=== PATIENT | male | born 1945 | race Caucasian/White ===

== ENCOUNTER 2017-05-10 11:50 | Inpatient (IN) ==
--- NOTE | 2017-05-10 12:43 | EKG Report ---
Test Performed on : 05/10/2017 12:29:55 PM Test Reason : alt. mental status Blood Pressure : / mmHG Vent. Rate : 077 BPM Atrial Rate : 077 BPM P-R Int : 148 ms QRS Dur : 092 ms QT Int : 432 ms P-R-T Axes : 021 -54 139 degrees QTc Int : 488 ms Poor data quality, interpretation may be adversely affected Sinus rhythm. with occasional premature ventricular complexes. Left anterior fascicular block Inferior infarct (cited on or before 12-APR-2012) Cannot rule out Anterior infarct , age undetermined Abnormal ECG When compared with ECG of 06-JAN-2013 21:37, Significant changes have occurred Unconfirmed Result
--- NOTE | 2017-05-10 13:49 | Diag Imaging Result Doc PS360 ---
EXAM: HEAD W/O CONTRAST HISTORY: stroke like symptoms TECHNIQUE: COMPARISON: 04/12/2012 FINDINGS: Subtle hypodense area at the junction of the left temporal and occipital lobes. No parenchymal hemorrhage. No epidural or subdural hematoma. No subarachnoid hemorrhage. No mass identified on this noncontrasted exam. No hydrocephalus. There is atrophy with chronic microvascular ischemic changes. No sinus opacification. IMPRESSION: 1.No hemorrhage. 2.Atrophy with chronic microvascular ischemic changes. 3.Subtle hypodense area at the junction of the left temporal and occipital lobes which may represent a subacute infarct. 4.A preliminary report was called to the emergency room at 1:45 PM. Electronically signed by Benjamin Foley 05/10/2017 1:47 PM
--- NOTE | 2017-05-10 13:51 | Diag Imaging Result Doc PS360 ---
EXAM: CHEST-PORTABLE HISTORY: stroke like symptoms TECHNIQUE: AP upright portable chest at 1337 COMMENT: There is COPD. There are granulomatous calcifications in the right hilum and apparently in the right midlung. Compared to the previous study of 09/07/2016 the appearance of the chest has not changed significantly. IMPRESSION: COPD. Electronically signed by Quinton Glynn 05/10/2017 1:49 PM
[2017-05-10 14:33] LABS: MANUAL DIFF NEEDED? NO; URINE CULTURE NEEDED? NO; URINE MICRO REVIEW NEEDED? NO; URINE SOURCE CLEAN CATCH
[2017-05-10 14:39] LABS: BASO% 0.8 % (0.0-0.8); EOS# 0.15 X1000 (0.0-0.7); EOS% 1.3 % (0.0-10.0); HEMATOCRIT 46.6 % (42.0-52.0); HEMOGLOBIN 15.2 g/dL (14.0-18.0); IMM GRAN# 0.14 X1000 (0.0-0.04); IMM GRAN% 1.2 % (0.0-0.5); LYMPH# 1.44 X1000 (1.2-3.4); LYMPH% 12.3 % (20.5-51.1); MCH 30.3 PG (27-31); MCHC 32.6 g/dL (33-37); MCV 92.8 FL (81-99); MONO# 1.05 X1000 (0.11-0.59); MPV 9.9 FL (7.4-10.4); NEUT% 75.4 % (42.2-75.2); PLT 203 X1000 (130-400); RBC 5.02 XMIL (4.7-6.1)
[2017-05-10 14:40] LABS: BILIRUBIN URINE NEGATIVE (NEGATIVE); BLOOD URINE NEGATIVE (NEGATIVE); COLOR YELLOW; GLUCOSE URINE NEGATIVE (NEGATIVE); LEUKOCYTES URINE NEGATIVE (NEGATIVE); NITRITE URINE NEGATIVE (NEGATIVE); PH URINE 6.5; PROTEIN URINE TRACE mg/dL (NEGATIVE); SP GRAVITY URINE 1.021; TURBIDITY URINE CLEAR (CLEAR); UR EPITHELIAL CELLS <10 /HPF (<10); URINE BACTERIA NEGATIVE /HPF; URINE RBC <10 /HPF (<10); URINE WBC <10 /HPF (<10); UROBILINOGEN URINE NORMAL (NORMAL)
[2017-05-10 14:51] LABS: INR 1.08; PROTIME 11.4 Seconds (9.2-11.7); PTT 26.4 Seconds (22.0-36.0)
[2017-05-10] MEDS ORDERED: ZOFRAN IV PRN (15:03)
[2017-05-10] MEDS ORDERED: TYLENOL PO PRN (15:03)
[2017-05-10] MEDS ORDERED: TORADOL IV PRN (15:03)
[2017-05-10 15:05] LABS: ALBUMIN 4.1 g/dL (3.5-5.0); POTASSIUM 4.3 mmol/L (3.5-5.1); TOTAL BILIRUBIN 0.58 mg/dL (0.20-1.00); TOTAL PROTEIN 7.1 g/dL (6.3-8.3)
--- NOTE | 2017-05-10 15:18 | PROVIDER DOCUMENTATION ---
This chart was entered by Juancarlos Haley Scribe, acting as scribe for Baltazar Coates MD. HPI-General Adult - General Chief Complaint: Altered Mental Status Stated Complaint: AMS Time Seen by Provider: 05/10/17 12:22 Source: patient, family Allergies/Adverse Reactions: Patient Allergies Allergy/AdvReac Type Severity Reaction Status Date / Time No Known Allergies Allergy Verified 05/10/17 12:25 Home Medications: Home Medication List Medication Instructions Recorded Confirmed Last Taken Type Amlodipine [Norvasc] 5 mg PO DAILY 01/06/13 09/07/16 09/06/16 07:00 History Aspirin [Ecotrin] 81 mg PO DAILY 01/06/13 09/07/16 09/06/16 07:00 History Carvedilol [Coreg] 6.25 mg PO BID 01/06/13 09/07/16 09/06/16 20:00 History Potassium Chloride 10 meq PO DAILY 01/06/13 09/07/16 09/06/16 07:00 History Warfarin [Coumadin] 3 mg PO DIRECTED 01/06/13 09/07/16 09/06/16 07:00 History Isosorbide Mononitrate E.r. [Imdur] 30 mg PO DAILY 11/23/13 09/07/16 09/06/16 07 :00 History Budesonide/Formoterol Fumarate 10.2 gm IH BID 02/15/14 09/07/16 09/06/16 20:00 History [Symbicort 80-4.5 Mcg Inhaler] Warfarin Sodium 1.5 mg PO DIRECTED 09/05/15 09/07/16 09/05/16 08:00 History - History of Present Illness -Gen Adult Nature of Presenting Problems: 71 yo M presents to the ER with complaint of trouble remembering and saying what he wanted to say since this AM. Pt denies slurred speech. Pt had some trouble ambulating, but has improved some. PT has been off his blood thinners since May 06 preparing for a prostate biopsy. Quality of Pain: reports: none Severity: reports: mild Onset/Duration: reports: this morning Timing: reports: still present Associated Symptoms: reports: other (trouble remembering and ambulating) Review of Systems - Adult - REVIEW OF SYSTEMS - ADULT Constitutional: denies: chills, fever Cardiovascular: denies: chest pain, palpitations Respiratory: denies: cough, shortness of breath Neurological: reports: see HPI, other (trouble trying to remebering, trouble ambulating) All Other Systems: Reviewed and Negative Past History - Adult - PAST MEDICAL HISTORY-ADULT Review of Records: reports: Old Records Reviewed, Nursing Assessment Review, Medications Reviewed, Social history reviewed & non-contributory. Major Childhood Illnesses: reports: denies history Cardiovascular: reports: CAD, HTN, hyperlipidemia Respiratory: reports: COPD Gastrointestinal: reports: denies history Obstetrical/Gynecological: reports: denies history Genitourinary: reports: other (BPH) Musculoskeletal: reports: denies history Neurological: reports: denies history Endocrine/Immune: reports: denies history Other Conditions: reports: denies history - PRIOR SURGERIES/PROCEDURES Surgical/Procedure History: reports: appendectomy, CABG, other (mechanical aortic valve) - IMMUNIZATION STATUS Childhood Immunizations: See Nurse Assessment Flu Vaccine: See Nurse Assessment - FAMILY HISTORY Family History: cancer (lung-father) Physical Exam-General - PHYSICAL EXAM-ADULT Initial Vital Signs Reviewed: Yes - CONSTITUTIONAL General Appearance: appears well, no apparent distress, slow to respond - RESPIRATORY Respiratory: chest non-tender, lungs clear, normal breath sounds - CARDIOVASCULAR Cardiovascular: normal peripheral pulses, regular rate, rhythm - NEUROLOGIC Neurologic: other (no slurred speech, slow to respond, trouble remembering) Progress - PLAN OF CARE/RESULTS Progress/Plan/Lab Results: Vital Signs - 8 hr 05/10/17 12:00 Temperature 97.7 F Pulse Rate 87 Respiratory Rate 18 Blood Pressure 93/58 O2 Sat by Pulse Oximetry 96 Orders Category Date Time Status Cardiac Monitoring DIRECTED Care 05/10/17 13:12 Active Finger Stick Blood Sugar (ED) DIRECTED Care 05/10/17 13:12 Active Fingerstick Blood Sugar [FSBS/Accucheck Result] NOW Care 05/10/17 12:31 Active Misc. NRSG Communication Order DIRECTED Care 05/10/17 13:12 Active CHEST-PORTABLE [RAD] Stat Exams 05/10/17 13:12 Ordered HEAD W/O CONTRAST [CT] Stat Exams 05/10/17 13:12 Ordered CBC WITH ELECTRONIC DIFF [HEME] Stat Lab 05/10/17 13:12 Uncollected COMPREHENSIVE METABOLIC PANEL [CHEM] Stat Lab 05/10/17 13:12 Uncollected PROTIME WITH INR [COAG] Stat Lab 05/10/17 13:12 Uncollected PTT [COAG] Stat Lab 05/10/17 13:12 Uncollected TROPONIN T Stat Lab 05/10/17 13:12 Uncollected URINALYSIS W/POSS RFLX CULT-1 [URINALYSIS] Stat Lab 05/10/17 13:12 Uncollected EKG [EKG] Stat Ther 05/10/17 12:30 Draft EKG [EKG] Stat Ther 05/10/17 13:12 Ordered Result Diagrams: 05/10/17 14:10 05/10/17 14:10 - EKG 1 Time of EKG reading by physician:: 13:22 EKG Read and Signed by:: Baltazar Coates EKG Interpretation (*Must complete 3 of following elements*): Abnormal (left anterior fasicular block, inferior infarct, age undetermined) Rate: 77 Rhythm: sinus rhythm with occasional premature ventricular comlpexes [place] Interval: normal ST Wave: normal - CONSULTS/PCP/HOSPITALIST Notification #1 *Consult/PCP/Hospitalist*: consulted Dr. More Time Discussed: 15:01 Reason/Comments: admit Consult Disposition: Admit Departure - Departure Date of Disposition Decision: 05/10/17 Time of Disposition Decision: 03:16 DIAGNOSIS: CVA (cerebral vascular accident) Disposition: ADMITTED INPATIENT 09 Certified Medical Emergency: Emergent Condition: Fair Referrals and Follow-Ups: Paul More Jr, MD [Primary Care Provider] - - Critical Care Note This patient required my direct & personal management of CC.: No This chart was documented by the indicated scribe, (Juancarlos Haley Scribe) and accurately reflects the services I performed and decisions made by me, Baltazar Coates MD, as attested by the provider's signature.
--- NOTE | 2017-05-10 15:46 | ED EKG INTERP ---
This chart was entered by Juancarlos Haley Scribe, acting as scribe for Baltazar Coates MD. EKG Interpretation - EKG Time of EKG reading by physician:: 15:32 EKG Read and Signed by:: Baltazar Coates EKG Interpretation (*Must complete 3 of following elements*): Abnormal Rate: 83 Rhythm: sinus tach with 2nd degree AV block with 2:1 AV conduction with premature s [place]: right QRS: normal ST Wave: normal Comments: inferior infarct, age undetermined This chart was documented by the indicated scribe, (Juancarlos Haley Scribe) and accurately reflects the services I performed and decisions made by me, Baltazar Coates MD, as attested by the provider's signature.
--- NOTE | 2017-05-10 16:06 | EKG Report ---
Test Performed on : 05/10/2017 3:02:17 PM Test Reason : Stroke like symptoms Blood Pressure : / mmHG Vent. Rate : 083 BPM Atrial Rate : 131 BPM P-R Int : 000 ms QRS Dur : 082 ms QT Int : 430 ms P-R-T Axes : 000 238 164 degrees QTc Int : 505 ms Sinus tachycardia. with 2nd degree AV block (Mobitz I). with 2:1 AV conduction. with premature supra ventricular complexes. Right superior axis deviation Inferior infarct (cited on or before 12-APR-2012) Abnormal ECG When compared with ECG of 10-MAY-2017 15:00, (Unconfirmed) Sinus rhythm. has replaced Atrial fibrillation. Non-specific change in ST segment in Inferior leads Unconfirmed Result
[2017-05-10] MEDS: LOVENOX SUBQ SCH (17:47)
[2017-05-10] MEDS: ROCEPHIN 1 GM/NS 1 GM/50 ML IVPB IV SCH (17:48)
[2017-05-10] MEDS: NS 1,000 ML IV SCH (17:48)
--- NOTE | 2017-05-10 17:55 | HISTORY AND PHYSICAL ---
CHIEF COMPLAINT: Altered mental status. PRESENT ILLNESS: The patient around 9 a.m. this morning became much more confused. Was going to his computer screen and family member states that he could not remember his password, and they noticed that there were several other things he could not remember. He still, though alert, has trouble remembering. He does have some underlying dementia, but this is much different than what I have noticed in the office. It is interesting that just in the last few days, he had been taken off of his warfarin and had been given Lovenox and then taken off of that, so that he could get a biopsy of his prostate gland. MEDICATIONS: Home medications include B12 dots 500 mcg daily, 81 mg aspirin daily. Caltrate 600+ D up to 1500 mg calcium daily. Coumadin 3 mg tablets. Fosamax 70 mg weekly for osteoporosis and fractured vertebra. Imdur 30 mg daily. Potassium 10 mEq daily. Norvasc 5 mg 1-1/2 pills daily. Rapaflo 8 mg capsules daily. Symbicort 160/4.5 at 2 puffs every 12 hours. Testosterone 200 mg in oil, 1 mL every 2 weeks. Tramadol 50 mg twice daily for pain. Dyazide 1 capsule daily. Vitamin D2, 50,000 units once a week. MEDICAL HISTORY: He has had a previous mechanical aortic valve replacement. He has had a CABG. He has had COPD. Hyperlipidemia, hypertension, peripheral vascular disease with the carotids and he has had chronic pain syndrome. He has had a little bit of dementia, scored 23/30 on a cognitive exam within the last few months, but he is much worse today. REVIEW OF SYSTEMS: I am not sure if it is accurate or not. I asked him all the pertinent questions and he seemed to think that they were all normal, but I asked him what day it was and he could not tell me. He could not tell me what month, what year it was. He could not tell me that he was in the hospital, so he was still very confused. He did remember my name. SURGICAL HISTORY: Includes an appendectomy and CABG, and mechanical aortic valve replacement. FAMILY HISTORY: Positive for lung cancer with his father. VITAL SIGNS: On physical exam, temperature 97.7 degrees Fahrenheit. Pulse is 87, regular. Respirations 18. Blood pressure was a little low at 93/58. He has been given some pain medication. LABORATORY: Shows an INR of only 1.08, but he has been off of his warfarin for the procedure. White count 11,730. Urinalysis was essentially normal. Chemistry profile was essentially normal, though his creatinine is up a little bit at 1.5. His last creatinine at the office during a physical exam was 0.9, so he may be a little dehydrated, perhaps from his procedure. White count being a little high as well. It is possible that he has an infection. PHYSICAL EXAM: GENERAL: He is a well-developed, well-nourished, white male who is very confused, but in no apparent distress. HEENT: Normocephalic. EOMs intact. PERRLA. Throat clear. Fundi not seen well. NECK: Supple without thyromegaly, lymphadenopathy, or carotid bruits. LUNGS: Clear to auscultation and percussion without rhonchi, rales, or wheezes. Chest x-ray was clear. HEART: Regular rate and rhythm without murmurs, gallops, or friction rubs. ABDOMEN: Soft. Active bowel sounds. No organomegaly or tenderness. NEUROLOGIC: Cranial nerves 2-12 intact grossly. Sensory and motor intact. Reflexes 1+ all. Toes are upgoing. Neurologically, I do not find any weakness. PLAN: Will consult Urology, Neurology and Cardiology. We will give him some IV fluids. We will go ahead since he is a little hypotensive, his white count is up, at his creatinine is up and hydrate him and do blood cultures and start him on antibiotics. DIAGNOSES: 1. Altered mental status. 2. Questionable cerebrovascular accident as on the CT scan, there is a possible subacute infarct between the left occipital and left parietal lobes. 3. Chronic pain syndrome. 4. Coronary artery disease. 5. Status post aortic valve replacement, mechanical. cc: Paul More Jr, MD
--- NOTE | 2017-05-10 19:20 | CONSULTATION ---
DATE OF CONSULTATION: 05/10/2017 ATTENDING AND REFERRING PHYSICIAN: Paul More Jr, MD. HISTORY OF PRESENT ILLNESS: This 71-year-old male has a history of an elevated PSA to 5.17. His 4K score was evaluated as high risk for prostate cancer. He underwent transrectal prostate ultrasound and biopsies on 08 May. He had received Levaquin 500 mg p.o. the day before the biopsy, the day of the biopsy, and the day after the biopsy. He received 80 mg of gentamicin IM right before the biopsy. He states that he did well after the biopsy, but was noted today to be confused. He has mild dementia, but this confusion was worse. The patient currently states he just does not feel right. He is on Rapaflo for obstructive voiding symptoms. His prostate ultrasound volume was 128 cubic cm. His urinalysis at admission was negative. PAST MEDICAL HISTORY: Hypertension, elevated cholesterol, coronary artery disease, hypogonadism, erectile dysfunction. CURRENT MEDICATIONS: Are documented on the chart and include Rapaflo and testosterone cipionate. PAST SURGICAL HISTORY: Coronary artery bypass grafting, aortic valve replacement. Appendectomy. SOCIAL HISTORY: No tobacco or alcohol use. ALLERGIES: No known drug allergies. REVIEW OF SYSTEMS: He states that usually he is not having any problems. He denies any problems with diabetes, strokes or seizures. PHYSICAL EXAMINATION: General: An obese, age apparent, normally developed, white male, who is cooperative, but appears somewhat confused. HEENT: Normal for age. Lungs: Clear. Cardiovascular: Regular rate and rhythm. Abdomen: Obese, soft. No hepatosplenomegaly or masses. Normal bowel sounds. : Normal male, both testes down. Scrotal exam is normal. Rectal Exam: Deferred. On the 08 of May it revealed an enlarged (greater than 80 g) smooth and symmetric prostate. Extremities: No clubbing, cyanosis, or edema. Neuro: No focal deficits. LABORATORY EVALUATION: He has a white count of 11.73, a hemoglobin 15.2, hematocrit of 46.6 and platelets are 203,000. Serum electrolytes are normal. BUN 26, creatinine 1.5. His creatinine on 05 April was 1.3. Urinalysis had negative dipstick and negative microscopic exam. IMPRESSION: 1. Enlarged prostate with obstructive voiding. 2. Mental status changes. 3. Prostate ultrasound and biopsy 2 days ago. 4. If this was due to urosepsis, usually the urine would have many white blood cells and bacteria. RECOMMEND: 1. Continuing Rapaflo at 8 mg a day. 2. CT stone search to ensure there is no prostate abscess. Thank you for this consultation. cc: MD Paul Gore Jr, MD
--- NOTE | 2017-05-10 22:27 | Diag Imaging Result Doc PS360 ---
EXAM: ABDOMEN/PELVIS W/O CONTRAST - 05/10/2017 HISTORY: recent prostate biopsy with mental status changes. TECHNIQUE: Without contrast per request the referring provider. Dose reduction protocol. COMPARISON: None. FINDINGS: The visualized lung bases appear clear except for mild subsegmental atelectasis or scarring. There are several fluid density lesions in the liver, largest of which measures 1.9 cm, compatible with cysts. There are some tiny low-density liver lesions which are difficult to specifically evaluate for density due to their small size is, but these likely also represent cysts. There are no substantial abnormalities of the spleen, adrenal glands, or pancreas identified. There are no calcified gallstones or pericholecystic inflammation seen. There is a small nonobstructing stone in the left kidney. There is no obstructing renal stone or hydronephrosis identified. There is a 1.5 cm fluid density lesion at the upper right kidney and there is a 2.8 cm fluid density lesion at the mid left kidney, compatible with cysts. There are no abnormally enlarged lymph nodes identified. There are atherosclerotic calcifications noted. The prostate is substantially enlarged, measuring up to 6.5 cm in AP dimension by up to 7.5 cm in transverse dimension. There is associated mass effect on the base of the urinary bladder. The urinary bladder lizarraga do not appear substantially thickened. There is an apparent ovoid or crescent-shaped stone in the left posterior urinary bladder lumen measuring approximately 12 x 3 mm. There are several apparent generalized thickening of the lizarraga of the rectum with haziness at. Rectal fat and presacral thickening. This may relate to proctitis. There is a small amount of air adjacent to the posterior margin of the prostate which appears nondescriptive likely relates to recent prostate biopsy. There is no discrete abscess identified. The rectosigmoid colon is noted to be elongated, compatible with chronic change. There is a moderate amount retained fecal debris in the colon. There is no evidence of bowel obstruction. There is no free intraperitoneal air identified. IMPRESSION: Small hepatic cysts. Renal cysts. Small nonobstructing stone in left kidney. No hydronephrosis. Substantial enlarged prostate. Small amount of extraluminal air adjacent to posterior marginal of prostate, likely related to recent biopsy. Approximately 12 x 3 mm stone in left posterior urinary bladder lumen. Apparent proctitis. No discrete abscess. Apparent constipation. Electronically signed by Bj Potts 05/10/2017 10:25 PM
[2017-05-10] MEDS: COREG PO SCH (22:35)
[2017-05-11] MEDS: NS 1,000 ML IV SCH ×3 (03:53→18:39)
[2017-05-11] MEDS: ROCEPHIN 1 GM/NS 1 GM/50 ML IVPB IV SCH ×2 (06:00→18:39)
[2017-05-11] MEDS: LOVENOX SUBQ SCH (06:01)
[2017-05-11 08:42] LABS: CALCIUM 8.5 mg/dL (8.8-10.2); POTASSIUM 3.1 mmol/L (3.5-5.1)
[2017-05-11] MEDS ORDERED: KLOR-CON PO SCH (09:00)
[2017-05-11] MEDS ORDERED: NORVASC PO SCH (09:00)
--- NOTE | 2017-05-11 09:32 | PROGRESS NOTE ---
DATE: 05/11/2017 SUBJECTIVE: The patient says he is not having any pain. He is still very confused. I asked him what month this was and he said . I asked him what day it was he said and it is Sunday. I asked him what year it was, and he said April. OBJECTIVE: Vital Signs: Blood pressure of 123/71, after being low when he first came in at 93/58. His respirations are 18. Pulse 95 and regular, temp 97.6 degrees Fahrenheit. O2 saturation is 98% on 2 L of oxygen but he does have a history of some COPD. Potassium is 3.1 so we will supplement. Creatinine is down to 1.3 from 1.5 but at the office it was 0.9. HEENT: Normocephalic. EOMs intact. PERRLA. Throat clear. Lungs: Clear to auscultation and percussion without rhonchi, rales, or wheezes. Heart: Regular rate and rhythm without murmurs, gallops, or friction rubs. Abdomen: Soft. Active bowel sounds. No organomegaly or tenderness. Neurological: Intact grossly except for altered mental status. ASSESSMENT: 1. Altered mental status. 2. Dehydration. 3. Possible cerebrovascular accident. 4. Status post aortic valve replacement. 5. History of atrial fibrillation. 6. Hypokalemia. PLAN: Continue to treat with antibiotics, awaiting blood cultures. Cardiology, urology and neurology are seen. cc: Paul More Jr, MD
[2017-05-11] MEDS: RAPAFLO PO SCH (10:06)
[2017-05-11] MEDS: IMDUR PO SCH (10:07)
[2017-05-11] MEDS: ASPIRIN EC PO SCH (10:07)
[2017-05-11] MEDS: COREG PO SCH ×2 (10:07→21:49)
--- NOTE | 2017-05-11 10:27 | CONSULTATION ---
DATE OF CONSULTATION: 05/11/2017 REASON FOR CONSULTATION: Cardiology was consulted for altered mental status with known ischemic cardiomyopathy and aortic valve replacement. HISTORY OF PRESENT ILLNESS: Patient is disoriented, confused. History was obtained from the chart and discussing with Dr. More. He was admitted. Family apparently noticed that he could not remember and he does have some amount of dementia. He came in and underwent a CT scan of his head, which revealed subtle hypodense area of left temporooccipital lobe of suggestive of subacute infarct. The patient is confused. History could not be obtained in detail from him. However, he looks comfortable. Does not complain of chest pain or palpitations. REVIEW OF SYSTEMS: A 14-point review of systems could not be obtained accurately from the patient. HOME MEDICATIONS: Include Caltrate, Coumadin 3 mg, Fosamax 70 weekly for osteoporosis, Imdur 30, potassium supplements, Norvasc 5 mg 1-1/2 tablets daily, Rapaflo 8 mg capsule, Symbicort 160/4.5 at 2 puffs twice daily, testosterone, tramadol, Dyazide. Current medications additionally is Coumadin which was started. He is on Lovenox. PAST MEDICAL/SURGICAL HISTORY: 1. Coronary artery disease, status post coronary artery bypass grafting in 1998 with HOPKINS to left anterior descending artery, SVG to OM1, bridging graft SVG to OM2, SVG to RCA. 2. Aortic valve replacement. 3. The last cardiac catheterization 09/20/2010: Left anterior descending artery, 70% circumflex 75%. RCA proximal 100%. HOPKINS to LAD patent. Saphenous vein graft to PDA patent. Sequential saphenous vein graft to OM1 and OM2 revealed a patency of graft to OM1. OM2 occluded with [id number] collaterals. 4. Mechanical aortic valve placement. 5. COPD. 6. Dementia. 7. Appendectomy. 8. History of atrial fibrillation. FAMILY HISTORY: Positive for lung cancer. PHYSICAL EXAMINATION: Vital Signs: Blood pressure was 123/71. Heart: Jugular venous pressure was normal. First and second heart sounds were heard. Mechanical valve sounds noted. Respiratory System: Normal air entry. There is no crepitations or rhonchi. Abdomen: Soft. Central Nervous System: Alert, was disoriented, was moving all 4 extremities. Detailed central nervous system examination not performed. LABORATORY EXAMINATION: Revealed a WBC 11.7, hemoglobin 15, hematocrit 46, platelet count 203,000. Sodium 140, potassium 3.1, BUN 21, creatinine 1.3. Urine was negative. He had CT scan done and as above. He had abdominal and pelvic CT as well which revealed small nonobstructive stone in the left kidney. No hydronephrosis. Enlarged prostate. Proctitis. Other laboratory examination revealed PT/INR of 1.08. ASSESSMENT AND PLAN: Mr. Amara Freitas is a 71-year-old gentleman with history of coronary artery disease, status post coronary artery bypass grafting, mechanical aortic valve replacement, hypertension, dyslipidemia, mild dementia, who is admitted with altered mental status and CT scan suggestive of subacute infarct. PLAN: 1. His potassium was low which has been going to be repleted. We will get an echocardiogram to assess cardiac and valvular function. 2. Neurology. Dr. Casey has been consulted. 3. His INR is low. Would recommend Coumadin and Lovenox as planned. Given his stroke, he may warrant a transesophageal echocardiogram to look at the aortic valve as well. We will await for Dr. Casey's recommendations as well. 4. We will plan for this test next week on Sunday or Sunday depending on how he progresses. In the meantime, we will follow his lab work and PT/INR as well. Thank you for the consult. We will follow . cc: MD Paul Duran Jr, MD
--- NOTE | 2017-05-11 11:18 | ECHO REPORT ---
ORDER DATE: 05/10/2017 STUDY: Limited study with Definity. FINDINGS: Definity was used to evaluate left ventricular systolic function. Left ventricular cavity size was normal with an estimated ejection fraction of 60%. cc: MD Paul Duran Jr, MD
[2017-05-11] MEDS: DILAUDID IM PRN (11:29)
--- NOTE | 2017-05-11 13:55 | Diag Imaging Result Doc PS360 ---
EXAM: HEAD W/O CONTRAST INDICATION: dysphasia COMPARISON: 05/10/2017 FINDINGS: There is an evolving acute infarct involving the left temporal lobe that was also seen on the recent previous study. It is stable in size but is more hypoattenuating as compared to the previous study, as expected. No other acute infarcts are appreciated. There is extensive stable low attenuation in the periventricular and subcortical white matter suggesting advanced microangiopathy, and there appears to be a stable chronic lacunar infarct involving the nikole to the left of midline. There is stable diffuse brain atrophy. There is no discrete intracranial mass, mass effect, or intracranial hemorrhage. The surrounding soft tissues and bony structures are essentially unremarkable. IMPRESSION: 1.Evolving acute left temporal lobe infarct that was also seen, albeit more subtly, on the previous recent CT. 2.Otherwise, the brain is stable. Electronically signed by Iban Nair 05/11/2017 1:52 PM
--- NOTE | 2017-05-11 14:18 | CONSULTATION ---
DATE OF CONSULTATION: 05/11/2017 Mr. Freitas is 71 years old and he had a fairly abrupt onset of difficulty with communication yesterday. This was witnessed by a daughter, but she is not present to give firsthand report now. Other family present reports he seemed suddenly unable to communicate with speech and he seemed unsteady with gait. There was never unconsciousness, altered awareness, collapse. He has not had previous diagnosed clinical stroke. He has been taking warfarin chronically for metal heart valve but stopped that several days ago for prostate biopsy which was done. He has never had seizure or other neurologic event. There is no history of recent head injury. He does not use ethanol. Other than stopping warfarin, there has not been any recent medication changes. Workup here includes labs showing mild BUN elevation from baseline teens up to 26 and mild creatinine elevation from a baseline of 0.7-1.0 range up to 1.5. Initial noncontrast CT showed subtle left hemisphere ischemic change. His initial systolic blood pressure was 93, later blood pressures in the 120s. Heart rate has been stable in the 80s. He has been afebrile. There is past history of dyslipidemia treated with rosuvastatin, hypertension treated with amlodipine, carvedilol, hydrochlorothiazide. He does not smoke cigarettes. He has not been treated for diabetes mellitus. He has not had elevated blood sugars this admission. There is report of cognitive impairment. Family present at the bedside now reports he has been doing well with that in recent months, not particularly forgetful, able to manage himself independently. On exam, Mr. Freitas is awake, alert, attentive. He is appropriate. He followed some simple commands consistently. He could not follow commands which required digit distinction and right/left distinction. He named objects but could not name parts of objects. He could not follow written commands. He was able to repeat some words but could not repeat pronouns correctly. I did not test his handwriting. Visual field is full tested grossly by confrontational finger counting. Extraocular movements are full. Facial motility is symmetric. Gag is intact. Tongue is midline. Palate is midline. He can hear. Shoulder shrug is good bilaterally. I can overcome the right deltoid grading 4/5. Tone is very slightly increased in the right arm. He did rapid alternating movements well with each hand. He did well on finger-to- nose testing bilaterally. I did not test his gait. Plantar response is silent bilaterally. IMPRESSION: Dysphasia, minimal right hemiparesis, reported sudden onset yesterday. He has risk factors for cerebrovascular ischemic problems including mechanical heart valve, off warfarin in recent days, hypertension, dyslipidemia, age. The CT findings are noted and, in light of his clinical syndrome, seem likely responsible for this episode. The difficult dilemma regarding when to resume anticoagulation was discussed at length with the patient and family. To help with that decision, I think we can repeat CT to better delineate the extent of infarction. In light of his relatively minimal deficit, slight clinical improvement, reason for anticoagulation I would favor resuming warfarin sooner than later. I discussed frankly with family the risks for converting ischemic infarction into hemorrhagic infarction and possibility that could be devastating. I would continue treating lipids aggressively, continue treating blood pressure cautiously, if at all, assuming he does not have ischemic heart problems. Non neurologic concern will be how soon after prostate biopsy he may resume warfarin. I did not discuss that with family or patient. Thanks for asking me to see Mr. Freitas. cc: MD Paul Giles III, Jr, MD MTDD
[2017-05-11] MEDS ORDERED: COUMADIN PO SCH (21:00)
[2017-05-11] MEDS ORDERED: KLOR-CON PO ONE (21:08)
[2017-05-11] MEDS: CRESTOR PO SCH (21:49)
[2017-05-11] MEDS: COLACE PO SCH (21:49)
[2017-05-11] MEDS: KLOR-CON PO SCH (21:49)
[2017-05-12] MEDS: NS 1,000 ML IV SCH ×4 (03:10→15:13)
[2017-05-12 03:50] LABS: AGAP 13; BUN 16 mg/dL (8-22); CALCIUM 8.1 mg/dL (8.8-10.2); CHLORIDE 103 mmol/L (98-107); COSMO 282; POTASSIUM 3.5 mmol/L (3.5-5.1); SODIUM 141 mmol/L (136-145); TCO2 25 mmol/L (25-35)
[2017-05-12 04:38] LABS: MANUAL DIFF NEEDED? NO
[2017-05-12 05:05] LABS: BASO% 0.8 % (0.0-0.8); EOS# 0.33 X1000 (0.0-0.7); EOS% 3.8 % (0.0-10.0); HEMATOCRIT 46.6 % (42.0-52.0); HEMOGLOBIN 14.8 g/dL (14.0-18.0); IMM GRAN# 0.08 X1000 (0.0-0.04); IMM GRAN% 0.9 % (0.0-0.5); LYMPH# 1.29 X1000 (1.2-3.4); LYMPH% 14.8 % (20.5-51.1); MCHC 31.8 g/dL (33-37); MCV 94.3 FL (81-99); MONO# 0.68 X1000 (0.11-0.59); MONO% 7.8 % (1.7-9.3); MPV 10.1 FL (7.4-10.4); NEUT% 71.9 % (42.2-75.2); PLT 177 X1000 (130-400); RBC 4.94 XMIL (4.7-6.1)
[2017-05-12] MEDS: ROCEPHIN 1 GM/NS 1 GM/50 ML IVPB IV SCH (05:07)
[2017-05-12] MEDS: COREG PO SCH ×2 (09:00→21:40)
[2017-05-12] MEDS: IMDUR PO SCH (09:00)
[2017-05-12] MEDS: ASPIRIN EC PO SCH (09:00)
[2017-05-12] MEDS ORDERED: K-LYTE CL PO SCH (09:00)
[2017-05-12] MEDS: KLOR-CON PO SCH (09:00)
[2017-05-12] MEDS: COLACE PO SCH ×2 (09:00→21:40)
[2017-05-12] MEDS: RAPAFLO PO SCH (09:00)
[2017-05-12 09:57] LABS: INR 1.04; PROTIME 10.9 Seconds (9.2-11.7)
--- NOTE | 2017-05-12 13:46 | PROGRESS NOTE ---
DATE: 05/12/2017 This is coverage for Dr. More. SUBJECTIVE: Patient overall doing fairly well. Says he has minimal weakness in his right arm. He is talking with his son today. He had some bleeding last evening rectally and in his urine. He had a prostate biopsy a couple of days ago. I spoke with Dr. Rosenthal and he says he is stable from a urologic standpoint. The patient had some ventricular tachycardia and has some paroxysmal atrial fibrillation chronically. He is followed by Dr. Yadav and Dr. Lara and Dr. Casey having had a stroke recently. He does have mild weakness and right arm and leg but overall this remains mild and may be improving it appears. OBJECTIVE: Vital signs: Afebrile, pulse 60, respirations 17, blood pressure 122/88, O2 saturation room air 98%. CV: Irregularly irregular. Lungs: CTA. Extremities: No edema. Mild weakness right arm noted, minimal right leg. Neuro: Mild baseline dementia it appears but he does answer questions appropriately and overall is doing fairly well in regard to mentation. Blood cultures x2 remain negative. LABS: White count 8.69, hemoglobin 14.8, platelets 177,000. PT 10.9, INR 1.04. Sodium 141, potassium 3.5, chloride 103, CO2 25, BUN 16, creatinine 1.1, glucose 97, calcium 8.1, magnesium 1.9. ASSESSMENT: 1. Cerebrovascular accident ischemic variety with right arm and leg weakness, mild. 2. In supraventricular tachycardia. 3. Paroxysmal atrial fibrillation on chronic anticoagulation prior to this hospitalization. 4. Mechanical valve on chronic anticoagulation again prior to prostate biopsy in this hospitalization. 5. History of recent prostate biopsy. 6. Gross hematuria and rectal bleeding thought related to recent prostate biopsy. 7. Chronic obstructive pulmonary disease. 8. Dementia. 9. Hyperlipidemia. 10. History of carotid stenosis. PLAN: At this time quite a dilemma on whether to start him back on his Coumadin or not. He had Coumadin, Lovenox last evening but that was stopped as he was bleeding. We are going to hold that today and reconsider starting that back tomorrow. I will speak with Dr. Lara about this in detail as well. Potassium is normalized now. We will watch that closely. Will continue to follow the blood pressure. Not treating that overly aggressive at this point. He is on aspirin and will continue Coreg and Imdur. cc: MD Paul Collado Jr, MD
--- NOTE | 2017-05-12 17:59 | PROGRESS NOTE ---
DATE: 05/12/2017 SUBJECTIVE: The patient still has a little difficulty with word finding. He continues without chest discomfort or dyspnea. He has been in sinus rhythm with some episodes of what is probably atrial fibrillation with aberrancy. He had some blood-tinged urine this morning. OBJECTIVE: Vital Signs: Blood pressure 106/70, heart rate 83 and regular. Neck: There is no significant jugular venous distention. Chest: Clear to auscultation. Cardiac Exam: Reveals a regular rate and rhythm with mechanical 2nd heart sound. No evidence of peripheral edema. LAB DATA: Includes hematocrit 46.6, INR 1.04, potassium 3.7, BUN 16, creatinine 1.1. IMPRESSION: 1. Status post recent cerebrovascular accident about 48 hours ago, possibly embolic given patient with mechanical aortic valve and paroxysmal atrial fibrillation off anticoagulation to facilitate prostate biopsy. 2. Paroxysmal atrial fibrillation. 3. Status post mechanical aortic valve replacement. 4. Atherosclerotic coronary disease with history of previous coronary bypass. 5. Chronic obstructive pulmonary disease. RECOMMENDATIONS: At this point would cautiously initiate Lovenox 80 mg subcu q.12 hours and monitor response. cc: MD Paul Mcfarland Jr, MD
[2017-05-12] MEDS: LOVENOX SUBQ SCH (18:05)
--- NOTE | 2017-05-12 18:28 | CONSULTATION ---
DATE OF CONSULTATION: 05/12/2017 REFERRING PHYSICIAN: Dr. Paul More. We received a consult for this patient for evaluation of a small amount of blood per rectum and blood in his urine. The patient had a prostate biopsy prior to admission. Per Dr. Rosenthal, this is an expected finding this soon after prostate biopsy. The patient adamantly denies rectal bleeding or GI bleeding. He does not want a GI evaluation. Therefore, a full consultation was not performed. We are happy to be available if the bleeding recurs. At this time, we will sign off. cc: MD Paul Leger Jr, MD MTDD
[2017-05-12] MEDS: CRESTOR PO SCH (21:40)
[2017-05-13] MEDS ORDERED: FLEET ENEMA PR ONE (02:12)
[2017-05-13] MEDS: NS 1,000 ML IV SCH (04:30)
[2017-05-13] MEDS: LOVENOX SUBQ SCH ×2 (06:23→17:55)
[2017-05-13] MEDS: ASPIRIN EC PO SCH (09:30)
[2017-05-13] MEDS: IMDUR PO SCH (09:30)
[2017-05-13 09:32] LABS: MANUAL DIFF NEEDED? NO
[2017-05-13] MEDS: RAPAFLO PO SCH (09:32)
[2017-05-13] MEDS: COLACE PO SCH ×2 (09:33→22:03)
[2017-05-13] MEDS: COREG PO SCH ×2 (09:33→22:03)
[2017-05-13 09:36] LABS: BASO% 0.8 % (0.0-0.8); EOS# 0.26 X1000 (0.0-0.7); EOS% 3.3 % (0.0-10.0); HEMATOCRIT 44.6 % (42.0-52.0); HEMOGLOBIN 14.5 g/dL (14.0-18.0); IMM GRAN# 0.07 X1000 (0.0-0.04); IMM GRAN% 0.9 % (0.0-0.5); LYMPH% 11.5 % (20.5-51.1); MCH 30.1 PG (27-31); MCHC 32.5 g/dL (33-37); MCV 92.5 FL (81-99); MONO# 0.62 X1000 (0.11-0.59); MONO% 7.9 % (1.7-9.3); MPV 9.5 FL (7.4-10.4); NEUT% 75.6 % (42.2-75.2); PLT 158 X1000 (130-400); RBC 4.82 XMIL (4.7-6.1)
[2017-05-13 09:43] LABS: INR 1.06; PROTIME 11.2 Seconds (9.2-11.7)
[2017-05-13 09:56] LABS: AGAP 12; BUN 7 mg/dL (8-22); CALCIUM 7.5 mg/dL (8.8-10.2); CHLORIDE 106 mmol/L (98-107); COSMO 281; POTASSIUM 3.5 mmol/L (3.5-5.1); SODIUM 142 mmol/L (136-145); TCO2 24 mmol/L (25-35)
--- NOTE | 2017-05-13 11:15 | PROGRESS NOTE ---
DATE: 05/13/[address] More. SUBJECTIVE: The patient had some difficulty about 5:30 this morning per family members. He became more confused. Tried to take his IV out. Wanted to walk around the hospital and he did walk around the floor without any difficulty. Then he became a little more confused. Then he came back to the room and got back to his baseline quickly. He has had no change in his motor skills. He is back to his baseline that he had been after admission, as to what I has seen him yesterday. He has some word finding difficulties and is overall minimally weak in the right arm but is stable. OBJECTIVE: Vital signs: Afebrile, pulse is 81, respirations 21, blood pressure 125/64, O2 saturation room air 95 to 97%. Telemetry is showing some runs of ventricular tachycardia. Also some A-fib. CV: Irregularly irregular. Lungs: Distant breath sounds. CTA. HEENT: PERRL EOMI. Neurologic: Mild word finding difficulties. Alert and oriented x1. [employer] Lending Tr[employer] strength minimally diminished right arm which is what I had seen him at yesterday. No significant leg weakness. Patient answers questions. He would not allow blood draw this morning earlier when he was confused but he is back more to himself now. ASSESSMENT: 1. Delirium. 2. History of ischemic cerebrovascular accident with some word finding difficulties and right arm weakness primarily, which is fairly mild. 3. Nonsustained ventricular tachycardia episodes, asymptomatic. 4. Paroxysmal atrial fibrillation. 5. Mechanical valve. Back on Lovenox per Dr. Lara. 6. Recent prostate biopsy with some mild persistent bloody urine. 7. No evidence for rectal bleeding. 8. Chronic obstructive pulmonary disease. 9. Dementia. 10. Hyperlipidemia. 11. History of carotid stenosis. PLAN: At this point we will continue Lovenox per Dr. Lara and will need to resume the Coumadin at some point. Continue aspirin, Coreg, mild IV fluids, Rapaflo. I think he is having some sundowning and delirium likely related to his previous dementia and recent illness. I do not believe this is an extension of his stroke at this time but if he worsens then we will re-CT the head. cc: MD Paul Collado Jr, MD
--- NOTE | 2017-05-13 12:06 | PROGRESS NOTE ---
DATE: 05/13/2017 SUBJECTIVE: Patient had some confusion and sundowning last night but is clear this morning. His speech has improved. He denies chest discomfort or dyspnea. OBJECTIVE: Vital Signs: Blood pressure 125/64, heart rate 81, oxygen saturation 96% on room air. There is no significant jugular venous distention. Chest: Clear to auscultation. Cardiac Exam: Reveals a regular rate and rhythm with crisp mechanical 2nd heart sound. Gallop could not be appreciated. Extremities: Demonstrate mild ankle edema. IMPRESSION: 1. Status post recent cerebrovascular accident approximately 72 hours ago. Possibly embolic given patient with a mechanical aortic valve and paroxysmal atrial fibrillation, off anticoagulation to facilitate prostate biopsy. 2. Paroxysmal atrial fibrillation. 3. Status post mechanical aortic valve replacement. 4. Atherosclerotic coronary disease with history of previous coronary bypass. 5. Chronic obstructive pulmonary disease. RECOMMENDATIONS: 1. Continue Lovenox 80 mg subcutaneously q.12 cautiously. 2. Transesophageal echocardiography being considered by Dr. Yadav in the morning. Will make patient NPO after midnight tonight. cc: MD Paul Mcfarland Jr, MD
[2017-05-13] MEDS ORDERED: DULCOLAX PR ONE (14:29)
[2017-05-13] MEDS ORDERED: MILK OF MAGNESIA PO ONE (14:33)
[2017-05-13] MEDS: CRESTOR PO SCH (22:03)
[2017-05-14 06:48] LABS: INR 1.02; PROTIME 10.7 Seconds (9.2-11.7)
[2017-05-14] MEDS: LOVENOX SUBQ SCH ×2 (06:55→16:52)
[2017-05-14 07:18] LABS: AGAP 11; BUN 9 mg/dL (8-22); CALCIUM 7.6 mg/dL (8.8-10.2); CHLORIDE 105 mmol/L (98-107); COSMO 283; POTASSIUM 3.2 mmol/L (3.5-5.1); SODIUM 143 mmol/L (136-145); TCO2 27 mmol/L (25-35)
[2017-05-14 07:49] LABS: BASO% 0.8 % (0.0-0.8); EOS# 0.27 X1000 (0.0-0.7); EOS% 3.4 % (0.0-10.0); HEMATOCRIT 47.5 % (42.0-52.0); HEMOGLOBIN 14.8 g/dL (14.0-18.0); LYMPH# 1.36 X1000 (1.2-3.4); LYMPH% 17.2 % (20.5-51.1); MANUAL DIFF NEEDED? YES; MCH 30.1 PG (27-31); MCHC 31.2 g/dL (33-37); MCV 96.5 FL (81-99); MONO# 0.59 X1000 (0.11-0.59); MONO% 7.4 % (1.7-9.3); MPV 9.6 FL (7.4-10.4); NEUT% 71.2 % (42.2-75.2); PLT 149 X1000 (130-400); RBC 4.92 XMIL (4.7-6.1)
[2017-05-14 08:23] LABS: EOS 4 % (1-10); LYMPHS 12 % (21-51); MONO 10 % (1-9)
--- NOTE | 2017-05-14 08:55 | PROGRESS NOTE ---
DATE: 05/14/2017 Family reports Mr. Freitas is brighter and seems improved today. He seemed more confused transiently over the weekend without new motor deficit. That might have been temporary exacerbation of his presenting dysphagia. He has not had hydromorphone in a few days. I do not see anything else on the current medication list that likely would be associated with altered mentation. His systolic blood pressures have been recorded as low as 90s on a few occasions, but I am not sure those times correlate with any clinical changes. He continues off of warfarin. His repeat CT scan showed evolution of the acute left hemisphere infarction with no bleeding. That scan was done 3 days ago now. If he has more mental status change, we might consider repeating the scan to make sure there is not extension of infarction, bleeding or new infarction. We need to continue fluids and try to maintain adequate blood pressure. Thanks again for asking me to see Mr. Freitas. cc: MD Paul Giles III, Jr, MD MTDD
--- NOTE | 2017-05-14 09:45 | PROGRESS NOTE ---
DATE: 05/14/2017 SUBJECTIVE: The patient is feeling a little bit better. He had had some constipation issues over the weekend which have now resolved. During that time. He did not sleep well and he got more confused. This morning he is much more alert. He is oriented x3. He is scheduled for a TOBI. Potassium is slightly low at 3.2. His IV fluids have been stopped but he is slightly hypotensive with a blood pressure of 96/63. He has been placed back on Lovenox by Cardiology. GI did come to see the patient because of the possible proctitis but felt like this was just irritation from the prostate biopsy and that nothing was needed to be done. OBJECTIVE: Vital Signs: Stable with the exception of the blood pressure being just slightly low. He has no symptoms with this. HEENT: Normocephalic. EOMs intact. PERRLA. Throat clear. Lungs: Clear to auscultation and percussion without rhonchi, rales, or wheezes. Heart: Regular rate and rhythm without murmurs, gallops, or friction rubs at this point. He has had some atrial fibrillation over the weekend. Abdomen: Soft. Active bowel sounds. No organomegaly or tenderness. Neurological: Patient is much more alert. He is oriented x3. ASSESSMENT: 1. Cerebrovascular accident. 2. Intermittent cardiac arrhythmia including atrial fibrillation. 3. Status post aortic valve replacement, mechanical. 4. Hypokalemia. 5. Had been off of anticoagulants for his prostate biopsy. PLAN: Continue Lovenox at this point. Dr. Casey and I discussed keeping him off anticoagulants because of his CVA until Sunday, but cardiology felt that because of his arrhythmias that he needed to go back on the anticoagulation and restarted that over the weekend in my absence. We will replenish potassium after his TOBI. cc: Paul More Jr, MD
[2017-05-14] MEDS ORDERED: XYLOCAINE 4% TOPICAL SOLUTION ONE (11:11)
[2017-05-14] MEDS ORDERED: XYLOCAINE 2% VISCOUS ONE (11:11)
[2017-05-14] MEDS ORDERED: SODIUM CHLORIDE 0.9% 10 ML ONE (11:12)
[2017-05-14] MEDS ORDERED: ANESTHESIA PB SET 88 IN 5742 ONE (11:20)
[2017-05-14] MEDS ORDERED: NS 1,000 ML ONE (11:21)
[2017-05-14] MEDS ORDERED: DIPRIVAN 1% ONE (12:30)
--- NOTE | 2017-05-14 12:38 | ECHO REPORT ---
ORDER DATE: 05/14/2017 PROCEDURE: Transesophageal echocardiogram. INDICATIONS: Cerebrovascular accident, to rule out intracardiac mass or thrombus. TECHNIQUE: Informed consent was obtained from the patient. Intravenous access was established. The patient was brought to the cardiac catheterization laboratory. His oropharynx was anesthetized using lidocaine swish and swallow and Cetacaine spray. Anesthesia was present. Propofol was given. Please see detailed anesthesia records. A transesophageal probe was easily passed into the esophagus and ultrasound pictures were obtained. FINDINGS: 1. Normal left ventricular cavity size. Estimated ejection fraction of 35-40%. There is global hypokinesis. 2. Mechanical prosthetic valve in the aortic position was stable. 3. Mitral valve was normal. Pulmonic valve was normal. Tricuspid valve was normal. Left atrium was normal. 4. Left atrial appendage was normal. Right atrium was normal. 5. Saline contrast study did not reveal any patent foramen ovale. 6. Doppler studies revealed mild mitral regurgitation. 7. There is no aortic stenosis. There is mild aortic regurgitation. There is trace tricuspid regurgitation. 8. There is no pericardial effusion. 9. There is no obvious intracardiac mass or thrombus noted. 10. Descending aorta had layered plaque. Ascending aorta was normal. CONCLUSIONS: 1. Mechanical prosthetic valve in the aortic position functioning appropriately. There was no thrombus noted. 2. Saline contrast study was negative for patent foramen ovale. 3. Left ventricular ejection fraction 35-40%. cc: MD Aniya Duran PA Roger H. Moss Jr, MD
[2017-05-14] MEDS ORDERED: XYLOCAINE-MPF 2% ONE (13:32)
[2017-05-14] MEDS: ASPIRIN EC PO SCH (14:03)
[2017-05-14] MEDS: COLACE PO SCH ×2 (14:03→22:39)
[2017-05-14] MEDS: RAPAFLO PO SCH (14:03)
[2017-05-14] MEDS: COREG PO SCH ×2 (14:03→22:39)
[2017-05-14] MEDS: IMDUR PO SCH (14:03)
[2017-05-14] MEDS: KLOR-CON PO SCH (14:08)
[2017-05-14] MEDS: POTASSIUM CHLORIDE 20 MEQ/SWI 20 MEQ/100 ML IVPB IV SCH ×2 (17:46→17:47)
[2017-05-14] MEDS: NS 1,000 ML IV SCH (18:16)
[2017-05-14] MEDS: CRESTOR PO SCH (22:39)
[2017-05-15] MEDS: DILAUDID IM PRN (00:21)
[2017-05-15] MEDS: LOVENOX SUBQ SCH ×2 (06:14→18:42)
[2017-05-15] MEDS: NS 1,000 ML IV SCH ×3 (06:14→16:00)
[2017-05-15 07:19] LABS: INR 1.04; PROTIME 10.9 Seconds (9.2-11.7)
[2017-05-15 07:38] LABS: AGAP 10; BUN 10 mg/dL (8-22); CALCIUM 7.3 mg/dL (8.8-10.2); CHLORIDE 104 mmol/L (98-107); COSMO 281; POTASSIUM 3.9 mmol/L (3.5-5.1); SODIUM 141 mmol/L (136-145); TCO2 27 mmol/L (25-35)
--- NOTE | 2017-05-15 08:25 | Carotid Study ---
DATE: 05/11/2017 PROCEDURE: Bilateral duplex and color flow imaging of the carotid arteries performed using the [employer] (MM) Vivid E9 Ultrasound System with a 9L-D transducer. REFERRING PHYSICIAN: Paul More Jr., MD INTERPRETING PHYSICIAN: Jo Ann Jordan MD TECH: Gillian Watson Uma INDICATIONS: CVA - stroke (ICD-10 163.50). OBSERVED DATA RIGHT LEFT Brachial Blood Pressure Carotid Pulse Bruits: Carotid/Sub DIAGRAM OF ULTRASOUND IMAGING R L RIGHT INT EXT INT EXT LEFT Bradford (cm/s) Bradford (cm/s) Subclavian 54/0 Subclavian 43/0 CCA Proximal 35/6 CCA Proximal 55/11 CCA Distal 25/4 CCA Distal 49/15 Bulb 46/11 Bulb 38/10 ICA Proximal 49/18 ICA Proximal 27/10 ICA Mid 46/18 ICA Mid 31/11 ICA Distal 37/17 ICA Distal 29/10 ECA 37/6 ECA 39/10 Vertebral 34/9 A Vertebral 42/11 A ICA/CCA Ratio 1.39 ICA/CCA Ratio 0.56 % Stenosis 0%-39% % Stenosis 0%-39% PHYSICIAN INTERPRETATION: Mild atherosclerotic disease at the distal common and internal carotid arteries bilaterally without evidence of a hemodynamically significant lesion in either carotid system. cc: MD Paul Tatum Jr, MD
[2017-05-15] MEDS: RAPAFLO PO SCH (09:20)
[2017-05-15] MEDS: COREG PO SCH ×2 (09:20→22:05)
[2017-05-15] MEDS: KLOR-CON PO SCH (09:20)
[2017-05-15] MEDS: ASPIRIN EC PO SCH (09:21)
[2017-05-15] MEDS: COLACE PO SCH ×2 (09:21→22:05)
[2017-05-15] MEDS: IMDUR PO SCH (09:21)
--- NOTE | 2017-05-15 09:55 | PROGRESS NOTE ---
DATE: 05/15/2017 SUBJECTIVE: The patient is feeling much better. He is oriented x3. OBJECTIVE: Vital signs: Blood pressure is 108/66, pulse 76, respirations 18 and regular, pulse 79 and regular, temp 98.2 degrees Fahrenheit. HEENT: Normocephalic. EOMs intact. PERRLA. Throat clear. Lungs: Clear to auscultation and percussion without rhonchi, rales, or wheezes. Heart: Regular rate rhythm without murmurs, gallops, or friction rubs. Abdomen: Soft. Active bowel sounds. No organomegaly or tenderness. Neurologic: The patient is oriented x3. He seems to be much better mentally. ASSESSMENT: 1. Cerebrovascular accident. 2. Mechanical heart valve. 3. Status post prostate biopsy. PLAN: Will restart Coumadin right now at 3 mg at bedtime. At home he usually takes 3 mg 1 night and then 1.5 the next and then alternates in that fashion. Will get physical therapy to see him. cc: Paul More Jr, MD
[2017-05-15] MEDS ORDERED: AMBIEN PO PRN (18:14)
[2017-05-15] MEDS ORDERED: DULCOLAX PR ONE (21:00)
[2017-05-15] MEDS: COUMADIN PO SCH (22:05)
[2017-05-15] MEDS: CRESTOR PO SCH (22:05)
[2017-05-16] MEDS: DILAUDID IM PRN (01:16)
[2017-05-16] MEDS ORDERED: ATIVAN IV ONE (01:40)
[2017-05-16] MEDS: NS 1,000 ML IV SCH ×3 (03:30→15:55)
[2017-05-16] MEDS: LOVENOX SUBQ SCH ×2 (05:01→17:58)
[2017-05-16 06:28] LABS: MANUAL DIFF NEEDED? NO
[2017-05-16 06:35] LABS: BASO% 0.6 % (0.0-0.8); EOS# 0.28 X1000 (0.0-0.7); EOS% 3.5 % (0.0-10.0); HEMATOCRIT 40.3 % (42.0-52.0); HEMOGLOBIN 12.5 g/dL (14.0-18.0); IMM GRAN# 0.03 X1000 (0.0-0.04); IMM GRAN% 0.4 % (0.0-0.5); LYMPH# 0.89 X1000 (1.2-3.4); LYMPH% 11.1 % (20.5-51.1); MCV 96.6 FL (81-99); MONO% 8.7 % (1.7-9.3); MPV 9.6 FL (7.4-10.4); NEUT% 75.7 % (42.2-75.2); PLT 119 X1000 (130-400); RBC 4.17 XMIL (4.7-6.1)
[2017-05-16 06:52] LABS: AGAP 8; BUN 8 mg/dL (8-22); CHLORIDE 109 mmol/L (98-107); COSMO 284; SODIUM 143 mmol/L (136-145); TCO2 26 mmol/L (25-35)
[2017-05-16 06:59] LABS: CALCIUM 6.9 mg/dL (8.8-10.2)
[2017-05-16] MEDS ORDERED: CALCIUM GLUCONATE 2 GM in NS 100 ML IV ONE (09:00)
--- NOTE | 2017-05-16 09:04 | Diag Imaging Result Doc PS360 ---
HEAD W/O CONTRAST - 05/16/2017 INDICATION: ams TECHNIQUE: A CT dose reduction protocol was used. COMPARISON: 05/11/2017 FINDINGS: There is continued decrease in density with increase in the demarcation of the hypodense area at the posterior left temporal lobe. No mass effect or hemorrhage. Stable mild atrophy and chronic microvascular disease. The skull is intact. The sinuses, mastoids, and middle ears are clear. IMPRESSION: Continued evolution of the left cerebral hemisphere infarction with no complications. Electronically signed by Jonh Evans 05/16/2017 9:02 AM
--- NOTE | 2017-05-16 09:21 | PROGRESS NOTE ---
DATE: 05/16/2017 SUBJECTIVE: The patient does not feel well at all. He is a little nauseated. He has some altered mental status. He has been sounding congested according to family, and on exam he does have scattered rales. I do not hear any wheezing at this time. He has had some bloody looking urine as well. He has been on Lovenox. I just started him on warfarin/Coumadin. CBC is essentially normal. He is not anemic with this. OBJECTIVE: Vital Signs: Show temperature 97.8 degrees Fahrenheit, pulse 66 and regular, respirations 16, blood pressure 109/53, oxygen saturations 99% on 2 L of oxygen. HEENT: He is normocephalic. EOMs intact. PERRLA. Throat clear. Lungs: Have some scattered rales. Heart: Regular rate rhythm without murmurs, gallops, or friction rubs. Abdomen: Soft with active bowel sounds. No organomegaly or tenderness. Neurological Examination: Patient is more confused. He is not oriented this morning. ASSESSMENT: 1. Cerebrovascular accident. 2. Possible bronchitis/pneumonia. 3. Hematuria. 4. Coronary artery disease. 5. Status post heart valve replacement. PLAN: Will get CT scan of the head without contrast. We will get a urinalysis with reflux culture. We will get chest x-ray. Also noticed calcium was down to 6.9. It was 9.0 when he came in with an albumin of 4.1. I will repeat his albumin. If it is low that might account for this. If it is not, then he will need some calcium. cc: Paul More Jr, MD
[2017-05-16] MEDS: IMDUR PO SCH (09:26)
[2017-05-16] MEDS: KLOR-CON PO SCH (09:26)
[2017-05-16] MEDS: ASPIRIN EC PO SCH (09:27)
[2017-05-16] MEDS: COREG PO SCH ×2 (09:27→22:00)
[2017-05-16] MEDS: COLACE PO SCH ×2 (09:27→22:00)
[2017-05-16] MEDS: RAPAFLO PO SCH (09:27)
[2017-05-16] MEDS: ROCEPHIN 1 GM/NS 1 GM/50 ML IVPB IV SCH ×2 (09:28→22:00)
[2017-05-16 10:03] LABS: INR 1.04; PROTIME 10.9 Seconds (9.2-11.7)
--- NOTE | 2017-05-16 11:08 | Diag Imaging Result Doc PS360 ---
EXAM: CHEST-1 VIEW INDICATION: rales TECHNIQUE: One view COMPARISON: 05/10/2017 FINDINGS: There is increasing opacity at the right lung base suggesting developing consolidation. There is evidence of prior granulomatous disease. Cardiac silhouette is stable. IMPRESSION: Increasing opacity at the right lung base suggesting developing consolidation. Pneumonia cannot be excluded. Electronically signed by Iban Nair 05/16/2017 11:05 AM
[2017-05-16 13:37] LABS: URINE MICRO REVIEW NEEDED? NO; URINE SOURCE CLEAN CATCH
[2017-05-16 13:43] LABS: BILIRUBIN URINE NEGATIVE (NEGATIVE); BLOOD URINE LARGE (NEGATIVE); COLOR BROWN; GLUCOSE URINE NEGATIVE (NEGATIVE); LEUKOCYTES URINE TRACE (NEGATIVE); NITRITE URINE NEGATIVE (NEGATIVE); PH URINE 5.5; PROTEIN URINE 100 mg/dL (NEGATIVE); SP GRAVITY URINE 1.016; TURBIDITY URINE TURBID (CLEAR); UROBILINOGEN URINE NORMAL (NORMAL)
[2017-05-16 13:44] LABS: UR EPITHELIAL CELLS <10 /HPF (<10); URINE BACTERIA NEGATIVE /HPF; URINE CULTURE NEEDED? YES; URINE RBC TNTC /HPF (<10); URINE WBC <10 /HPF (<10)
[2017-05-16] MEDS: CRESTOR PO SCH (22:00)
[2017-05-16] MEDS: MELATONIN PO SCH (22:00)
[2017-05-16] MEDS: COUMADIN PO SCH (22:00)
[2017-05-17] MEDS: NS 1,000 ML IV SCH ×2 (03:14→06:13)
--- NOTE | 2017-05-17 06:09 | Diag Imaging Result Doc PS360 ---
EXAM: CHEST-PORTABLE HISTORY: pneumonia TECHNIQUE: Portable COMPARISON: 05/16/2017 FINDINGS: The lungs are well expanded. There are increased interstitial markings. These are more pronounced than on the prior exam. Calcified granuloma is found in the right lung base. No pleural effusions identified. No consolidation. IMPRESSION: Increased interstitial markings believed to be pulmonary edema. Interval worsening. There may be an underlying infiltrate in the right base as well. Electronically signed by Benjamin Foley 05/17/2017 6:07 AM
[2017-05-17] MEDS: LOVENOX SUBQ SCH ×2 (06:15→16:46)
[2017-05-17 06:36] LABS: MANUAL DIFF NEEDED? NO
[2017-05-17 06:42] LABS: BASO% 0.5 % (0.0-0.8); EOS# 0.24 X1000 (0.0-0.7); EOS% 2.8 % (0.0-10.0); HEMATOCRIT 36.6 % (42.0-52.0); HEMOGLOBIN 11.3 g/dL (14.0-18.0); IMM GRAN# 0.03 X1000 (0.0-0.04); IMM GRAN% 0.3 % (0.0-0.5); LYMPH# 0.73 X1000 (1.2-3.4); LYMPH% 8.5 % (20.5-51.1); MCH 30.1 PG (27-31); MCHC 30.9 g/dL (33-37); MCV 97.6 FL (81-99); MONO# 0.51 X1000 (0.11-0.59); MONO% 5.9 % (1.7-9.3); PLT 111 X1000 (130-400); RBC 3.75 XMIL (4.7-6.1)
[2017-05-17 07:13] LABS: AGAP 6; ALKALINE PHOSPHATASE 36 U/L (32-122); BUN 7 mg/dL (8-22); CHLORIDE 109 mmol/L (98-107); COSMO 277; GOT 22 U/L (10-34); GPT 23 U/L (10-44); POTASSIUM 3.6 mmol/L (3.5-5.1); SODIUM 140 mmol/L (136-145); TCO2 25 mmol/L (25-35); TOTAL BILIRUBIN 0.47 mg/dL (0.20-1.00); TOTAL PROTEIN 5.4 g/dL (6.3-8.3)
[2017-05-17 07:35] LABS: CALCIUM 6.7 mg/dL (8.8-10.2)
[2017-05-17] MEDS ORDERED: LASIX IV ONE ×2 (08:33→20:26)
[2017-05-17] MEDS ORDERED: ALBUMIN 25% IV ONE (08:35)
[2017-05-17] MEDS ORDERED: RESTORIL PO PRN (09:02)
[2017-05-17] MEDS: ROCEPHIN 1 GM/NS 1 GM/50 ML IVPB IV SCH ×2 (09:03→21:57)
[2017-05-17] MEDS: IMDUR PO SCH (09:03)
[2017-05-17] MEDS ORDERED: MILK OF MAGNESIA PO ONE (09:03)
[2017-05-17] MEDS: COREG PO SCH ×2 (09:03→21:57)
[2017-05-17] MEDS: KLOR-CON PO SCH (09:03)
[2017-05-17] MEDS: RAPAFLO PO SCH (09:03)
[2017-05-17] MEDS: ASPIRIN EC PO SCH (09:03)
[2017-05-17] MEDS: COLACE PO SCH ×3 (09:03→21:57)
[2017-05-17 09:10] LABS: INR 1.13
--- NOTE | 2017-05-17 09:21 | PROGRESS NOTE ---
DATE: 05/17/2017 SUBJECTIVE: The patient is confused this morning, but much more alert than it was yesterday. He did know that it was , but thought it was November and when I asked him about the year he twice it was May. OBJECTIVE: Vital Signs: Blood pressure is 125/48, temperature 97.7 degrees Fahrenheit, respirations 20, pulse 75. HEENT: He is normocephalic. EOMs intact. PERRLA. Throat clear. Lungs: Show rales in the right base. Chest x-ray showed a right lower lobe infiltrate, possible pneumonia, and some pulmonary edema. Heart: Regular rate and rhythm without murmurs, gallops, or friction rubs. Abdomen: Soft. Active bowel sounds. No organomegaly or tenderness. Neurological Examinations: Shows that he has had some confusion. He has had a little weakness in the right upper extremity as noted by neurology, although I cannot really detect any at this time. If there is some, it is slight. LABORATORY: White count is 8630, hemoglobin 11.3. Sodium 140, potassium 3.6, calcium was 6.7. Albumin is down to 3.0. Total protein is 5.4. Family says he has not been eating well. He has not been sleeping and he has been constipated. ASSESSMENT: 1. Cerebrovascular accident. 2. Right lower lobe pneumonia. 3. Hypoalbuminemia. 4. Hypoproteinemia. 5. Hypocalcemia. 6. Hematuria. 7. Sleep disturbance. 8. Dementia. 9. Hematuria. 10. Pulmonary edema, mild. 11. Pneumonia. PLAN: We will stop IV fluids. We will give Lasix. We will continue IV antibiotics. Will give calcium. Will give albumin. We will get him a laxative. We will get him something for sleep. Apparently has had reactions with Ambien in the past. cc: Paul More Jr, MD
[2017-05-17] MEDS ORDERED: CALCIUM GLUCONATE 2 GM in NS 100 ML IV ONE (09:30)
--- NOTE | 2017-05-17 11:38 | PROGRESS NOTE ---
DATE: 05/17/2017 Mr. Freitas is awake and alert. His word-finding seems improved. There is no new focal neurologic finding on limited exam today. ASSESSMENT/PLAN: The family and I discussed the typical situation with baseline brain impairment and significant medical illness, such as his pneumonia, causing decline in mental state. We are optimistic much of that will recover. No new suggestion today. cc: MD Paul Giles III, Jr, MD MTDD
[2017-05-17 21:01] LABS: ALLEN TEST YES; BE 3.5 mmoll (-3.0-3.0); BLOOD TYPE ARTERIAL; DRAW SITE R RADIAL; O2(CT) 18.8 mL/dL (15.0-23.0); PCO2(98.6) 40 mmHg (35-45); PO2(98.6) 87 mmHg (60-100); SAMPLE BLOOD; SAO2 98.6 % (95.0-100.0); THB 13.9 g/dL (11.5-17.4); pH(98.6) 7.45 (7.35-7.45)
[2017-05-17 21:02] LABS: MODALITY CANNULA
[2017-05-17] MEDS: MELATONIN PO SCH (21:57)
[2017-05-17] MEDS: COUMADIN PO SCH (21:57)
[2017-05-17] MEDS: CRESTOR PO SCH (21:57)
[2017-05-17] MEDS: ZOSYN 3.375 GM/NS 3.375 GM/50 ML IVPB IV SCH (22:25)
[2017-05-17] MEDS: DUONEB (A & A) INH SCH (22:57)
[2017-05-18] MEDS: DUONEB (A & A) INH SCH ×6 (03:35→23:10)
[2017-05-18] MEDS: ZOSYN 3.375 GM/NS 3.375 GM/50 ML IVPB IV SCH ×3 (06:11→20:43)
[2017-05-18] MEDS: LOVENOX SUBQ SCH ×2 (06:11→20:43)
[2017-05-18 06:38] LABS: MANUAL DIFF NEEDED? NO
--- NOTE | 2017-05-18 06:38 | CONSULTATION ---
DATE OF CONSULTATION: 05/17/2017 REQUESTING PHYSICIAN: Paul More Jr, MD REASON FOR CONSULTATION: Pneumonia, shortness of breath, respiratory failure. HISTORY OF PRESENT ILLNESS: Mr. Freitas is a 71-year-old white male, with a greater than 40 pack year history for tobacco, COPD, coronary artery disease, aortic valve replacement, ischemic cardiomyopathy, who had his blood thinner discontinued and underwent a biopsy of the prostate on 05/08/2017. He presented to the emergency room 05/10/2017 with altered mental status. CT scan of the brain revealed an area of subacute stroke in the left temporooccipital lobes. This area continued to evolve over subsequent CT scans. He underwent transesophageal echocardiogram which revealed an ejection fraction of 35% to 40%, aortic mechanical aortic valve in appropriate position. No evidence of thrombus. Saline study revealed no evidence of a patent foramen. The patient has had increased work of breathing today along with an oxygen saturation of 80% earlier today. He has had significant increase in peripheral edema. Chest x-ray was performed, which revealed increased vascular congestion along with possible infiltrate at the right base. PAST MEDICAL HISTORY/PROBLEM LIST: 1. A 40 pack year history for tobacco, with COPD. 2. Coronary artery disease, status post coronary artery bypass grafting in 1998. 3. Status post mechanical aortic valve replacement. 4. Dementia. 5. Hypertension. 6. Dyslipidemia. 7. BPH. SOCIAL HISTORY: No alcohol use noted. Prior tobacco use as per above. FAMILY HISTORY: Notable for lung cancer. REVIEW OF SYSTEMS: Limited. The patient has some difficulty finding words. PHYSICAL EXAMINATION: General: Reveals a well-developed, well-nourished, white male, with truncal obesity. The patient is sitting in chair. Vital Signs: Blood pressure 114/84, heart rate 97, respiration rate 26, oxygen saturation 96% on 2 L per nasal cannula. HEENT: Pupils are equal and reactive. Oropharynx is clear. Neck: Supple. Chest: Reveals prolonged expiratory phase with expiratory wheezing. Cardiac: Regular rate. Normal S1, normal S2. Clear prominent click can be heard over the aortic area. Abdomen: Obese and soft. Back: Reveals 1+ presacral edema. Extremities: Revealed 2+ ankle and pretibial edema. LABORATORIES: Chest x-ray reveals increased interstitial markings/vascular prominence with possible infiltrate at the right base. White blood count 8.6, hemoglobin 11.3, platelet count 111,000. Chemistry: Sodium 140, potassium 3.6, chloride 109, BUN 7, creatinine 0.8. IMPRESSION: A 71-year-old with a subacute stroke, hypoxemic respiratory failure, pulmonary edema, possible pneumonia at the right base. The patient does not have audible rhonchi and therefore, I think, a ongoing aspiration event is less likely but will remain in the differential. RECOMMENDATIONS: 1. Diuretic attempt this evening, although it may be limited given his marginal blood pressure. 2. Change antibiotics to cover nosocomial pathogens and expand gram-negative coverage. 3. Add bronchodilators. 4. Check arterial blood gas to see if he might benefit from CPAP. 5. Additional recommendations pending hospital course. cc: MD Paul Kumar Jr, MD
[2017-05-18 07:09] LABS: BASO% 0.4 % (0.0-0.8); EOS# 0.16 X1000 (0.0-0.7); EOS% 1.5 % (0.0-10.0); HEMATOCRIT 44.8 % (42.0-52.0); HEMOGLOBIN 14.3 g/dL (14.0-18.0); IMM GRAN# 0.04 X1000 (0.0-0.04); IMM GRAN% 0.4 % (0.0-0.5); LYMPH# 1.01 X1000 (1.2-3.4); LYMPH% 9.4 % (20.5-51.1); MCH 30.4 PG (27-31); MCHC 31.9 g/dL (33-37); MCV 95.1 FL (81-99); MONO# 0.81 X1000 (0.11-0.59); MONO% 7.5 % (1.7-9.3); MPV 9.9 FL (7.4-10.4); NEUT% 80.8 % (42.2-75.2); PLT 134 X1000 (130-400); RBC 4.71 XMIL (4.7-6.1)
--- NOTE | 2017-05-18 07:09 | Diag Imaging Result Doc PS360 ---
EXAM: KUB ABDOMEN HISTORY: distention TECHNIQUE: Portable supine AP COMPARISON: 09/07/2016 FINDINGS: The upper abdomen is not included on the exam. Air distends the cecum. No other evidence of bowel distention. No abnormal calcifications in the pelvis except for atherosclerosis. IMPRESSION: No definite abnormality. Electronically signed by Benjamin Foley 05/18/2017 7:06 AM
--- NOTE | 2017-05-18 07:11 | Diag Imaging Result Doc PS360 ---
EXAM: CHEST-PORTABLE HISTORY: pulm edema and pneumonia TECHNIQUE: Portable upright AP COMPARISON: 05/17/2017 FINDINGS: Sternal wires are present. Decreased pulmonary edema compared to prior exam. Increased markings in the lung bases remain. Questionable trace left pleural fluid. The apices are clear. There is a granuloma in the lower right lung. IMPRESSION: Overall interval improvement with decreased pulmonary edema. Electronically signed by Benjamin Foley 05/18/2017 7:08 AM
[2017-05-18 07:18] LABS: MAGNESIUM 1.9 mg/dL (1.5-2.7)
[2017-05-18 07:30] LABS: CALCIUM 8.8 mg/dL (8.8-10.2); POTASSIUM 3.5 mmol/L (3.5-5.1); TOTAL BILIRUBIN 0.63 mg/dL (0.20-1.00); TOTAL PROTEIN 6.7 g/dL (6.3-8.3)
--- NOTE | 2017-05-18 09:13 | PROGRESS NOTE ---
DATE: 05/18/2017 SUBJECTIVE: The patient is confused this morning. He knows he is in the hospital. Does not know what day or month it is or what year it is. Family says he is still not sleeping well. I had given him a prescription for Prosom which was on formulary for temazepam or Restoril at 15 mg. I am going to increase this to 30 mg. Again, he was up coughing a good bit of last night as well. I appreciate Dr. Mckeon seeing the patient for his pneumonia, and he changed his antibiotics to Zosyn. His last chest x-ray showed some clearing of the pulmonary edema, but right lower infiltrate is still present. OBJECTIVE: Vital Signs: Blood pressure 115/79, respirations 19, pulse 95 and regular, temperature 98 degrees Fahrenheit. Oxygen saturation is 95%. HEENT: Normocephalic. EOM's intact. PERRLA. Throat clear. Lungs: Sound clear to auscultation and percussion without rhonchi, rales, or wheezes at this time. He has been started on breathing treatments as well. Heart: Regular rate and rhythm without murmurs, gallops, or friction rubs. Abdomen: Soft with active bowel sounds. No organomegaly or tenderness. Neurological exam: Cranial nerves 2-12 intact grossly. Sensory and motor intact. Reflexes 1+ all. He is confused. LABORATORY: Shows a white count 10,750, hemoglobin 14.3, hematocrit 44.8. Potassium 3.5, sodium 143, creatinine 1.2. His calcium is up from 6.7 to 8.8 after I had given him supplemental calcium, and his albumin is up from 3 to 4.0 after I gave him albumin. ASSESSMENT: 1. Cerebrovascular accident. 2. Right lower lobe pneumonia. 3. Hypoalbuminemia. 4. Hypoproteinemia. 5. Hypocalcemia. 6. Hematuria. 7. Sleep disturbance. 8. Dementia. 9. Pulmonary edema, mild and improved. PLAN: Continue care. cc: Paul More Jr, MD
[2017-05-18 09:37] LABS: INR 1.14; PROTIME 12.1 Seconds (9.2-11.7)
[2017-05-18] MEDS: RAPAFLO PO SCH (09:47)
[2017-05-18] MEDS: ASPIRIN EC PO SCH (09:47)
[2017-05-18] MEDS: IMDUR PO SCH (09:47)
[2017-05-18] MEDS: KLOR-CON PO SCH (09:47)
[2017-05-18] MEDS: COLACE PO SCH ×3 (09:47→20:43)
[2017-05-18] MEDS: COREG PO SCH ×2 (09:48→20:43)
--- NOTE | 2017-05-18 13:18 | PROGRESS NOTE ---
DATE: 05/18/2017 Mr. Freitas is much brighter today, more alert, more attentive, more conversant. He had a little bit of trouble following commands which required right/left distinction and digit distinction, but he did well with bedside testing for naming. Son at the bedside reports patient seems much brighter today compared to yesterday. I do not have any new suggestion today from a neurologic standpoint. Thanks for allowing me to follow Mr. Freitas. cc: MD Paul Giles III, Jr, MD
[2017-05-18] MEDS: COUMADIN PO SCH (20:43)
[2017-05-18] MEDS: CRESTOR PO SCH (20:43)
[2017-05-18] MEDS: MELATONIN PO SCH (20:44)
[2017-05-19] MEDS: LASIX IV ONE ×2 (00:02→00:40)
[2017-05-19] MEDS: DILAUDID IM PRN ×2 (00:41→08:54)
[2017-05-19] MEDS: ZOSYN 3.375 GM/NS 3.375 GM/50 ML IVPB IV SCH ×4 (02:41→21:03)
[2017-05-19] MEDS: DUONEB (A & A) INH SCH ×4 (03:19→15:37)
[2017-05-19] MEDS ORDERED: LASIX IV ONE ×2 (06:00→08:06)
[2017-05-19 06:43] LABS: MANUAL DIFF NEEDED? NO
[2017-05-19 06:48] LABS: BASO% 0.8 % (0.0-0.8); EOS# 0.27 X1000 (0.0-0.7); EOS% 3.5 % (0.0-10.0); HEMATOCRIT 42.6 % (42.0-52.0); HEMOGLOBIN 13.4 g/dL (14.0-18.0); IMM GRAN# 0.03 X1000 (0.0-0.04); IMM GRAN% 0.4 % (0.0-0.5); LYMPH# 0.85 X1000 (1.2-3.4); LYMPH% 11.1 % (20.5-51.1); MCHC 31.5 g/dL (33-37); MCV 95.3 FL (81-99); MONO# 0.57 X1000 (0.11-0.59); MONO% 7.5 % (1.7-9.3); NEUT% 76.7 % (42.2-75.2); PLT 133 X1000 (130-400); RBC 4.47 XMIL (4.7-6.1)
[2017-05-19 07:01] LABS: ALBUMIN 3.5 g/dL (3.5-5.0); POTASSIUM 3.7 mmol/L (3.5-5.1); TOTAL BILIRUBIN 0.65 mg/dL (0.20-1.00); TOTAL PROTEIN 6.1 g/dL (6.3-8.3)
[2017-05-19] MEDS: ASPIRIN EC PO SCH (08:56)
[2017-05-19] MEDS: COLACE PO SCH ×3 (08:57→21:03)
[2017-05-19] MEDS: RAPAFLO PO SCH (08:57)
[2017-05-19] MEDS: KLOR-CON PO SCH (08:58)
[2017-05-19] MEDS: LOVENOX SUBQ SCH ×2 (08:58→21:04)
[2017-05-19] MEDS: IMDUR PO SCH (08:58)
[2017-05-19] MEDS: COREG PO SCH ×2 (08:58→21:03)
[2017-05-19 09:35] LABS: INR 1.19; PROTIME 12.6 Seconds (9.2-11.7)
--- NOTE | 2017-05-19 10:56 | Diag Imaging Result Doc PS360 ---
CHEST-PORTABLE - 05/19/2017 INDICATION: dyspnea TECHNIQUE: COMPARISON: 05/18/2017 FINDINGS: There is slight worsening ill-defined predominantly interstitial infiltrates bilaterally with central and basilar predominance. Heart size remains top normal. No pneumothorax. Probable small left pleural effusion. IMPRESSION: Slight worsening in the central infiltrates compatible with pneumonia or pulmonary edema. There is also COPD. Electronically signed by Jonh Evans 05/19/2017 10:53 AM
--- NOTE | 2017-05-19 11:48 | PROGRESS NOTE ---
DATE: 05/19/2017 SUBJECTIVE: Patient is still confused. He is oriented to month and to place, but does not know what year it is. He is more alert, but is slow getting around, which he had problems with before he came in the hospital. OBJECTIVE: Vital Signs: Blood pressure is 108/53, respirations 20, pulse 79, temperature 98.3 degrees Fahrenheit. HEENT: Normocephalic. EOMs intact. PERRLA. Throat clear. Lungs: Sound fairly clear to auscultation. He has a right lower lobe infiltrate on chest x-ray. Chest x-ray today is pending. Heart: Regular rate and rhythm, without murmurs, gallops, or friction rubs. Abdomen: Soft. Active bowel sounds. No organomegaly or tenderness. Neurologic: Intact grossly. ASSESSMENT: 1. Cerebrovascular accident. 2. Right lower lobe pneumonia. 3. Dementia. 4. Hypokalemia. Calcium has dropped back down to 8.0. Albumin is low-normal after giving him albumin. I will start him on some oral calcium. PLAN: Continue treatment of pneumonia. Watch course of CVA. It should be noted that the patient also has a mechanical heart valve. INR is 1.19. We have started him back on Coumadin. He usually alternates 3 mg with 1.5 mg every night. I have him right now on 3 mg every night until he builds up. Continue care. cc: Paul More Jr, MD
[2017-05-19] MEDS: TUMS PO SCH ×2 (14:09→18:32)
[2017-05-19] MEDS ORDERED: ATIVAN IV ONE (16:15)
[2017-05-19 16:47] LABS: MANUAL DIFF NEEDED? NO
[2017-05-19 16:49] LABS: BASO% 0.5 % (0.0-0.8); EOS# 0.17 X1000 (0.0-0.7); EOS% 1.8 % (0.0-10.0); HEMATOCRIT 43.2 % (42.0-52.0); HEMOGLOBIN 13.6 g/dL (14.0-18.0); LYMPH# 0.82 X1000 (1.2-3.4); LYMPH% 8.7 % (20.5-51.1); MCH 30.5 PG (27-31); MCHC 31.5 g/dL (33-37); MCV 96.9 FL (81-99); MONO# 0.75 X1000 (0.11-0.59); MONO% 7.9 % (1.7-9.3); MPV 9.6 FL (7.4-10.4); NEUT% 81.1 % (42.2-75.2); PLT 139 X1000 (130-400); RBC 4.46 XMIL (4.7-6.1)
[2017-05-19 17:19] LABS: ALBUMIN 3.8 g/dL (3.5-5.0); POTASSIUM 3.6 mmol/L (3.5-5.1); TOTAL BILIRUBIN 0.72 mg/dL (0.20-1.00); TOTAL PROTEIN 6.5 g/dL (6.3-8.3)
[2017-05-19 17:29] LABS: ALLEN TEST YES; BE 6.4 mmoll (-3.0-3.0); BLOOD TYPE ARTERIAL; DRAW SITE R RADIAL; METHB 1.2 % (0.0-1.5); O2(CT) 17.7 mL/dL (15.0-23.0); PCO2(98.6) 36 mmHg (35-45); PO2(98.6) 55 mmHg (60-100); SAMPLE BLOOD; SAO2 93.8 % (95.0-100.0); THB 13.9 g/dL (11.5-17.4); pH(98.6) 7.52 (7.35-7.45)
[2017-05-19 17:31] LABS: MODALITY CANNULA
[2017-05-19 17:46] LABS: CK INDEX 1.6 (0.0-2.5); CK-MB 6.14 ng/mL (0.0-5.0)
[2017-05-19] MEDS: MELATONIN PO SCH (21:03)
[2017-05-19] MEDS: RESTORIL PO PRN (21:03)
[2017-05-19] MEDS: CRESTOR PO SCH (21:03)
[2017-05-19] MEDS: COUMADIN PO SCH (21:04)
[2017-05-20] MEDS ORDERED: STERILE WATER INJ. INJ ONE (02:02)
[2017-05-20] MEDS ORDERED: GEODON IM ONE (02:02)
[2017-05-20] MEDS: ZOSYN 3.375 GM/NS 3.375 GM/50 ML IVPB IV SCH ×4 (02:58→21:54)
[2017-05-20] MEDS: DUONEB (A & A) INH SCH ×9 (03:21→22:30)
[2017-05-20] MEDS ORDERED: LASIX IV ONE (06:00)
[2017-05-20 07:03] LABS: INR 1.28; PROTIME 13.6 Seconds (9.2-11.7)
[2017-05-20 07:31] LABS: CALCIUM 8.4 mg/dL (8.8-10.2); MAGNESIUM 2.1 mg/dL (1.5-2.7); POTASSIUM 4.8 mmol/L (3.5-5.1)
[2017-05-20] MEDS: DILAUDID IM PRN ×2 (07:42→21:55)
[2017-05-20 08:19] LABS: URINE CULTURE NEEDED? NO; URINE MICRO REVIEW NEEDED? NO; URINE SOURCE CATH
[2017-05-20] MEDS: ASPIRIN EC PO SCH (08:21)
[2017-05-20] MEDS: RAPAFLO PO SCH (08:21)
[2017-05-20] MEDS: COREG PO SCH ×2 (08:21→21:55)
[2017-05-20] MEDS: IMDUR PO SCH (08:21)
[2017-05-20] MEDS: KLOR-CON PO SCH (08:21)
[2017-05-20] MEDS: COLACE PO SCH ×2 (08:21→21:55)
[2017-05-20] MEDS: TUMS PO SCH ×3 (08:21→18:09)
[2017-05-20] MEDS: LOVENOX SUBQ SCH ×2 (08:21→21:55)
[2017-05-20 08:24] LABS: BILIRUBIN URINE NEGATIVE (NEGATIVE); BLOOD URINE MODERATE (NEGATIVE); COLOR STRAW; GLUCOSE URINE NEGATIVE (NEGATIVE); LEUKOCYTES URINE NEGATIVE (NEGATIVE); NITRITE URINE NEGATIVE (NEGATIVE); PROTEIN URINE NEGATIVE (NEGATIVE); SP GRAVITY URINE 1.004; TURBIDITY URINE CLEAR (CLEAR); UROBILINOGEN URINE NORMAL (NORMAL)
[2017-05-20 08:25] LABS: UR EPITHELIAL CELLS <10 /HPF (<10); URINE BACTERIA NEGATIVE /HPF; URINE RBC 20-40 /HPF (<10); URINE WBC <10 /HPF (<10)
--- NOTE | 2017-05-20 19:02 | PROGRESS NOTE ---
DATE: 05/20/2017 SUBJECTIVE: Mr. Freitas is a 71-year-old white gentleman, admitted with acute mental confusion. The patient does have complicated hospital course. Lately, the patient does have an episode of confusion, agitation, difficult to manage, requiring some sedation. The patient denied any high- grade fever or chills. No unusual cough or expectoration. No nausea or vomiting. Oral intake variable. Admission history and physical noted. The patient had Neurology and Cardiology consult done. Also he had pulmonary consult done with Dr. Mckeon. PAST MEDICAL HISTORY: Significant for dementia, BPH, prosthetic heart valve, coronary artery disease, hypertension, hyperlipidemia, and chronic obstructive pulmonary disease. OBJECTIVE: Vital Signs: His vital signs noted. Neck: Supple. No JVD. Lungs: Bibasilar crepitations. Heart: S1 and S2 heard. Metallic heart sounds. Abdomen: Soft, globular. Bowel sounds present. Extremities: No cyanosis, clubbing. Minimal swelling around the ankle. MEAT AND POULTRY INSPECTOR: Alert, awake, able to move all 4 limbs, but uncooperative for detailed exam. CONSIDERATION: Patient does have: 1. Right middle lobe pneumonia. 2. Chronic obstructive pulmonary disease . 3. Cerebrovascular accident. 4. Confusion. 5. Benign prostatic hypertrophy. 6. Dementia. 7. Prosthetic heart valve with subtherapeutic prothrombin time. 8. Coronary artery disease. 9. Hyperlipidemia. LAB DATA: Done today, PT/INR 1.28. Electrolytes were fairly benign. BUN was 17, creatinine 1.3. The patient did have large amount of residual urine volume and we put Stroud catheter in. We will continue rest of the treatment. Close observation. The patient is on therapeutic dose of Lovenox. Also IV antibiotics and Coumadin. cc: MD Paul Doan Jr, MD
[2017-05-20] MEDS: CRESTOR PO SCH (21:55)
[2017-05-20] MEDS: MELATONIN PO SCH (21:55)
[2017-05-20] MEDS: COUMADIN PO SCH (21:55)
[2017-05-21] MEDS: DUONEB (A & A) INH SCH ×6 (03:28→22:50)
[2017-05-21] MEDS: ZOSYN 3.375 GM/NS 3.375 GM/50 ML IVPB IV SCH ×4 (04:35→21:46)
[2017-05-21 07:11] LABS: INR 1.63; PROTIME 17.6 Seconds (9.2-11.7)
[2017-05-21] MEDS: KLOR-CON PO SCH (08:50)
[2017-05-21] MEDS: COREG PO SCH ×2 (08:50→21:45)
[2017-05-21] MEDS: ASPIRIN EC PO SCH (08:50)
[2017-05-21] MEDS: RAPAFLO PO SCH (08:50)
[2017-05-21] MEDS: LOVENOX SUBQ SCH (08:50)
[2017-05-21] MEDS: IMDUR PO SCH (08:50)
[2017-05-21] MEDS: COLACE PO SCH ×2 (08:50→21:45)
[2017-05-21] MEDS: TUMS PO SCH ×3 (08:50→16:45)
[2017-05-21] MEDS: DILAUDID IM PRN ×2 (10:58→14:55)
[2017-05-21] MEDS ORDERED: HALDOL IV PRN (18:01)
[2017-05-21] MEDS ORDERED: LASIX IV ONE (18:31)
[2017-05-21 18:50] LABS: ALLEN TEST YES; BE 2.9 mmoll (-3.0-3.0); BLOOD TYPE ARTERIAL; DRAW SITE R RADIAL; METHB 1.3 % (0.0-1.5); PCO2(98.6) 46 mmHg (35-45); SAMPLE BLOOD; SAO2 74.9 % (95.0-100.0); THB 14.8 g/dL (11.5-17.4)
[2017-05-21 18:51] LABS: PO2(98.6) 38 mmHg (60-100)
[2017-05-21 18:52] LABS: MODALITY CANNULA
--- NOTE | 2017-05-21 18:57 | PROGRESS NOTE ---
DATE: 05/21/2017 SUBJECTIVE: Detailed progress note while Dr. More is out of town. This is a 1st time seeing the patient. The patient is out of bed, sitting in the chair. REVIEW OF SYSTEMS: HEENT: No headache. No vision problem. No earache. No sore throat. Cardiopulmonary: No chest pain. No shortness of breath at rest on oxygen. No PND. No orthopnea. No swelling of feet. GI: No nausea, vomiting, abdominal pain. Stroud catheter was placed. Extremities: No swelling of feet. Neurologic: No focal symptoms or weakness. PAST MEDICAL HISTORY: BPH, coronary artery disease, hypertension, hyperlipidemia, COPD, right lower lobe pneumonia/pulmonary edema, mechanical prosthetic valve at aortic area with an ejection fraction 35 to 40%, hepatics cyst, kidney stone in the left kidney. MEDICATIONS: Warfarin 3 mg at bedtime, Restoril 30 mg, Rapaflo 8 mg, Crestor 10 mg, potassium 40 mEq, Zosyn 3.375 q.6 hours, melatonin, isosorbide 30 mg daily, Lovenox 80 mg subcutaneous q.12, Colace 100 p.o. b.i.d., Coreg 6.25 p.o. b.i.d., aspirin 80 mg daily. OBJECTIVE: Vital signs: On examination, his temp is 98 degrees, pulse is 83, respirations 16, blood pressure is 105/57, nasal cannula 94%. I's and O's: Negative 1.5 mL. HEENT: Atraumatic, normocephalic. Pupils equal, react to light. Neck: Supple. Chest: Decreased rales in the right base. Cardiovascular: Heart sounds are very distant. S3 is loud. Abdomen: Belly is soft, nontender. Good bowel sounds. Stroud catheter in place. Extremities: No peripheral edema or cyanosis. Neurological: No deficits. INVESTIGATIONS: PT 17, INR 1.6. SMA 7: Creatinine is 1.3. Urinalysis is clear. Blood cultures were negative. Urine cultures were negative. ASSESSMENT AND PLAN: This is a 71-year-old white male admitted to the hospital with these following problems. 1. Altered mental status, slowly improving. Patient was seen by Dr. Casey. He had a CVA subacute infarct left temporooccipital lobes. Carotid Doppler was negative. 2. Chronic systolic heart failure with ejection fraction 35 to 40%. Improving pulmonary edema. Status post TOBI. Prosthetic aortic valve. Has been on Coreg 6.25 p.o. b.i.d., isosorbide 30 mg daily. Consider using CHANO inhibitors. 3. Benign prostatic hypertrophy. On Rapaflo and Stroud catheter. 4. Kidney stone on the left side. Stable. 5. Hyperlipidemia. On Crestor. 6. Status post aortic prosthetic valve. INR is subtherapeutic. Continue on Lovenox and warfarin. Will discontinue Lovenox when the INR gets to 3. 7. Right lower lobe pneumonia. IV antibiotics with Zosyn. 8. Discussed with the patient and the level of documentation is 35 minutes. Follow up on daily PT/INR. cc: MD Paul Lenz Jr, MD
[2017-05-21 21:27] LABS: MANUAL DIFF NEEDED? NO
[2017-05-21 21:30] LABS: BASO% 0.5 % (0.0-0.8); EOS# 0.13 X1000 (0.0-0.7); EOS% 1.3 % (0.0-10.0); HEMATOCRIT 44.5 % (42.0-52.0); IMM GRAN# 0.03 X1000 (0.0-0.04); IMM GRAN% 0.3 % (0.0-0.5); LYMPH# 0.78 X1000 (1.2-3.4); LYMPH% 7.6 % (20.5-51.1); MCH 30.2 PG (27-31); MCHC 31.5 g/dL (33-37); MCV 96.1 FL (81-99); MONO# 0.68 X1000 (0.11-0.59); MONO% 6.7 % (1.7-9.3); MPV 9.7 FL (7.4-10.4); NEUT% 83.6 % (42.2-75.2); PLT 163 X1000 (130-400); RBC 4.63 XMIL (4.7-6.1)
[2017-05-21] MEDS: RESTORIL PO PRN (21:45)
[2017-05-21] MEDS: CRESTOR PO SCH (21:45)
[2017-05-21] MEDS: SEROQUEL PO SCH (21:45)
[2017-05-21 21:56] LABS: ALBUMIN 3.8 g/dL (3.5-5.0); CALCIUM 9.3 mg/dL (8.8-10.2); POTASSIUM 3.8 mmol/L (3.5-5.1); TOTAL BILIRUBIN 0.84 mg/dL (0.20-1.00); TOTAL PROTEIN 6.2 g/dL (6.3-8.3)
[2017-05-21 22:11] LABS: CK INDEX 2.3 (0.0-2.5); CK-MB 6.18 ng/mL (0.0-5.0)
[2017-05-21] MEDS: COUMADIN PO SCH (22:39)
[2017-05-21] MEDS ORDERED: DOPAMINE 400 MG/D5W 400 MG/500 ML IV.SOLN IV SCH (23:32)
[2017-05-22] MEDS ORDERED: ATIVAN ONE (01:45)
[2017-05-22] MEDS: ATIVAN IV PRN ×4 (03:25→16:58)
[2017-05-22] MEDS: DUONEB (A & A) INH SCH ×6 (03:25→22:38)
[2017-05-22 04:25] LABS: ALLEN TEST YES; BE 5.6 mmoll (-3.0-3.0); BLOOD TYPE ARTERIAL; DRAW SITE R RADIAL; METHB 0.9 % (0.0-1.5); MODALITY BI PAP; O2(CT) 17.5 mL/dL (15.0-23.0); PCO2(98.6) 45 mmHg (35-45); PO2(98.6) 149 mmHg (60-100); SAMPLE BLOOD; SAO2 99.8 % (95.0-100.0); THB 12.6 g/dL (11.5-17.4); pH(98.6) 7.44 (7.35-7.45)
[2017-05-22] MEDS: ZOSYN 3.375 GM/NS 3.375 GM/50 ML IVPB IV SCH ×4 (04:36→21:01)
--- NOTE | 2017-05-22 06:08 | EKG Report ---
Test Performed on : 05/22/2017 05:16:56 AM Test Reason : cp Blood Pressure : / mmHG Vent. Rate : 105 BPM Atrial Rate : 081 BPM P-R Int : 144 ms QRS Dur : 086 ms QT Int : 398 ms P-R-T Axes : 065 006 064 degrees QTc Int : 526 ms Undetermined rhythm Possible Inferior infarct (cited on or before 12-APR-2012) Cannot rule out Anterior infarct (cited on or before 12-APR-2012) Prolonged QT Abnormal ECG When compared with ECG of 21-MAY-2017 18:32, (Unconfirmed) Current undetermined rhythm precludes rhythm comparison, needs review Nonspecific T wave abnormality, worse in Inferior leads Nonspecific T wave abnormality now evident in Lateral leads Confirmed by Donny CHA, Jg Doan ([id number]) on 05/22/2017 2:17:04 PM
--- NOTE | 2017-05-22 06:13 | EKG Report ---
Test Performed on : 05/21/2017 6:32:43 PM Test Reason : No order in Notifo Blood Pressure : / mmHG Vent. Rate : 103 BPM Atrial Rate : 051 BPM P-R Int : 146 ms QRS Dur : 086 ms QT Int : 402 ms P-R-T Axes : 049 -16 015 degrees QTc Int : 526 ms Undetermined rhythm Possible Inferior infarct (cited on or before 12-APR-2012) Cannot rule out Anteroseptal infarct , age undetermined Prolonged QT Abnormal ECG When compared with ECG of 10-MAY-2017 15:02, Current undetermined rhythm precludes rhythm comparison, needs review QRS axis shifted right Serial changes of Inferior infarct present Confirmed by Donny CHA, Jg Doan ([id number]) on 05/22/2017 2:16:54 PM
[2017-05-22] MEDS ORDERED: MAGNESIUM SULFATE 2 GM/S.W.I. 2 GM/50 ML IVPB IV ONE (07:41)
--- NOTE | 2017-05-22 07:45 | Diag Imaging Result Doc PS360 ---
CHEST-PORTABLE - 05/21/2017 INDICATION: sob TECHNIQUE: COMPARISON: 05/19/2017 FINDINGS: Stable mild cardiomegaly. Stable sternotomy wires. Stable hazy central and bibasilar interstitial infiltrates suggesting edema. No pneumothorax or large effusion. Lungs remain hyperexpanded. IMPRESSION: No change from prior. Electronically signed by Jonh Evans 05/22/2017 7:43 AM
[2017-05-22 08:35] LABS: HEMATOCRIT 40.6 % (42.0-52.0); HEMOGLOBIN 12.6 g/dL (14.0-18.0); MCH 30.1 PG (27-31); MCV 97.1 FL (81-99); MPV 10.4 FL (7.4-10.4); RBC 4.18 XMIL (4.7-6.1)
[2017-05-22] MEDS: COLACE PO SCH ×2 (08:58→21:01)
[2017-05-22 08:59] LABS: ALBUMIN 3.2 g/dL (3.5-5.0); CALCIUM 8.9 mg/dL (8.8-10.2); INR 1.95; POTASSIUM 3.6 mmol/L (3.5-5.1); PROTIME 21.4 Seconds (9.2-11.7); TOTAL BILIRUBIN 0.69 mg/dL (0.20-1.00); TOTAL PROTEIN 5.9 g/dL (6.3-8.3)
[2017-05-22] MEDS: TUMS PO SCH ×3 (08:59→16:02)
[2017-05-22] MEDS ORDERED: PRINIVIL PO SCH (09:00)
[2017-05-22] MEDS: COREG PO SCH ×2 (09:13→20:59)
[2017-05-22] MEDS: IMDUR PO SCH (09:13)
[2017-05-22] MEDS: ASPIRIN EC PO SCH (09:13)
[2017-05-22 09:25] LABS: CK INDEX 1.9 (0.0-2.5); CK-MB 5.37 ng/mL (0.0-5.0)
[2017-05-22] MEDS: RAPAFLO PO SCH (09:25)
[2017-05-22] MEDS ORDERED: LASIX IV ONE (12:58)
--- NOTE | 2017-05-22 14:33 | Diag Imaging Result Doc PS360 ---
CHEST-2 VIEWS - 05/22/2017 INDICATION: hypoxia TECHNIQUE: COMPARISON: 05/21/2017 FINDINGS: Stable cardiomegaly and sternotomy wires. There is slight worsening in the diffuse bilateral interstitial infiltrates compatible with pulmonary edema. There are clearly visible curly B lines at this point. IMPRESSION: Worsening interstitial infiltrates compatible with pulmonary edema. Electronically signed by Jonh Evans 05/22/2017 2:30 PM
--- NOTE | 2017-05-22 14:55 | Diag Imaging Result Doc PS360 ---
EXAM: HEAD W/O CONTRAST HISTORY: fluctuation of mental status and CVA TECHNIQUE: CT of the head without contrast with dose reduction (clarity.) COMMENT: There is generalized cerebral atrophy. There is early encephalomalacia in the posterior left temporal lobe. This has evolved to some degree since the previous CT examination of 05/16/2017. There is no evidence of bleed or mass effect. There are no acute bony abnormalities. IMPRESSION: Subacute infarction in the left temporal lobe. The degree of edema which was present on the previous study of 05/16/2017 has diminished. No additional acute findings. Electronically signed by Quinton Glynn 05/22/2017 2:53 PM
[2017-05-22 15:12] LABS: CK-MB 4.8 ng/mL (0.0-5.0)
--- NOTE | 2017-05-22 18:43 | CONSULTATION ---
DATE OF CONSULTATION: 05/22/2017 HISTORY OF PRESENT ILLNESS: This is a critical care consult. Starting last night, I was software applications engineer. Covering for Dr. More. Interval history was reported the patient was agitated at the bedside. He was trying to get out of the bed and restless. The patient was given 2 mg of Haldol. He was dozing off. Dr. Mckeon was examining the patient, he woke up, and after a few minutes, the patient complained of dyspnea at rest. He had significant orthopnea and PND. No swelling of feet. He was very hypoxic on 4 L. Code team was called in. Dr. Mckeon and myself were there at the bedside for more than an hour. The patient was given IV Lasix followed by 2 g of magnesium sulfate. Chest x-ray showed mild cephalization consistent with heart failure. EKG showed normal sinus with frequent PVCs. QT intervals around 520 ms. I did request 2 g of Mag sulfate. He was placed on BiPAP machine and transferred to the ICU in a guarded condition. REVIEW OF SYSTEMS: Complains of shortness of breath, significant PND, orthopnea. No swelling. The patient was moved to the ICU 9. EXAMINATION: Vital Signs: He is afebrile, tachycardic with PVCs. Blood pressure is 107/77. He is on BiPAP on 80%. He was comfortable after the Lasix and I's and O's were negative by 1.57 L. General: Throughout the night, he was agitated, requiring restraints and some Ativan. Blood pressure one time dropped to 70. He was asymptomatic. Stroud was placed. Chest: Very poor air entry. Heart: Distant heart sounds. Abdomen: Belly is soft, nontender. Extremities: No significant edema noted. INVESTIGATIONS: White cell count 11, hematocrit 40, platelets 165. PT 21. INR 1.95. ABG on BiPAP significant improvement. PH is 7.44, pCO2 of 45, pO2 of 149, bicarb 29, 80%. SMA-7: Sodium 143, potassium 3.6, chloride 100, BUN 22, creatinine 1.2 and glucose 78. CK index was negative. Troponin was negative. ProBNP 15,000. Chest x-ray, mild CHF. ASSESSMENT AND PLAN: 1. Acute respiratory failure due to decompensated systolic dysfunction. IV Lasix and BiPAP support. 2. Abnormal EKG with prolonged QT interval. Magnesium sulfate as needed. Consult with Dr. Yadav. 3. Status post aortic valve replacement, prosthetic. INR is 1.9. Continue on Lovenox until the warfarin Coumadin level is 2-3. 4. Aspiration bronchitis on IV Zosyn. 5. Cerebrovascular accident on the left side from the thromboembolic stroke and continue on warfarin. 6. Congestive heart failure. Continue on Coreg and lisinopril. 7. Agitation. Seroquel and Ativan as needed. Plan of care was discussed with the son last night as well as in the morning. LEVEL OF DOCUMENTATION: Is about 60 minutes, critical care consult. cc: MD Paul Lenz Jr, MD
[2017-05-22] MEDS: MORPHINE IV PRN (19:40)
--- NOTE | 2017-05-22 19:42 | ECHO REPORT ---
ORDER DATE: 05/22/2017 INTERPRETING PHYSICIAN: Dr. Aldana REQUESTING PHYSICIAN: CLINICAL INDICATIONS: A 71-year-old male with prosthetic aortic valve, mental status changes, stroke, systolic heart failure. M-MODE MEASUREMENTS: Right ventricle: cm. Left ventricle end diastole: 5.7 cm. Left ventricle end systole: 4.1 cm. Posterior wall: 0.7 cm. Interventricular septum: 1.2 cm. Left atrium: cm. Aortic root: cm. This study was technically very limited. SUMMARY OF 2-DIMENSIONAL IMAGING: The global ejection fraction is moderately impaired. Ejection fraction appears to be somewhere in the neighborhood of 40%. There is wall motion abnormality involving the lateral as well as the inferior wall, suggesting ischemic heart disease. The right ventricle is probably mildly enlarged. There is a mild degree of concentric LVH. The aortic valve is a mechanical valve. Continuous wave Doppler across this valve indicates a maximum gradient that reaches up to 110 mmHg. The mean gradient is about 63 mmHg. This is abnormally elevated. When compared to previous echocardiograms from 10 years ago, the mean gradient was about 15-20 mmHg. The ratio of the aortic valve VTI over the LVOT VTI is about 10:1, indicating that probably there is obstruction to this valve. The mitral valve appears to be grossly normal. There is a mild degree of mitral regurgitation. The inferior vena cava is not particularly dilated. There is no pericardial effusion. IMPRESSION: In summary, this study shows: 1. Moderately impaired left ventricle. Ejection fraction in the neighborhood of 40% with wall motion abnormality involving the posterior, lateral and inferior wall, suggesting ischemic heart disease. 2. Suspect obstructing physiology of the aortic valve with a significant gradient. RECOMMENDATIONS: Consider obtaining a fluoroscopic evaluation of the aortic valve. That would reveal whether or not the leaflets are adequately opening and closing. Clinical correlation recommended. cc: MD Flaquito Resendez MD Roger H. Moss Jr, MD
[2017-05-22] MEDS: COUMADIN PO SCH (21:01)
[2017-05-22] MEDS: SEROQUEL PO SCH (21:01)
[2017-05-22] MEDS: CRESTOR PO SCH (21:01)
[2017-05-22 22:40] LABS: CK INDEX 0.7 (0.0-2.5); CK-MB 5.56 ng/mL (0.0-5.0)
[2017-05-23] MEDS: MORPHINE IV PRN ×8 (01:00→23:21)
[2017-05-23] MEDS: DUONEB (A & A) INH SCH ×6 (03:12→22:43)
[2017-05-23] MEDS: ZOSYN 3.375 GM/NS 3.375 GM/50 ML IVPB IV SCH ×4 (03:33→21:07)
[2017-05-23 04:13] LABS: ALLEN TEST YES; BE 5.5 mmoll (-3.0-3.0); BLOOD TYPE ARTERIAL; DRAW SITE R RADIAL; O2(CT) 17.5 mL/dL (15.0-23.0); PCO2(98.6) 42 mmHg (35-45); PO2(98.6) 91 mmHg (60-100); SAMPLE BLOOD; SAO2 98.9 % (95.0-100.0); THB 12.9 g/dL (11.5-17.4); pH(98.6) 7.46 (7.35-7.45)
[2017-05-23 04:15] LABS: MODALITY VENTIMASK
[2017-05-23 05:39] LABS: MANUAL DIFF NEEDED? NO
[2017-05-23 05:51] LABS: BASO% 0.6 % (0.0-0.8); EOS# 0.16 X1000 (0.0-0.7); EOS% 1.5 % (0.0-10.0); HEMATOCRIT 40.4 % (42.0-52.0); HEMOGLOBIN 12.9 g/dL (14.0-18.0); IMM GRAN# 0.06 X1000 (0.0-0.04); IMM GRAN% 0.6 % (0.0-0.5); LYMPH# 0.79 X1000 (1.2-3.4); LYMPH% 7.5 % (20.5-51.1); MCH 30.7 PG (27-31); MCHC 31.9 g/dL (33-37); MCV 96.2 FL (81-99); MONO% 8.5 % (1.7-9.3); MPV 10.2 FL (7.4-10.4); NEUT% 81.3 % (42.2-75.2); PLT 177 X1000 (130-400)
--- NOTE | 2017-05-23 06:16 | Diag Imaging Result Doc PS360 ---
EXAM: CHEST-1 VIEW HISTORY: SOB TECHNIQUE: Portable AP COMPARISON: 05/22/2017 FINDINGS: The lungs are well expanded. Sternal wires are present. Heart is not enlarged. There is vascular distention. This is slightly more pronounced than on the prior study. No pleural effusions identified. IMPRESSION: Worsening pulmonary edema. Electronically signed by Benjamin Foley 05/23/2017 6:14 AM
[2017-05-23 06:28] LABS: INR 3.98; PROTIME 45.6 Seconds (9.2-11.7)
[2017-05-23 06:49] LABS: CALCIUM 8.2 mg/dL (8.8-10.2); POTASSIUM 3.8 mmol/L (3.5-5.1)
--- NOTE | 2017-05-23 06:52 | EKG Report ---
Test Performed on : 05/23/2017 05:51:40 AM Test Reason : cp Blood Pressure : / mmHG Vent. Rate : 098 BPM Atrial Rate : 113 BPM P-R Int : 144 ms QRS Dur : 088 ms QT Int : 420 ms P-R-T Axes : 036 -08 007 degrees QTc Int : 536 ms Undetermined rhythm Possible Inferior infarct (cited on or before 12-APR-2012) Cannot rule out Anteroseptal infarct (cited on or before 12-APR-2012) Prolonged QT Abnormal ECG When compared with ECG of 22-MAY-2017 05:16, Current undetermined rhythm precludes rhythm comparison, needs review Confirmed by Donny CHA, Jg Doan ([id number]) on 05/24/2017 2:58:47 PM
[2017-05-23] MEDS ORDERED: LASIX IV ONE ×2 (07:11→19:27)
[2017-05-23] MEDS ORDERED: MAGNESIUM SULFATE 2 GM/S.W.I. 2 GM/50 ML IVPB IV ONE (07:12)
--- NOTE | 2017-05-23 07:38 | PROGRESS NOTE ---
DATE: 05/23/2017 SUBJECTIVE: Interval history was reviewed for the last [address] I spoke to Dr. Mckeon. Apparently he did talk to the family and they made him a DNR 1. He is completely confused, agitated, requiring sedation along with restraints. He also had a BiPAP machine. He is just off BiPAP machine. He continues to have tachypnea, agitated. No history was obtained from the patient. He is breathing about 30-35 breaths per minute. He is not responding properly. He had a CT scan of the head done last night. OBJECTIVE: Vital Signs: On examination, off BiPAP machine, tachycardic with PVCs. Afebrile. Blood pressure is 105/79. He is on 50% Ventimask, 94% pulse oximetry. The input and output are negative by 1.2 L. General: He is exhausted and tachycardic, tachypneic. Chest: Poor air entry. Heart: Sounds are very distant. Abdomen: Belly is soft, nontender. Good bowel sounds. Extremities: No peripheral edema. INVESTIGATIONS: CBC: White cell count 10, hematocrit 40, platelets 177,000. PT 45, INR 3.98. ABG pH is 7.46, pCO2 42, PO2 91 on 50%. SMA 7: Sodium 147, potassium 3.8, chloride 103, BUN 26, creatinine 1.3, calcium 8.2. CK is going up to 16. ProBNP 15,000. ASSESSMENT AND PLAN: 1. Acute respiratory failure due to decompensated systolic heart failure. IV Lasix 1 time. 2. Congestive heart failure. Blood pressure is low. Continue on Coreg and lisinopril as tolerated. 3. Prolonged QT interval with multifocal ventricular contractions; 2 g magnesium sulfate. 4. Status post prosthetic aortic valve. INR is 3.9. Discontinue Lovenox. 5. Cerebrovascular accident on the left side, stable. 6. Agitation. Sedation as needed 7. Living will is Do Not Resuscitate. Discussed with the family. cc: MD Paul Lenz Jr, MD MTDD
[2017-05-23 07:55] LABS: CK INDEX 0.5 (0.0-2.5); CK-MB 8.89 ng/mL (0.0-5.0)
[2017-05-23] MEDS: COLACE PO SCH ×2 (08:21→20:14)
[2017-05-23] MEDS: TUMS PO SCH ×4 (08:21→17:06)
[2017-05-23] MEDS: ASPIRIN EC PO SCH (08:21)
[2017-05-23] MEDS: COREG PO SCH ×2 (08:21→20:15)
[2017-05-23] MEDS: RAPAFLO PO SCH (09:05)
[2017-05-23 09:56] LABS: INR 4.14; PROTIME 47.6 Seconds (9.2-11.7)
[2017-05-23] MEDS: HALDOL IM PRN ×2 (12:58→20:56)
[2017-05-23] MEDS ORDERED: MORPHINE IV PRN (15:37)
[2017-05-23] MEDS: SEROQUEL PO SCH (20:13)
[2017-05-23] MEDS: CRESTOR PO SCH (20:13)
[2017-05-23] MEDS: COUMADIN PO SCH (20:14)
[2017-05-24] MEDS: HALDOL IM PRN ×4 (00:50→21:14)
[2017-05-24] MEDS: MORPHINE IV PRN ×9 (01:10→23:23)
[2017-05-24] MEDS: DUONEB (A & A) INH SCH ×6 (02:55→22:58)
[2017-05-24] MEDS: ZOSYN 3.375 GM/NS 3.375 GM/50 ML IVPB IV SCH ×4 (03:10→21:15)
[2017-05-24 05:15] LABS: MANUAL DIFF NEEDED? NO
[2017-05-24 05:26] LABS: EOS# 0.42 X1000 (0.0-0.7); EOS% 4.5 % (0.0-10.0); HEMATOCRIT 44.7 % (42.0-52.0); HEMOGLOBIN 13.8 g/dL (14.0-18.0); IMM GRAN# 0.04 X1000 (0.0-0.04); IMM GRAN% 0.4 % (0.0-0.5); LYMPH# 0.81 X1000 (1.2-3.4); LYMPH% 8.6 % (20.5-51.1); MCHC 30.9 g/dL (33-37); MCV 97.2 FL (81-99); MONO# 0.73 X1000 (0.11-0.59); MONO% 7.8 % (1.7-9.3); MPV 9.9 FL (7.4-10.4); NEUT% 77.7 % (42.2-75.2); PLT 183 X1000 (130-400)
[2017-05-24 05:47] LABS: CALCIUM 8.5 mg/dL (8.8-10.2); POTASSIUM 3.3 mmol/L (3.5-5.1)
[2017-05-24 06:07] LABS: PROTIME 80.8 Seconds (9.2-11.7)
[2017-05-24 06:09] LABS: INR 6.81
--- NOTE | 2017-05-24 07:23 | Diag Imaging Result Doc PS360 ---
CHEST-1 VIEW - 05/24/2017 INDICATION: SOB TECHNIQUE: COMPARISON: 05/23/2017 FINDINGS: Stable sternotomy wires. Stable cardiomegaly and pulmonary vascular congestion. Grossly stable mild interstitial pulmonary edema. No pneumothorax or large effusion. IMPRESSION: No change from prior. Electronically signed by Jonh Evans 05/24/2017 7:20 AM
[2017-05-24] MEDS ORDERED: LASIX IV ONE ×2 (07:41→16:00)
[2017-05-24] MEDS: TUMS PO SCH ×3 (08:11→16:22)
[2017-05-24] MEDS: ASPIRIN EC PO SCH (08:11)
[2017-05-24] MEDS: COLACE PO SCH ×2 (08:11→21:14)
[2017-05-24] MEDS: COREG PO SCH ×2 (08:11→21:14)
[2017-05-24] MEDS: RAPAFLO PO SCH (08:11)
[2017-05-24 10:03] LABS: PROTIME 85.1 Seconds (9.2-11.7)
[2017-05-24 10:05] LABS: INR 7.15
[2017-05-24] MEDS: SEROQUEL PO SCH (21:14)
[2017-05-24] MEDS: CRESTOR PO SCH (22:00)
[2017-05-24] MEDS: POTASSIUM CHLORIDE 20 MEQ/SWI 20 MEQ/100 ML IVPB IV SCH (23:26)
[2017-05-25] MEDS: DUONEB (A & A) INH SCH ×6 (03:19→23:12)
--- NOTE | 2017-05-25 04:15 | PROGRESS NOTE ---
DATE: 05/24/2017 SUBJECTIVE: Patient is still combative, agitated, not eating well. On Ventimask. Came off the BiPAP machine during last [address] head. No change on echocardiography findings were noted by Dr. Aldana. Chest x-ray continued showing CHF. He was given Lasix. Heart rate is 80s and with PVCs noted. He was more alert. Wants to eat some liquids and wants to get out of the bed. He is under restraints. Poor historian, confused. OBJECTIVE: Vital Signs: Tachycardic, afebrile. Blood pressure is 138/72 on 50% Ventimask at 92%. I/O's negative 1.75 L. HEENT: Within normal limits. Neck: Supple. Chest: Poor air entry. Heart: Distant heart sounds. Abdomen: Belly is soft, nontender. Extremities: No peripheral edema. Neurologic: No obvious deficits noted. INVESTIGATIONS: Chest x-ray still compatible with CHF. CBC: White cell count 9.4, hematocrit 44, platelets 183,000. INR 6.8, pH is 7.46, pCO2 42, PO2 90. SMA 7: Sodium 148, potassium 3.3, chloride 102, BUN 30, creatinine 1.2. CK was high at 1630. ProBNP was high. Echocardiography: Malfunction of the aortic valve. ASSESSMENT AND PLAN: 1. Acute respiratory failure due to congestive heart failure due to systolic dysfunction, Rythmol function of prosthetic aortic valve. 2. The patient has been on warfarin. INR is 7. Continue to hold. If there are any signs of bleeding, we will give fresh frozen plasma. 3. Hypokalemia. Replace the potassium. 4. Continue the diuresis and replace the potassium and magnesium as needed. 5. Left-sided cerebrovascular accident, stable. 6. Altered mental status with agitation. Sedation as needed. 7. Living will, Do Not Resuscitate. 8. Prognosis is poor at this time. LEVEL OF DOCUMENTATION: Twenty-five minutes. cc: MD Paul Lenz Jr, MD
[2017-05-25 05:01] LABS: ALLEN TEST YES; BE 10.7 mmoll (-3.0-3.0); BLOOD TYPE ARTERIAL; DRAW SITE R RADIAL; METHB 0.3 % (0.0-1.5); O2(CT) 18.3 mL/dL (15.0-23.0); PCO2(98.6) 44 mmHg (35-45); PO2(98.6) 63 mmHg (60-100); SAMPLE BLOOD; SAO2 95.9 % (95.0-100.0); THB 14.1 g/dL (11.5-17.4); pH(98.6) 7.51 (7.35-7.45)
[2017-05-25 05:03] LABS: MODALITY VENTIMASK
[2017-05-25] MEDS: ZOSYN 3.375 GM/NS 3.375 GM/50 ML IVPB IV SCH ×4 (05:25→20:59)
[2017-05-25] MEDS: POTASSIUM CHLORIDE 20 MEQ/SWI 20 MEQ/100 ML IVPB IV SCH ×3 (05:26→20:40)
[2017-05-25 05:39] LABS: MANUAL DIFF NEEDED? NO
[2017-05-25 05:59] LABS: BASO% 0.3 % (0.0-0.8); EOS# 0.06 X1000 (0.0-0.7); EOS% 0.6 % (0.0-10.0); HEMATOCRIT 45.5 % (42.0-52.0); HEMOGLOBIN 14.1 g/dL (14.0-18.0); IMM GRAN# 0.03 X1000 (0.0-0.04); IMM GRAN% 0.3 % (0.0-0.5); LYMPH# 0.62 X1000 (1.2-3.4); MCH 30.1 PG (27-31); MONO# 0.84 X1000 (0.11-0.59); MONO% 8.1 % (1.7-9.3); MPV 10.2 FL (7.4-10.4); NEUT% 84.7 % (42.2-75.2); PLT 231 X1000 (130-400); RBC 4.69 XMIL (4.7-6.1)
[2017-05-25 06:15] LABS: CALCIUM 9.3 mg/dL (8.8-10.2); POTASSIUM 3.2 mmol/L (3.5-5.1)
--- NOTE | 2017-05-25 06:21 | Diag Imaging Result Doc PS360 ---
EXAM: CHEST-1 VIEW HISTORY: SOB TECHNIQUE: Portable COMPARISON: 05/24/2017 FINDINGS: The lungs are well expanded. The heart is not enlarged. There are increased interstitial markings bilaterally. A calcified granuloma is found in the lower right lung. Sternal wires are present. There are no infiltrates. No effusion identified. IMPRESSION: No significant change. Electronically signed by Benjamin Foley 05/25/2017 6:19 AM
[2017-05-25 06:24] LABS: PROTIME > 100.0 Seconds (9.2-11.7)
[2017-05-25 06:41] LABS: INR > 11.25
[2017-05-25] MEDS ORDERED: VITAMIN K SUBQ ONE (08:17)
[2017-05-25] MEDS: COREG PO SCH ×2 (08:53→20:42)
[2017-05-25] MEDS: TUMS PO SCH ×3 (09:00→18:22)
[2017-05-25] MEDS: COLACE PO SCH ×2 (09:00→20:42)
[2017-05-25] MEDS: ASPIRIN EC PO SCH (09:00)
[2017-05-25] MEDS: RAPAFLO PO SCH (09:02)
[2017-05-25] MEDS: HALDOL IM PRN ×2 (10:16→15:13)
[2017-05-25] MEDS ORDERED: ASPIRIN PO ONE (11:04)
--- NOTE | 2017-05-25 18:08 | PROGRESS NOTE ---
DATE: 05/25/2017 SUBJECT: Patient is not improving. Continues to have shortness of breath, agitation, confusion, not eating very well, on 50% Ventimask. REVIEW OF SYSTEMS: None reported. PHYSICAL EXAMINATION: Vital signs: Afebrile. Vitals are stable, 50% on 94% Ventimask. HEENT: Within normal limits. Chest: Clear. Heart: Sounds are regular. Belly: Soft, nontender. Extremities: No peripheral edema, cyanosis. Neuro: No obvious neurological deficits. Still under restraints on Ventimask noted. Genitourinary: Stroud catheter was seen. INVESTIGATIONS: CBC. White cell count 10, hematocrit 45, platelets 231,000. PT 100, INR 11.2. ABG pH is 7.41, pCO2 44, PO2 63 on Ventimask. SMA 7, sodium 149, potassium 3.2 , chloride 101, BUN 35, creatinine 1.4. ASSESSMENT AND PLAN: 1. Coagulopathy. No signs of active bleeding noted. Plan is hold the warfarin and Lovenox already held, vitamin K 1 mg IV. If there is any symptoms, signs of bleeding will transfuse 2 units of FFP 2. Decompensated acute congestive heart failure due to malfunction of the aortic prosthetic valve. Lasix as needed. 3. Multifocal premature ventricular contractions, potassium IV and magnesium directed. 4. Prognosis is poor. Discussed with the family members living will, do not resuscitate. Slowly leaning towards comfort care with morphine and Ativan as needed. LEVEL OF DOCUMENTATION: 25 minutes. cc: MD Paul Lenz Jr, MD MTDD
[2017-05-25] MEDS: CRESTOR PO SCH (20:42)
[2017-05-25] MEDS: SEROQUEL PO SCH (20:42)
[2017-05-26] MEDS ORDERED: DUONEB (A & A) ONE ×2 (03:11→03:13)
[2017-05-26] MEDS: DUONEB (A & A) INH SCH ×6 (03:33→23:12)
[2017-05-26] MEDS: ZOSYN 3.375 GM/NS 3.375 GM/50 ML IVPB IV SCH ×3 (03:42→18:46)
[2017-05-26 05:23] LABS: MANUAL DIFF NEEDED? NO
[2017-05-26 05:39] LABS: BASO% 0.5 % (0.0-0.8); EOS# 0.02 X1000 (0.0-0.7); EOS% 0.2 % (0.0-10.0); HEMATOCRIT 47.1 % (42.0-52.0); HEMOGLOBIN 14.1 g/dL (14.0-18.0); IMM GRAN# 0.04 X1000 (0.0-0.04); IMM GRAN% 0.4 % (0.0-0.5); LYMPH# 0.92 X1000 (1.2-3.4); LYMPH% 8.9 % (20.5-51.1); MCH 29.4 PG (27-31); MCHC 29.9 g/dL (33-37); MCV 98.1 FL (81-99); MONO# 0.88 X1000 (0.11-0.59); MONO% 8.5 % (1.7-9.3); MPV 10.3 FL (7.4-10.4); NEUT% 81.5 % (42.2-75.2); PLT 271 X1000 (130-400)
[2017-05-26 05:43] LABS: INR 2.36; PROTIME 26.2 Seconds (9.2-11.7)
[2017-05-26 06:15] LABS: CALCIUM 9.6 mg/dL (8.8-10.2); POTASSIUM 3.1 mmol/L (3.5-5.1)
[2017-05-26] MEDS ORDERED: POTASSIUM CHLORIDE 40 MEQ/SWI 40 MEQ/100 ML IVPB IV ONE (08:25)
[2017-05-26] MEDS ORDERED: MAGNESIUM SULFATE 2 GM/S.W.I. 2 GM/50 ML IVPB IV ONE (08:27)
[2017-05-26] MEDS: ASPIRIN PO SCH (09:00)
[2017-05-26] MEDS: RAPAFLO PO SCH (09:00)
[2017-05-26] MEDS: COLACE PO SCH ×2 (09:00→20:00)
[2017-05-26] MEDS: TUMS PO SCH ×3 (09:00→16:37)
[2017-05-26] MEDS: COREG PO SCH ×2 (10:20→20:00)
--- NOTE | 2017-05-26 10:52 | PROGRESS NOTE ---
DATE: 05/26/2017 SUBJECTIVE: The patient is much more improved. He is awake and he does not appear to have shortness of breath. He is sitting upright, wants to eat, and he is not agitated. Does not appear to be short of breath. Last 24 hours, vitamin K was given. REVIEW OF SYSTEMS: None reported. OBJECTIVE: Vital Signs: He has a low-grade fever. Heart rate is 106, blood pressure is 100/67, and on 50% Ventimask. HEENT: Within normal limits. Heart and Lungs: Tachycardic with a murmur noted in the aortic area. No significant rhonchi or wheezing noted. Abdomen: Belly is soft, nontender. Extremities: No peripheral edema. No obvious neurological deficit. Patient is still under restraints. INVESTIGATIONS: CBC: White cell count 10, hematocrit 47, platelets 271,000. PT 26. INR 2.36. SMA 7: Sodium 135, potassium 3.1, chloride 109, BUN 39, creatinine 1.5, glucose 108. ASSESSMENT AND PLAN: 1. Acute respiratory failure due to congestive heart failure, status post prosthetic aortic valve. Questionable malfunctioning. Ejection fraction 30%. Symptoms improved after Lasix. 2. Hyponatremia due to over-diuresis. Encouraged the patient to take p.o. liquids and he is tolerating very well. 3. Hypokalemia and multifocal premature ventricular contractions. Replace the potassium and magnesium. 4. Coagulopathy. Off warfarin and Lovenox. INR is 2.3 after vitamin K. 5. Cerebrovascular accident on the left side, stable. Discussed with the patient's son. Will continue present medical therapy and BiPAP as needed, and will follow up on daily CBC and PT/INR. LEVEL OF DOCUMENTATION: Twenty-five minutes. cc: MD Paul Lenz Jr, MD
[2017-05-26] MEDS: D5W 1,000 ML IV SCH (11:45)
[2017-05-26] MEDS: HALDOL IM PRN ×2 (14:13→23:25)
[2017-05-26] MEDS: CRESTOR PO SCH (20:00)
[2017-05-26] MEDS: SEROQUEL PO SCH (20:00)
[2017-05-26] MEDS: COUMADIN PO SCH (20:00)
[2017-05-27] MEDS: D5W 1,000 ML IV SCH ×2 (01:38→13:58)
[2017-05-27] MEDS: ZOSYN 3.375 GM/NS 3.375 GM/50 ML IVPB IV SCH ×3 (03:34→18:21)
[2017-05-27 05:25] LABS: MANUAL DIFF NEEDED? NO
[2017-05-27 05:32] LABS: BASO% 0.7 % (0.0-0.8); EOS# 0.29 X1000 (0.0-0.7); EOS% 2.7 % (0.0-10.0); HEMATOCRIT 46.4 % (42.0-52.0); IMM GRAN# 0.04 X1000 (0.0-0.04); IMM GRAN% 0.4 % (0.0-0.5); LYMPH# 0.86 X1000 (1.2-3.4); LYMPH% 7.9 % (20.5-51.1); MCH 29.7 PG (27-31); MCHC 30.2 g/dL (33-37); MCV 98.5 FL (81-99); MONO# 0.68 X1000 (0.11-0.59); MONO% 6.3 % (1.7-9.3); MPV 10.2 FL (7.4-10.4); PLT 262 X1000 (130-400); RBC 4.71 XMIL (4.7-6.1)
[2017-05-27 06:03] LABS: CALCIUM 9.1 mg/dL (8.8-10.2); POTASSIUM 3.3 mmol/L (3.5-5.1)
[2017-05-27 07:32] LABS: INR 1.7; PROTIME 18.5 Seconds (9.2-11.7)
[2017-05-27] MEDS: DUONEB (A & A) INH SCH ×6 (07:51→23:45)
[2017-05-27] MEDS: TUMS PO SCH ×3 (08:44→17:31)
[2017-05-27] MEDS: COLACE PO SCH ×2 (08:44→20:07)
[2017-05-27] MEDS: RAPAFLO PO SCH (08:44)
[2017-05-27] MEDS: COREG PO SCH ×2 (08:44→20:17)
[2017-05-27] MEDS: ASPIRIN PO SCH (08:44)
[2017-05-27] MEDS ORDERED: POTASSIUM CHLORIDE 40 MEQ/SWI 40 MEQ/100 ML IVPB IV ONE (08:45)
[2017-05-27] MEDS: POTASSIUM CHLORIDE 20 MEQ/SWI 20 MEQ/100 ML IVPB IV SCH ×2 (08:59→11:00)
--- NOTE | 2017-05-27 09:08 | PROGRESS NOTE ---
DATE: 05/27/2017 SUBJECTIVE: The patient is more alert and less dyspneic. Oxygen weaning off slowly, on nasal cannula. Tolerating a liquid diet. Intermittently confused and agitated but more appropriate. Denies of any complaints. PHYSICAL EXAMINATION: Vital Signs: Afebrile, blood pressure is 133/78, pulse is 101, on 2 L nasal cannula at 92%. Is and Os are slightly positive at 1100. HEENT Examination: Not in distress. Chest: Clear to auscultation. Heart: Heart sounds are regular. Abdomen: Belly is soft, nontender. Extremities: No peripheral edema. INVESTIGATIONS: CBC: White cell count 10, hematocrit 46, platelets 262,000. PTT 18, INR 1.7. SMA 7: Sodium 155, potassium 3.3, chloride 111, BUN 37, creatinine 1.2, and glucose 127. ASSESSMENT AND PLAN: 1. Congestive heart failure due to systolic dysfunction, improving. 2. Hypernatremia and dehydration. Hold the Lasix. 3. Potassium, hypokalemia. Replace the potassium. 4. Coumadin toxicity, improving. We will restart warfarin 2.5 mg at bedtime. PLAN OF CARE: Advanced the diet. Out of the bed. Replace the potassium. I would encourage giving the fluids by mouth and Dr. Yadav started her on dextrose at 75 mL per hour. We will follow up and readjust. LEVEL OF DOCUMENTATION: 25 minutes. cc: MD Paul Lenz Jr, MD
--- NOTE | 2017-05-27 11:19 | Diag Imaging Result Doc PS360 ---
EXAM: CHEST-1 VIEW HISTORY: SOB TECHNIQUE: AP portable at 1030 COMMENT: Compared to the previous study of 05/25/2017 there has been some improvement in opacity over the right lower lobe. IMPRESSION: Improved pulmonary edema and/or pneumonia. Electronically signed by Quinton Glynn 05/27/2017 11:17 AM
[2017-05-27] MEDS: HALDOL IM PRN (13:30)
[2017-05-27] MEDS: CRESTOR PO SCH (20:07)
[2017-05-27] MEDS: SEROQUEL PO SCH (20:07)
[2017-05-27] MEDS: COUMADIN PO SCH (20:07)
[2017-05-28] MEDS: D5W 1,000 ML IV SCH ×2 (02:00→16:47)
[2017-05-28] MEDS: ZOSYN 3.375 GM/NS 3.375 GM/50 ML IVPB IV SCH ×3 (03:11→18:36)
[2017-05-28] MEDS: DUONEB (A & A) INH SCH ×6 (03:46→22:55)
[2017-05-28 05:57] LABS: MANUAL DIFF NEEDED? NO
--- NOTE | 2017-05-28 06:28 | Diag Imaging Result Doc PS360 ---
CHEST-1 VIEW - 05/28/2017 INDICATION: hypoxia TECHNIQUE: COMPARISON: 05/27/2017 FINDINGS: There is significant improvement in aeration of the left lower lobe, with visualization of the left hemidiaphragm. Stable cardiomegaly and pulmonary vascular congestion. There may be some stable interstitial pulmonary edema as well. Heart size remains somewhat enlarged. IMPRESSION: Significant improvement in aeration of the left lower lobe. Otherwise little change from prior. Electronically signed by Jonh Evans 05/28/2017 6:25 AM
[2017-05-28 06:31] LABS: BASO% 0.6 % (0.0-0.8); EOS# 0.59 X1000 (0.0-0.7); EOS% 5.9 % (0.0-10.0); HEMATOCRIT 46.3 % (42.0-52.0); HEMOGLOBIN 14.1 g/dL (14.0-18.0); IMM GRAN# 0.08 X1000 (0.0-0.04); IMM GRAN% 0.8 % (0.0-0.5); LYMPH# 1.07 X1000 (1.2-3.4); LYMPH% 10.7 % (20.5-51.1); MCH 29.9 PG (27-31); MCHC 30.5 g/dL (33-37); MCV 98.3 FL (81-99); MPV 10.7 FL (7.4-10.4); PLT 222 X1000 (130-400); RBC 4.71 XMIL (4.7-6.1)
[2017-05-28 06:55] LABS: CALCIUM 8.5 mg/dL (8.8-10.2); POTASSIUM 3.2 mmol/L (3.5-5.1)
[2017-05-28] MEDS: TUMS PO SCH ×3 (08:28→17:55)
[2017-05-28] MEDS: COREG PO SCH ×2 (08:28→20:29)
[2017-05-28] MEDS: RAPAFLO PO SCH (08:28)
[2017-05-28] MEDS: COLACE PO SCH ×2 (08:28→20:29)
[2017-05-28] MEDS: ASPIRIN PO SCH (08:29)
[2017-05-28] MEDS: POTASSIUM CHLORIDE 20 MEQ/SWI 20 MEQ/100 ML IVPB IV SCH ×2 (09:28→11:14)
[2017-05-28] MEDS ORDERED: COUMADIN PO ONE (13:02)
[2017-05-28] MEDS: HALDOL IM PRN (14:57)
--- NOTE | 2017-05-28 15:22 | PROGRESS NOTE ---
DATE: 05/28/2017 SUBJECTIVE: The patient is intermittently agitated at the end of the day. Requiring restraints. Other than that, this morning he is doing very well. He is awake and does not appear still with shortness of breath. The nurses are assisting for feeding with applesauce and the medicines. He is still in restraints. REVIEW OF SYSTEMS: None reported. OBJECTIVE: Vital Signs: Temperature is 97 degrees, pulse is 83, and blood pressure is 103/59, 2 L nasal cannula. Input and output, slightly positive 1580 mL. General appearance: He is not in distress, worn out. Chest: Clear. Heart: Sounds are regular. Prosthetic aortic valve with a loud S2. No murmurs. Belly is soft, nontender. Extremities: No edema and no obvious neurological deficits noted. INVESTIGATIONS: CBC: White cell count 10, hematocrit 46, platelets 222,000. INR was 1.7 yesterday. SMA 7, sodium 153, potassium 3.2, chloride 108, BUN 33, creatinine 1.2. ASSESSMENT AND PLAN: 1. Congestive heart failure due to systolic dysfunction. EF 30%. Currently stable. Continue on Coreg 6.25 mg p.o. b.i.d. and also if blood pressure tolerates will initiate low dose of lisinopril. 2. Status post prosthetic aortic valve on warfarin 2.5 mg at bedtime. Check the PT/INR. 3. Hypernatremic dehydration with excessive diuresis. Gentle D5W 75 mL an hour and continue until he improves the oral intake and sodium levels comes back to normal. 4. Hypokalemia. Replace the potassium. 5. Cerebrovascular accident on the left side, stable. 6. Delirium. Continue on Haldol and Seroquel as directed. 7. Living will, DNR. Discussed the plan of care with the son. He is beginning to show some improvement. Continue to monitor his progress. LEVEL OF DOCUMENTATION: Twenty-five minutes. cc: MD Paul Lenz Jr, MD
[2017-05-28] MEDS: CRESTOR PO SCH (20:28)
[2017-05-28] MEDS: SEROQUEL PO SCH (20:29)
[2017-05-28] MEDS: COUMADIN PO SCH (20:29)
[2017-05-29] MEDS: ZOSYN 3.375 GM/NS 3.375 GM/50 ML IVPB IV SCH ×3 (03:36→18:20)
[2017-05-29] MEDS: DUONEB (A & A) INH SCH ×6 (03:56→22:41)
[2017-05-29] MEDS: D5W 1,000 ML IV SCH ×2 (04:28→18:21)
[2017-05-29 06:51] LABS: BASO% 0.8 % (0.0-0.8); EOS# 0.65 X1000 (0.0-0.7); EOS% 6.6 % (0.0-10.0); HEMATOCRIT 48.1 % (42.0-52.0); HEMOGLOBIN 14.9 g/dL (14.0-18.0); IMM GRAN# 0.16 X1000 (0.0-0.04); IMM GRAN% 1.6 % (0.0-0.5); LYMPH# 0.96 X1000 (1.2-3.4); LYMPH% 9.8 % (20.5-51.1); MANUAL DIFF NEEDED? YES; MCH 30.1 PG (27-31); MCV 97.2 FL (81-99); MONO# 0.66 X1000 (0.11-0.59); MONO% 6.7 % (1.7-9.3); NEUT% 74.5 % (42.2-75.2); PLT 219 X1000 (130-400); RBC 4.95 XMIL (4.7-6.1)
[2017-05-29 07:13] LABS: CALCIUM 8.7 mg/dL (8.8-10.2); POTASSIUM 3.6 mmol/L (3.5-5.1)
[2017-05-29 07:30] LABS: BANDS 4 % (0-1); EOS 6 % (1-10); LYMPHS 12 % (21-51); MONO 6 % (1-9)
[2017-05-29 08:01] LABS: INR 5.37; PROTIME 62.8 Seconds (9.2-11.7)
[2017-05-29] MEDS: ASPIRIN PO SCH (08:22)
[2017-05-29] MEDS: TUMS PO SCH ×3 (08:22→18:04)
[2017-05-29] MEDS: COLACE PO SCH ×2 (08:22→21:47)
[2017-05-29] MEDS: RAPAFLO PO SCH (08:22)
[2017-05-29] MEDS: COREG PO SCH ×2 (08:22→21:47)
--- NOTE | 2017-05-29 12:04 | PROGRESS NOTE ---
DATE: 05/29/2017 His last INR was 5.37. Coumadin has been held. He is extremely drowsy at the present time. Last night he was confused and was given Seroquel 25 mg daily. This could be the effect of Seroquel. However, his systolic blood pressure is 76 and diastolic is 50. He is hypotensive he is not on any pressor agents. Electrolytes are normal. BUN 27, creatinine 1.3. CBC is unremarkable. If he does not wake up by about 3 PM and the blood pressure is low, we will start Radhames-Synephrine or some other pressor agents on him. We will repeat the electrolytes on him again. Overall prognosis seems to be seems to be poor. cc: MD Paul Miles Jr, MD
[2017-05-29] MEDS: POTASSIUM CHLORIDE 20% LIQUID PO ONE ×2 (13:36→18:39)
[2017-05-29] MEDS ORDERED: NS IV ONE (14:30)
[2017-05-29] MEDS ORDERED: POTASSIUM CHLORIDE IV ONE (14:30)
--- NOTE | 2017-05-29 14:49 | PROGRESS NOTE ---
DATE: 05/29/2017 CHIEF COMPLAINT: Weakness and dysphasia. SUBJECTIVE: Mr. Freitas is responding almost appropriately. At times he appears to be somewhat confused. 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 He denies having chest pain or shortness of breath. He appears to be comfortable. OBJECTIVE: Vital signs: Blood pressure is 109/65, pulse 87, temperature 97.6, and respirations 29. General: He is awake. He follows some commands. HEENT: No gross abnormality. Chest: Diminished breath sounds at the bases. Cardiovascular: Heart sounds are irregular at times. On auscultation of the heart I did not hear the closing click of the mechanical aortic valve. He does have a systolic murmur, 2-3/6 in the aortic area. Abdomen: Nontender and nondistended. Extremities: The extremities show decreased pulses. No edema. Neurological: Subtle weakness on the right side. LABORATORY DATA: Blood work today shows a hemoglobin of 14.9. White cell count is 9.840. His INR today is 5.37. Sodium is 145, potassium 3.6, BUN 27, and creatinine 1.3. A chest x-ray was done on 05/28/2017 which was yesterday and shows significant improvement in aeration of the left lower lobe. Otherwise, little change from prior. IMPRESSION: 1. Patient who has suffered a stroke, presumably embolic to the left temporal area. The language area is affected. Global aphasia. 2. History of severe coronary artery disease status post coronary valve surgery. 3. History of hypertension. 4. Status post aortic valve replacement with a mechanical aortic valve. Suspect partial thrombosis. 5. Ventricular arrhythmia with torsades de pointes. This probably relates to hypokalemia and hypomagnesemia. RECOMMENDATIONS: We will replace potassium and we will check the magnesium and replace. Regarding the aortic valve disease, he is being anticoagulated. His INR is supranormal today. We will have to put it on hold today. This will continue to be monitored. The INR has to be between 3.5 and 4. Further advise will be forthcoming. cc: MD Paul Resendez Jr, MD MTDD
[2017-05-29] MEDS: CRESTOR PO SCH (21:47)
[2017-05-29] MEDS: SEROQUEL PO SCH (21:48)
[2017-05-29] MEDS: COUMADIN PO SCH (21:48)
[2017-05-30] MEDS: DUONEB (A & A) INH SCH ×6 (02:38→22:45)
[2017-05-30] MEDS: ZOSYN 3.375 GM/NS 3.375 GM/50 ML IVPB IV SCH ×3 (03:12→18:00)
[2017-05-30 04:44] LABS: MANUAL DIFF NEEDED? NO
[2017-05-30 05:02] LABS: BASO% 0.6 % (0.0-0.8); EOS# 0.52 X1000 (0.0-0.7); EOS% 4.9 % (0.0-10.0); HEMATOCRIT 44.2 % (42.0-52.0); HEMOGLOBIN 13.7 g/dL (14.0-18.0); IMM GRAN# 0.21 X1000 (0.0-0.04); LYMPH# 1.12 X1000 (1.2-3.4); LYMPH% 10.5 % (20.5-51.1); MCH 29.8 PG (27-31); MCV 96.1 FL (81-99); MONO# 0.86 X1000 (0.11-0.59); MPV 10.2 FL (7.4-10.4); PLT 225 X1000 (130-400)
[2017-05-30 05:26] LABS: CALCIUM 8.2 mg/dL (8.8-10.2); POTASSIUM 3.5 mmol/L (3.5-5.1)
[2017-05-30 06:40] LABS: INR 7.31; PROTIME 87.1 Seconds (9.2-11.7)
[2017-05-30] MEDS: D5W 1,000 ML IV SCH ×2 (07:36→20:54)
[2017-05-30] MEDS: COLACE PO SCH ×2 (08:07→20:54)
[2017-05-30] MEDS: RAPAFLO PO SCH (08:07)
[2017-05-30] MEDS: ASPIRIN PO SCH (08:07)
[2017-05-30] MEDS: TUMS PO SCH ×3 (08:08→17:30)
--- NOTE | 2017-05-30 08:40 | PROGRESS NOTE ---
DATE: 05/30/2017 SUBJECTIVE: The patient is confused. He is alert when he awakens. OBJECTIVE: Vital Signs: Blood pressure is 127/80 which is improved, respirations 22, pulse 82, temp 97.0 degrees Fahrenheit, oxygen saturation on 2 L per nasal cannula is 94%. HEENT: Normocephalic. EOMS intact. PERRLA. Throat clear. Lungs: Sound clear to auscultation and percussion without rhonchi, rales, or wheezes. Heart: Regular rate and rhythm without murmurs, gallops, or friction rubs at this point. He does have a mechanical aortic valve replacement. Abdomen: Soft. Active bowel sounds. No organomegaly or tenderness. Neurological exam: Patient is confused. He is moving all extremities. Somewhat lethargic, but apparently much better than yesterday. LABORATORY AND X-RAY: Shows his INR which had been 5.37 is up to 7.31 and have held his warfarin. White count 10,690, hemoglobin is 13.7, hematocrit 44.2, platelet count is 225,000. Potassium was 3.5. BUN 24, creatinine 1.2. His echocardiogram showed an ejection fraction of 30%. ASSESSMENT: 1. Cerebrovascular accident. 2. Congestive heart failure. 3. Episode of torsades de pointes. 4. Hypomagnesemia. 5. Hypokalemia. Last magnesium was 2.2. Also has a coagulopathy. PLAN: Continue care. We will try to get his coagulopathy controlled and his heart failure under control. cc: Paul More Jr, MD
[2017-05-30] MEDS: MORPHINE IV PRN ×2 (08:55→22:39)
[2017-05-30] MEDS: COREG PO SCH ×2 (09:05→20:42)
[2017-05-30] MEDS: SEROQUEL PO SCH (20:54)
[2017-05-30] MEDS: CRESTOR PO SCH (20:54)
[2017-05-31] MEDS: HALDOL IM PRN ×2 (00:32→20:22)
[2017-05-31] MEDS: MORPHINE IV PRN ×2 (00:32→20:20)
[2017-05-31] MEDS: ZOSYN 3.375 GM/NS 3.375 GM/50 ML IVPB IV SCH ×3 (02:30→19:16)
[2017-05-31] MEDS: DUONEB (A & A) INH SCH ×6 (02:36→22:44)
[2017-05-31 06:02] LABS: MANUAL DIFF NEEDED? NO
[2017-05-31 06:07] LABS: BASO% 2.3 % (0.0-0.8); EOS# 0.33 X1000 (0.0-0.7); EOS% 3.4 % (0.0-10.0); HEMATOCRIT 43.8 % (42.0-52.0); HEMOGLOBIN 13.6 g/dL (14.0-18.0); IMM GRAN# 0.19 X1000 (0.0-0.04); IMM GRAN% 1.9 % (0.0-0.5); LYMPH# 0.71 X1000 (1.2-3.4); LYMPH% 7.3 % (20.5-51.1); MCH 30.5 PG (27-31); MCHC 31.1 g/dL (33-37); MCV 98.2 FL (81-99); MONO# 0.89 X1000 (0.11-0.59); MONO% 9.1 % (1.7-9.3); MPV 10.6 FL (7.4-10.4); PLT 208 X1000 (130-400); RBC 4.46 XMIL (4.7-6.1)
[2017-05-31 06:29] LABS: AGAP 12; ALBUMIN 2.8 g/dL (3.5-5.0); ALKALINE PHOSPHATASE 39 U/L (32-122); BUN 16 mg/dL (8-22); CALCIUM 8.2 mg/dL (8.8-10.2); CHLORIDE 106 mmol/L (98-107); COSMO 281; GOT 43 U/L (10-34); GPT 32 U/L (10-44); MAGNESIUM 2.1 mg/dL (1.5-2.7); POTASSIUM 3.3 mmol/L (3.5-5.1); SODIUM 140 mmol/L (136-145); TCO2 22 mmol/L (25-35); TOTAL BILIRUBIN 1.32 mg/dL (0.20-1.00); TOTAL PROTEIN 5.9 g/dL (6.3-8.3)
[2017-05-31 06:45] LABS: PROTIME 97.9 Seconds (9.2-11.7)
[2017-05-31 06:47] LABS: INR 8.15
--- NOTE | 2017-05-31 07:39 | Diag Imaging Result Doc PS360 ---
EXAM: CHEST-PORTABLE HISTORY: abnormal exam TECHNIQUE: AP portable at 0500 COMMENT: There is slightly worsening in interstitial opacity since 05/28/2017. The heart size and primary vascularity are stable in appearance. There is been improvement since 05/25/2017. IMPRESSION: Minimal worsening in interstitial pulmonary edema. Electronically signed by Quinton Glynn 05/31/2017 7:36 AM
[2017-05-31] MEDS ORDERED: VITAMIN K 10 MG in NS 50 ML IV ONE (08:00)
[2017-05-31] MEDS: COLACE PO SCH ×2 (08:37→20:22)
[2017-05-31] MEDS: COREG PO SCH ×2 (08:37→20:23)
[2017-05-31] MEDS: RAPAFLO PO SCH (08:37)
[2017-05-31] MEDS: TUMS PO SCH ×3 (08:37→17:18)
[2017-05-31] MEDS: ASPIRIN PO SCH (08:41)
--- NOTE | 2017-05-31 08:57 | PROGRESS NOTE ---
DATE: 05/31/2017 SUBJECTIVE: Patient is still confused. He is alert. OBJECTIVE: Vital Signs: Blood pressure is 140/86, respirations 24, temperature 97.8 degrees Fahrenheit, pulse is 92 and regular sounding at this point. Abdomen: Soft. Active bowel sounds. Laboratory Data: Potassium is a little low at 3.3 and INR is 8.15. ASSESSMENT: 1. Cerebrovascular accident. 2. Pulmonary edema and congestive heart failure. 3. Coagulopathy. 4. Episode of torsades de pointes. PLAN: We will try to correct coagulopathy. We will give supplemental potassium. cc: Paul More Jr, MD
[2017-05-31] MEDS ORDERED: POTASSIUM CHLORIDE 40 MEQ/SWI 40 MEQ/100 ML IVPB IV SCH (09:00)
[2017-05-31] MEDS ORDERED: NS 500 ML ONE (10:35)
[2017-05-31] MEDS: POTASSIUM CHLORIDE 40 MEQ in NS 250 ML IV SCH ×2 (10:40→17:18)
[2017-05-31] MEDS: D5W 1,000 ML IV SCH (10:41)
--- NOTE | 2017-05-31 17:17 | PROGRESS NOTE ---
DATE: 05/31/2017 CHIEF COMPLAINT: Stroke, shortness of breath. SUBJECTIVE: Mr. Freitas is more awake. He is not as short of breath as he was. Today his INR was found more elevated than yesterday and Dr. More treated him with vitamin K and ordered a fresh frozen plasma unit. OBJECTIVE: Vital signs: Blood pressure 115/82, temperature 98.2, pulse 89, respirations 22. General: He is awake, alert, oriented, in no distress. HEENT: Unremarkable. Chest: Diminished breath sounds at the bases. Cardiac: Heart sounds are irregular with closing click of aortic valve. Abdomen: Soft. Extremities: Show no obvious edema. Pulses diminished. LABORATORY DATA: Sodium 140, potassium 3.3, BUN 16, creatinine 1.1. IMPRESSION: 1. Patient who has suffered a stroke involving the temporal area with global aphasia. 2. History of coronary heart disease, status post coronary artery bypass surgery. 3. History of aortic valve replacement. He has a mechanical aortic valve. 4. Ventricular arrhythmia, torsade de pointes. This has not recurred. RECOMMENDATIONS: Because of the concern about the aortic valve potentially being thrombosed, I recommended to perform fluoroscopy which we did briefly today. This study showed that his aortic valve leaflets seem to open and close appropriately. I do not see any conclusive indication of malfunction. At this point in time, we will try to keep his INR between 3 and 4. The stroke is probably related to partial thrombosis of the valve. I would probably like to get a followup echocardiogram tomorrow morning, just a limited one, to assess the gradient across the valve and compare it against the one that we did several days ago. Further advice will be forthcoming. cc: MD Paul Resendez Jr, MD MTDD
[2017-05-31] MEDS: SEROQUEL PO SCH (20:22)
[2017-05-31] MEDS: CRESTOR PO SCH (20:22)
[2017-06-01] MEDS: D5W 1,000 ML IV SCH ×2 (00:40→15:51)
[2017-06-01] MEDS: DUONEB (A & A) INH SCH ×6 (02:55→23:31)
[2017-06-01] MEDS: ZOSYN 3.375 GM/NS 3.375 GM/50 ML IVPB IV SCH ×3 (03:11→18:40)
[2017-06-01 06:08] LABS: INR 1.16; PROTIME 12.3 Seconds (9.2-11.7)
[2017-06-01] MEDS: TUMS PO SCH ×3 (08:49→16:00)
[2017-06-01] MEDS: COLACE PO SCH ×2 (08:49→20:40)
[2017-06-01] MEDS: ASPIRIN PO SCH (08:49)
[2017-06-01] MEDS: COREG PO SCH ×2 (08:51→20:41)
[2017-06-01] MEDS: RAPAFLO PO SCH (08:52)
--- NOTE | 2017-06-01 09:42 | Diag Imaging Result Doc PS360 ---
EXAM: CHEST-1 VIEW HISTORY: SOB TECHNIQUE: AP portable at 0925. COMMENT: There is increased interstitial opacity in the lung bases particularly the right lower lobe compared to the previous study of 05/31/2017. IMPRESSION: Worsening pulmonary edema. Electronically signed by Quinton Glynn 06/01/2017 9:39 AM
[2017-06-01] MEDS: LOVENOX SUBQ SCH ×2 (10:05→20:40)
--- NOTE | 2017-06-01 10:07 | PROGRESS NOTE ---
DATE: 06/01/2017 SUBJECTIVE: The patient is confused. He also falls off to sleep very quickly. His INR is down to under 2 now, and we will start him on Lovenox after having coagulopathy with an INR of over 8. OBJECTIVE: Blood pressure 104/57, pulse 118, temperature 97.7 degrees Fahrenheit. O2 saturation was only 81% and then came up to 92% on nasal cannula with 3 L. HEENT: Normocephalic. EOMs intact. PERRLA. Throat clear. Lungs are fairly clear to auscultation and percussion without rhonchi, rales, or wheezes at this time. Heart: Regular rate and rhythm without murmurs, gallops, or friction rubs. Abdomen soft. Active bowel sounds. No organomegaly or tenderness. Neurologic: Patient very confused and falls asleep easily. ASSESSMENT: 1. Cerebrovascular accident. 2. Pulmonary edema and congestive heart failure. 3. Coagulopathy. 4. Episode of torsades de pointes. PLAN: Continue support and possible echocardiogram today. cc: Paul More Jr, MD
[2017-06-01] MEDS: MORPHINE IV PRN ×4 (13:02→22:49)
--- NOTE | 2017-06-01 15:25 | ECHO REPORT ---
ORDER DATE: 05/31/2017 LIMITED ECHOCARDIOGRAM: SUMMARY: 1. Limited followup echocardiography with limited Doppler performed for purposes of reassessment of gradient across prosthetic aortic valve. Study is technically difficult. 2. Aortic valve was replaced with mechanical prosthesis which is well imaged. Peak gradient across the aortic valve prosthesis is 100 mmHg with a mean gradient of 65 mmHg. 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 Mitral, tricuspid and pulmonic valves are without gross structural abnormality. Aortic root is normal in size. 3. Normal after chamber size with mild concentric left hypertrophy is suggested on 2-dimensional images. Estimated left ventricular ejection fraction appears to be approximately 50%. No obvious wall motion abnormality can be appreciated. Left atrium is mildly enlarged. Right atrium and right ventricle are grossly normal size. 4. No pericardial effusion. cc: MD Daljit Mcfarland MD Roger H. Moss Jr, MD
[2017-06-01] MEDS: POTASSIUM CHLORIDE 20 MEQ/SWI 20 MEQ/100 ML IVPB IV SCH ×2 (15:51→17:46)
[2017-06-01] MEDS: HALDOL IM PRN ×2 (18:58→22:49)
[2017-06-01] MEDS: CRESTOR PO SCH (20:41)
[2017-06-01] MEDS: SEROQUEL PO SCH (20:41)
[2017-06-02] MEDS: D5W 1,000 ML IV SCH (02:43)
[2017-06-02] MEDS: ZOSYN 3.375 GM/NS 3.375 GM/50 ML IVPB IV SCH ×3 (02:43→19:00)
[2017-06-02] MEDS: DUONEB (A & A) INH SCH ×6 (03:55→23:11)
[2017-06-02] MEDS: MORPHINE IV PRN ×2 (04:02→10:40)
[2017-06-02 06:46] LABS: AGAP 13; BUN 14 mg/dL (8-22); CALCIUM 8.1 mg/dL (8.8-10.2); CHLORIDE 107 mmol/L (98-107); COSMO 282; MAGNESIUM 1.9 mg/dL (1.5-2.7); POTASSIUM 3.9 mmol/L (3.5-5.1); SODIUM 141 mmol/L (136-145); TCO2 21 mmol/L (25-35)
[2017-06-02] MEDS: ASPIRIN PO SCH (08:49)
[2017-06-02] MEDS: TUMS PO SCH ×3 (08:49→18:06)
[2017-06-02] MEDS: RAPAFLO PO SCH (08:49)
[2017-06-02] MEDS: COLACE PO SCH ×2 (08:49→21:28)
[2017-06-02] MEDS: LOVENOX SUBQ SCH ×2 (08:50→21:28)
[2017-06-02] MEDS: COREG PO SCH ×2 (10:45→22:08)
[2017-06-02] MEDS ORDERED: LASIX IV ONE (10:49)
[2017-06-02 11:58] LABS: INR 1.12; PROTIME 11.8 Seconds (9.2-11.7)
--- NOTE | 2017-06-02 12:47 | PROGRESS NOTE ---
DATE: 06/02/2017 SUBJECTIVE: The patient cannot speak with me now. He has been given morphine and is on a BiPAP. His chest x-ray had shown worsening pulmonary edema. Dr. Xiao has already ordered some IV Lasix. OBJECTIVE: Blood pressure 115/73, respirations 25, temperature 97.5 degrees Fahrenheit. Pulse is 96 and sounds regular at this time. Lungs sound fairly clear to auscultation at this point, but can only listen anteriorly. Heart: Regular rate and rhythm at this time, but he has had some intermittent atrial fibrillation apparently at times. Abdomen soft with active bowel sounds. No organomegaly or tenderness. ASSESSMENT: 1. Cerebrovascular accident. 2. Status post mechanical valve placement; probably thrombosis from the valve to cause a cerebrovascular accident. 3. Congestive heart failure with pulmonary edema. 4. Coagulopathy. 5. Episode of torsades de pointes. Some lab work is still pending. PLAN: Continue support. cc: Paul More Jr, MD
--- NOTE | 2017-06-02 14:04 | PROGRESS NOTE ---
DATE: 06/02/2017 SUBJECTIVE: Patient continues on BiPAP with FiO2 of 50%. He is somewhat confused. He denies discomfort. OBJECTIVE: Vital Signs: Blood pressure 115/73, heart rate 96 and regular with ECG monitor showing sinus rhythm. There is no significant jugular venous distention. Chest is clear to auscultation. Cardiac exam reveals a regular rate and rhythm with grade 2/6 systolic murmur at the right upper sternal border. Gallop could not be appreciated. There is no evidence of peripheral edema. IMPRESSION: 1. Respiratory failure. 2. Status post aortic valve replacement with mechanical prosthesis. An echocardiography suggests functional aortic stenosis. 3. Atherosclerotic coronary disease with previous coronary bypass surgery along with his aortic valve replacement 18 years ago. 4. Status post recent cerebrovascular accident. RECOMMENDATIONS: 1. Would resume anticoagulation with Lovenox. Given that he has had limited oral intake and is all parental antibiotics, it would likely be difficult to manage anticoagulation with Coumadin until after considerable improvement in his overall status. 2. Continue supportive care. He has limited nutritional support and, in discussing this with his son, he has expressed the desire not to have tube feeds. 3. 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 This was discussed with the patient's son, and he is of the opinion that his father would never what this. cc: MD Paul Mcfarland Jr, MD
[2017-06-02] MEDS: HALDOL IM PRN (15:08)
[2017-06-02] MEDS: CRESTOR PO SCH (21:28)
[2017-06-02] MEDS: SEROQUEL PO SCH (21:28)
[2017-06-03] MEDS: ZOSYN 3.375 GM/NS 3.375 GM/50 ML IVPB IV SCH ×3 (02:48→18:32)
[2017-06-03] MEDS: DUONEB (A & A) INH SCH ×6 (03:15→23:06)
[2017-06-03 06:08] LABS: MANUAL DIFF NEEDED? NO
[2017-06-03 06:10] LABS: EOS% 2.2 % (0.0-10.0); HEMATOCRIT 40.7 % (42.0-52.0); HEMOGLOBIN 12.8 g/dL (14.0-18.0); IMM GRAN# 0.15 X1000 (0.0-0.04); IMM GRAN% 1.7 % (0.0-0.5); LYMPH# 0.91 X1000 (1.2-3.4); LYMPH% 10.1 % (20.5-51.1); MCH 30.2 PG (27-31); MCHC 31.4 g/dL (33-37); MONO# 1.05 X1000 (0.11-0.59); MONO% 11.7 % (1.7-9.3); MPV 10.3 FL (7.4-10.4); NEUT% 73.3 % (42.2-75.2); PLT 262 X1000 (130-400); RBC 4.24 XMIL (4.7-6.1)
[2017-06-03 06:18] LABS: INR 1.18; PROTIME 12.5 Seconds (9.2-11.7)
[2017-06-03 06:28] LABS: AGAP 14; BUN 16 mg/dL (8-22); CALCIUM 8.1 mg/dL (8.8-10.2); CHLORIDE 104 mmol/L (98-107); COSMO 281; POTASSIUM 3.6 mmol/L (3.5-5.1); SODIUM 141 mmol/L (136-145); TCO2 23 mmol/L (25-35)
--- NOTE | 2017-06-03 07:58 | Diag Imaging Result Doc PS360 ---
EXAM: CHEST-1 VIEW - 06/03/2017 HISTORY: SOB TECHNIQUE: Portable chest 0535 COMPARISON: 06/01/2017 FINDINGS: Heart size appears within normal limits. There are sternal wires from previous surgery again seen. Inspiration is deeper compared to prior exam. There is decreased atelectasis at the right base. There is mild perihilar infiltrate or atelectasis on the right. There are apparent COPD changes. There is no substantial pleural effusion or pneumothorax identified. IMPRESSION: Deeper inspiration compared to prior with decreased atelectasis at right base. There is mild perihilar infiltrate or atelectasis on the right. Electronically signed by Bj Potts 06/03/2017 7:56 AM
[2017-06-03] MEDS: LOVENOX SUBQ SCH ×2 (08:30→21:51)
[2017-06-03] MEDS: COLACE PO SCH ×3 (08:30→21:53)
[2017-06-03] MEDS: RAPAFLO PO SCH (08:31)
[2017-06-03] MEDS: TUMS PO SCH ×3 (08:31→18:32)
[2017-06-03] MEDS: COREG PO SCH (08:31)
[2017-06-03] MEDS ORDERED: D5 1/2 NS 1,000 ML IV SCH (10:38)
[2017-06-03] MEDS: ASPIRIN PO SCH (11:31)
[2017-06-03] MEDS ORDERED: NS 1,000 ML IV SCH (11:35)
--- NOTE | 2017-06-03 11:45 | PROGRESS NOTE ---
DATE: 06/03/2017 SUBJECTIVE: The patient is more lethargic this morning. He does not respond to verbal stimuli but does respond to physical stimuli. Does not appear to be in any distress. OBJECTIVE: Vital Signs: Blood pressure 100/70, heart rate 94 and regular. Oxygen saturation 100% on nasal cannula oxygen at 2 L. HEENT: Mucous membranes are dry. Neck: Supple without jugular venous distention. Chest: Clear to auscultation. Cardiac: Examination reveals a regular rate and rhythm with a grade 2 systolic murmur at the right upper sternal border. No gallop could be appreciated. Extremities: There is no evidence of peripheral edema. IMPRESSION: 1. Respiratory failure. 2. Prior aortic valve replacement 18 years ago with a mechanical prosthesis. Echocardiography suggest functional aortic stenosis. 3. Atherosclerotic coronary disease with previous coronary bypass surgery 18 years ago along with his aortic valve replacement. 4. Status post recent cerebrovascular accident. RECOMMENDATIONS: 1. He appears clinically dry. Would enhance hydration intravenously. Would hold off on any further diuresis. 2. Switch carvedilol to metoprolol. 3. Continue supportive care and nutrition as tolerated. The patient has indicated to his family in the past that he is not willing to accept tube feeds. cc: MD Paul Mcfarland Jr, MD
--- NOTE | 2017-06-03 12:23 | PROGRESS NOTE ---
DATE: 06/03/2017 SUBJECTIVE: The patient is not speaking at this time. He has been somewhat lethargic. He has been on BiPAP but is off right at this time. He is not putting out a lot of urine in the last few hours. He was given Lasix yesterday. OBJECTIVE: Vital Signs: Blood pressure is 90/56, respirations 21, pulse 71, temperature 98.9 degrees Fahrenheit. Oxygen saturations 95% on 2 L per nasal cannula. HEENT: Normocephalic. EOMs intact. PERRLA. Throat clear. Lungs: Sound fairly clear to auscultation and percussion without rhonchi, rales, or wheezes. Chest x-ray shows a little improvement of the pneumonia. He has got a little right perihilar infiltrate. Heart: Sounds regular rate and rhythm without murmurs, gallops, or friction rubs at this time. Abdomen: Soft. Active bowel sounds, no organomegaly or tenderness. Neurological: The patient is not responding well at this time but will arouse but he is generally wanting to sleep. ASSESSMENT: 1. Cerebrovascular accident. 2. Pneumonia. 3. Coagulopathy. Patient back on Lovenox. 4. Hypotension. 5. Possible early dehydration. BUN and creatinine are normal. He has not had much urine output and blood pressure is low. PLAN: We will give him some IV fluids slowly, continue with care. cc: Paul More Jr, MD
[2017-06-03] MEDS: NS 1,000 ML IV SCH ×2 (18:32→21:57)
[2017-06-03] MEDS: LOPRESSOR PO SCH (21:51)
[2017-06-03] MEDS: SEROQUEL PO SCH (21:58)
[2017-06-04] MEDS: ZOSYN 3.375 GM/NS 3.375 GM/50 ML IVPB IV SCH ×3 (02:53→18:32)
[2017-06-04] MEDS: DUONEB (A & A) INH SCH ×6 (03:28→23:25)
[2017-06-04] MEDS: NS 1,000 ML IV SCH ×2 (05:38→15:43)
[2017-06-04 06:26] LABS: INR 1.2; PROTIME 12.7 Seconds (9.2-11.7)
[2017-06-04 06:37] LABS: CALCIUM 8.5 mg/dL (8.8-10.2); POTASSIUM 4.1 mmol/L (3.5-5.1)
[2017-06-04] MEDS: COLACE PO SCH ×3 (09:36→21:26)
[2017-06-04] MEDS: TUMS PO SCH ×4 (09:36→18:17)
[2017-06-04] MEDS: ASPIRIN PO SCH ×2 (09:36→11:14)
[2017-06-04] MEDS: LOPRESSOR PO SCH ×3 (09:36→21:27)
[2017-06-04] MEDS: LOVENOX SUBQ SCH ×2 (09:44→21:27)
--- NOTE | 2017-06-04 09:44 | PROGRESS NOTE ---
DATE: 06/04/2017 SUBJECTIVE: Patient right now is asleep and on BiPAP. There are times in the afternoons when he wakes up and has tried carry on a little bit of a conversation. He has had some hypotension and blood pressure this morning was 95/63. Last checked and put on the computer was 109/86 so it has varied some. I am giving a little bit of IV fluids. PHYSICAL EXAMINATION: Vital Signs: Temperature is 97.4 degrees Fahrenheit, pulse 95, respirations 19. HEENT: Essentially normal. Lungs: Clear to auscultation and percussion without rhonchi, rales, or wheezes at this time. Heart: Regular rate rhythm without murmurs, gallops, or friction rubs. Abdomen: Soft. Active bowel sounds. No organomegaly or tenderness. Neurologic: Examination difficult to assess while he is asleep. LABORATORY DATA: Chemistry profile essentially normal. For some reason, a CBC was canceled. His INR was 1.2. Potassium is better. ASSESSMENT: 1. Cerebrovascular accident. 2. Congestive heart failure. 3. Respiratory distress. 4. Coagulopathy. 5. Hypokalemia. PLAN: Continue support. I did talk with a family member this morning. He is going to relate some of the findings to his sons. cc: Paul More Jr, MD
[2017-06-04] MEDS ORDERED: LASIX IV ONE (11:41)
[2017-06-04 11:53] LABS: MANUAL DIFF NEEDED? NO
[2017-06-04 11:58] LABS: BASO% 0.4 % (0.0-0.8); EOS# 0.17 X1000 (0.0-0.7); EOS% 1.5 % (0.0-10.0); HEMATOCRIT 42.2 % (42.0-52.0); HEMOGLOBIN 12.9 g/dL (14.0-18.0); IMM GRAN# 0.14 X1000 (0.0-0.04); IMM GRAN% 1.2 % (0.0-0.5); LYMPH# 1.07 X1000 (1.2-3.4); LYMPH% 9.3 % (20.5-51.1); MCH 30.3 PG (27-31); MCHC 30.6 g/dL (33-37); MCV 99.1 FL (81-99); MONO% 7.8 % (1.7-9.3); NEUT% 79.8 % (42.2-75.2); PLT 302 X1000 (130-400); RBC 4.26 XMIL (4.7-6.1)
[2017-06-04] MEDS: MORPHINE IV PRN (17:31)
[2017-06-04] MEDS: D5W 1,000 ML IV SCH (21:26)
[2017-06-04] MEDS: COUMADIN PO SCH (21:26)
[2017-06-04] MEDS: SEROQUEL PO SCH (21:26)
[2017-06-05] MEDS: ZOSYN 3.375 GM/NS 3.375 GM/50 ML IVPB IV SCH ×3 (02:55→18:26)
[2017-06-05] MEDS: MORPHINE IV PRN ×3 (02:55→16:09)
[2017-06-05] MEDS: DUONEB (A & A) INH SCH ×6 (03:34→22:38)
[2017-06-05 07:12] LABS: MANUAL DIFF NEEDED? NO
[2017-06-05 07:17] LABS: BASO% 0.5 % (0.0-0.8); EOS# 0.18 X1000 (0.0-0.7); EOS% 1.7 % (0.0-10.0); HEMATOCRIT 39.6 % (42.0-52.0); HEMOGLOBIN 12.1 g/dL (14.0-18.0); IMM GRAN# 0.12 X1000 (0.0-0.04); IMM GRAN% 1.1 % (0.0-0.5); LYMPH# 0.58 X1000 (1.2-3.4); LYMPH% 5.4 % (20.5-51.1); MCH 30.2 PG (27-31); MCHC 30.6 g/dL (33-37); MCV 98.8 FL (81-99); MONO# 0.75 X1000 (0.11-0.59); MPV 9.6 FL (7.4-10.4); NEUT% 84.3 % (42.2-75.2); PLT 258 X1000 (130-400); RBC 4.01 XMIL (4.7-6.1)
--- NOTE | 2017-06-05 07:27 | Diag Imaging Result Doc PS360 ---
EXAM: CHEST-PORTABLE INDICATION: abnormal exam TECHNIQUE: One view COMPARISON: 06/03/2017 FINDINGS: Bilateral infiltrates in the perihilar regions and lung bases have worsened during the interval. This likely represents worsening edema. Cardiac silhouette is stable. IMPRESSION: Worsening bilateral infiltrates as described. Electronically signed by Iban Nair 06/05/2017 7:24 AM
[2017-06-05 07:29] LABS: INR 1.26; PROTIME 13.4 Seconds (9.2-11.7)
[2017-06-05 08:01] LABS: POTASSIUM 3.5 mmol/L (3.5-5.1)
[2017-06-05] MEDS: ASPIRIN PO SCH (08:10)
[2017-06-05] MEDS: TUMS PO SCH ×3 (08:10→16:09)
[2017-06-05] MEDS: COLACE PO SCH ×2 (08:10→20:50)
[2017-06-05] MEDS: LOPRESSOR PO SCH ×2 (08:13→21:04)
[2017-06-05] MEDS: LOVENOX SUBQ SCH ×2 (08:16→20:51)
[2017-06-05] MEDS ORDERED: LASIX IV ONE (08:53)
[2017-06-05 09:37] LABS: ALLEN TEST YES; BE -1.6 mmoll (-3.0-3.0); BLOOD TYPE ARTERIAL; DRAW SITE R RADIAL; METHB 1.2 % (0.0-1.5); O2(CT) 16.9 mL/dL (15.0-23.0); PCO2(98.6) 29 mmHg (35-45); PO2(98.6) 87 mmHg (60-100); SAMPLE BLOOD; SAO2 98.6 % (95.0-100.0); THB 12.5 g/dL (11.5-17.4); pH(98.6) 7.47 (7.35-7.45)
[2017-06-05 09:38] LABS: MODALITY BI PAP
[2017-06-05] MEDS: D5W 1,000 ML IV SCH (10:55)
--- NOTE | 2017-06-05 11:31 | PROGRESS NOTE ---
DATE: 06/05/2017 SUBJECTIVE: The patient says he feels worse. He is not breathing as well. He is off the BiPAP at this time. Chest x-ray shows worsening pulmonary edema. Blood pressure has also been a little low at 89/70. OBJECTIVE: Vital Signs: Temperature is 97.7 degrees Fahrenheit, pulse rate is 97, respirations 14, blood pressure 89/70, O2 saturation when he was on the BiPAP was 99-100% but was in the low 90s when he is off the BiPAP. HEENT: He is normocephalic. Lungs: Have scattered rales. Heart: Slightly irregular without murmurs, gallops, or friction rubs. Abdomen: Soft. Active bowel sounds. No organomegaly or tenderness. Neurologic Examination: The patient is anxious and a little confused but alert. ASSESSMENT: 1. Cerebrovascular accident. 2. Congestive heart failure with pulmonary edema. 3. Respiratory distress. 4. Coagulopathy. 5. Hypokalemia, resolved. 6. Hypotension. PLAN: We will give Lasix 40 mg IV. May have to use pressor agents if the blood pressure goes lower. We will get a blood gas. cc: Paul More Jr, MD
[2017-06-05] MEDS: LEVOPHED 8 MG in D5 1/2 NS 250 ML IV SCH (13:59)
[2017-06-05] MEDS: SEROQUEL PO SCH (20:50)
[2017-06-05] MEDS: COUMADIN PO SCH (20:50)
[2017-06-06] MEDS: ZOSYN 3.375 GM/NS 3.375 GM/50 ML IVPB IV SCH ×3 (02:19→20:00)
[2017-06-06] MEDS: D5W 1,000 ML IV SCH ×2 (02:19→15:54)
[2017-06-06] MEDS: DUONEB (A & A) INH SCH ×6 (03:40→23:17)
[2017-06-06 06:47] LABS: INR 1.2; PROTIME 12.7 Seconds (9.2-11.7)
[2017-06-06] MEDS: ASPIRIN PO SCH (08:28)
[2017-06-06] MEDS: TUMS PO SCH ×3 (08:28→16:44)
[2017-06-06] MEDS: COLACE PO SCH ×2 (08:28→20:01)
[2017-06-06] MEDS: LOVENOX SUBQ SCH ×2 (08:33→20:08)
[2017-06-06] MEDS: LOPRESSOR PO SCH ×2 (08:34→20:02)
--- NOTE | 2017-06-06 10:07 | PROGRESS NOTE ---
DATE: 06/06/2017 SUBJECTIVE: The patient is awake, but not speaking at this time, as he is on BiPAP. He is alert. I asked him if he was hurting anywhere and he shook his head no. When he was taken off BiPAP a little earlier, he did not do well. He became very short of breath, could not tolerate it for very long, and was placed back on BiPAP. Chest x-ray yesterday did show worsening of his pulmonary edema. He was given Lasix, but became hypotensive. He is now on Levophed to maintain his blood pressure. OBJECTIVE: Vital Signs: Blood pressure is 92/49, respirations 18, pulse 83, temperature 98.2 degrees Fahrenheit, and oxygen saturation on BiPAP is 96%. HEENT: Normocephalic. Lungs: Fairly clear to auscultation at this time. Heart: Regular rate and rhythm, without murmurs, gallops, or friction rubs, other than I can hear his mechanical heart valve. Abdomen: Soft. Active bowel sounds. No organomegaly or tenderness. Neurologic: Essentially unchanged. ASSESSMENT: 1. Cerebrovascular accident. 2. Congestive heart failure. 3. Coronary artery disease. 4. Respiratory distress. 5. Hypotension. 6. Coagulopathy, now on Lovenox. I did talk with 2 family members in the room with him today. cc: aPul More Jr, MD
[2017-06-06] MEDS: LEVOPHED 8 MG in D5 1/2 NS 250 ML IV SCH (12:37)
[2017-06-06] MEDS: COUMADIN PO SCH (20:01)
[2017-06-06] MEDS: SEROQUEL PO SCH (20:01)
[2017-06-07] MEDS: DUONEB (A & A) INH SCH ×6 (03:11→23:15)
[2017-06-07] MEDS: D5W 1,000 ML IV SCH ×2 (04:00→18:16)
[2017-06-07] MEDS: ZOSYN 3.375 GM/NS 3.375 GM/50 ML IVPB IV SCH ×3 (04:01→20:40)
[2017-06-07] MEDS: LEVOPHED 8 MG in D5 1/2 NS 250 ML IV SCH ×2 (04:01→18:18)
[2017-06-07 04:57] LABS: ALLEN TEST YES; BE -2.2 mmoll (-3.0-3.0); BLOOD TYPE ARTERIAL; DRAW SITE R RADIAL; MODALITY BI PAP; O2(CT) 17.8 mL/dL (15.0-23.0); PCO2(98.6) 25 mmHg (35-45); PO2(98.6) 132 mmHg (60-100); SAMPLE BLOOD; SAO2 99.7 % (95.0-100.0); THB 12.9 g/dL (11.5-17.4)
[2017-06-07 05:03] LABS: MANUAL DIFF NEEDED? NO
[2017-06-07 05:05] LABS: BASO% 0.6 % (0.0-0.8); EOS# 0.27 X1000 (0.0-0.7); EOS% 2.7 % (0.0-10.0); HEMATOCRIT 39.3 % (42.0-52.0); HEMOGLOBIN 12.4 g/dL (14.0-18.0); IMM GRAN# 0.09 X1000 (0.0-0.04); IMM GRAN% 0.9 % (0.0-0.5); LYMPH# 0.94 X1000 (1.2-3.4); LYMPH% 9.3 % (20.5-51.1); MCH 30.7 PG (27-31); MCHC 31.6 g/dL (33-37); MCV 97.3 FL (81-99); MONO# 0.75 X1000 (0.11-0.59); MONO% 7.4 % (1.7-9.3); MPV 9.6 FL (7.4-10.4); NEUT% 79.1 % (42.2-75.2); PLT 281 X1000 (130-400); RBC 4.04 XMIL (4.7-6.1)
[2017-06-07 05:11] LABS: INR 1.31
[2017-06-07 05:35] LABS: AGAP 12; BUN 22 mg/dL (8-22); CALCIUM 9.2 mg/dL (8.8-10.2); CHLORIDE 103 mmol/L (98-107); COSMO 286; POTASSIUM 2.9 mmol/L (3.5-5.1); SODIUM 141 mmol/L (136-145); TCO2 26 mmol/L (25-35)
--- NOTE | 2017-06-07 07:25 | Diag Imaging Result Doc PS360 ---
EXAM: CHEST-PORTABLE HISTORY: chf TECHNIQUE: AP portable erect at 0535 COMMENT: There is interstitial pulmonary edema. The heart size is within normal limits. There is probable small pleural effusions bilaterally. The pulmonary edema has worsened since 06/03/2017 but there has been no appreciable change since 06/05/2017. IMPRESSION: Pulmonary edema. Electronically signed by Quinton Glynn 06/07/2017 7:23 AM
[2017-06-07] MEDS: LOPRESSOR PO SCH ×2 (09:37→20:35)
[2017-06-07] MEDS: COLACE PO SCH ×2 (09:41→20:40)
[2017-06-07] MEDS: TUMS PO SCH ×3 (09:41→18:18)
[2017-06-07] MEDS: LOVENOX SUBQ SCH ×2 (09:41→20:52)
[2017-06-07] MEDS: ASPIRIN PO SCH (09:41)
--- NOTE | 2017-06-07 09:46 | PROGRESS NOTE ---
DATE: 06/07/2017 SUBJECTIVE: The patient is really not answering questions at this time. When he is taken off of his BiPAP, he decompensates very quickly. He is requiring Levophed for his blood pressure. He does have congestive heart failure and pulmonary edema. Family members were here and I talked with them for about 20 minutes, and they are going to tell the rest the family that his condition certainly is critical and seems to be worsening. OBJECTIVE: Vital Signs: Blood pressure is anywhere from 95-105/50-60 with respirations 17 on BiPAP and 26 off of BiPAP. Heart rate is irregular with a ventricular rate of 110 beats per minute. Temperature is 98.1 degrees Fahrenheit. O2 saturations 95% on BiPAP with 30% FiO2. Blood gas shows a 7.50 pH, pCO2 of 25, PO2 of 132. Potassium is down to 2.9. Rest of electrolytes essentially normal. HEENT: He is normocephalic. Lungs: Have scattered rales. Chest x-ray still shows pulmonary edema. Heart: Irregular, but appears to be PVCs. Abdomen: Soft. Active bowel sounds. No organomegaly or tenderness. Neurological exam: Patient is sleeping and only barely arousable. ASSESSMENT: 1. Cerebrovascular accident. 2. Decompensated congestive heart failure. 3. Coagulopathy, improved. 4. Hypotension. 5. Hypokalemia. PLAN: Will replace potassium. Cardiology and pulmonology are both seen. Condition is worsening and prognosis is guarded. cc: Paul More Jr, MD
[2017-06-07] MEDS: POTASSIUM CHLORIDE 20 MEQ/SWI 20 MEQ/100 ML IVPB IV SCH ×4 (09:50→20:41)
[2017-06-07] MEDS: MORPHINE IV PRN ×3 (09:57→19:30)
[2017-06-07] MEDS ORDERED: POTASSIUM CHLORIDE 40 MEQ/SWI 40 MEQ/100 ML IVPB IV SCH (10:00)
[2017-06-07] MEDS: LASIX IV SCH ×2 (11:45→20:40)
[2017-06-07] MEDS: HALDOL IM PRN (16:03)
[2017-06-07] MEDS: COUMADIN PO SCH (20:40)
[2017-06-07] MEDS: SEROQUEL PO SCH (20:51)
[2017-06-08] MEDS: HALDOL IM PRN (01:43)
[2017-06-08] MEDS: MORPHINE IV PRN ×3 (01:43→18:19)
[2017-06-08] MEDS: DUONEB (A & A) INH SCH ×6 (03:35→23:14)
[2017-06-08] MEDS: ZOSYN 3.375 GM/NS 3.375 GM/50 ML IVPB IV SCH ×3 (03:58→20:15)
[2017-06-08] MEDS: LASIX IV SCH (03:58)
[2017-06-08 04:27] LABS: ALLEN TEST YES; BE -0.4 mmoll (-3.0-3.0); BLOOD TYPE ARTERIAL; DRAW SITE R RADIAL; METHB 1.1 % (0.0-1.5); O2(CT) 16.7 mL/dL (15.0-23.0); PCO2(98.6) 30 mmHg (35-45); PO2(98.6) 89 mmHg (60-100); SAMPLE BLOOD; SAO2 98.6 % (95.0-100.0); THB 12.4 g/dL (11.5-17.4); pH(98.6) 7.48 (7.35-7.45)
[2017-06-08 04:29] LABS: MODALITY BI PAP
[2017-06-08 06:25] LABS: BASO% 0.2 % (0.0-0.8); EOS# 0.03 X1000 (0.0-0.7); EOS% 0.2 % (0.0-10.0); HEMATOCRIT 37.5 % (42.0-52.0); HEMOGLOBIN 11.9 g/dL (14.0-18.0); IMM GRAN# 0.07 X1000 (0.0-0.04); IMM GRAN% 0.6 % (0.0-0.5); LYMPH# 0.72 X1000 (1.2-3.4); LYMPH% 5.7 % (20.5-51.1); MANUAL DIFF NEEDED? YES; MCH 30.7 PG (27-31); MCHC 31.7 g/dL (33-37); MCV 96.9 FL (81-99); MONO# 0.84 X1000 (0.11-0.59); MONO% 6.6 % (1.7-9.3); MPV 10.6 FL (7.4-10.4); NEUT% 86.7 % (42.2-75.2); PLT 240 X1000 (130-400); RBC 3.87 XMIL (4.7-6.1)
[2017-06-08 06:32] LABS: INR 1.51; PROTIME 16.3 Seconds (9.2-11.7)
[2017-06-08 06:43] LABS: CALCIUM 8.1 mg/dL (8.8-10.2); POTASSIUM 3.6 mmol/L (3.5-5.1)
[2017-06-08 07:01] LABS: BANDS 2 % (0-1); HYPOCHROM OCCASIONAL; LYMPHS 10 % (21-51); MONO 6 % (1-9)
--- NOTE | 2017-06-08 07:26 | Diag Imaging Result Doc PS360 ---
EXAM: CHEST-PORTABLE INDICATION: abnormal exam TECHNIQUE: One view COMPARISON: 06/07/2017 FINDINGS: Bilateral mid and lower lung zone infiltrates most compatible with edema are essentially stable, worse on the right. There is suggestion of small pleural effusions similar to the previous study. No new consolidation is appreciated cardiac silhouette is stable. IMPRESSION: Essentially stable chest. Electronically signed by Iban Nair 06/08/2017 7:23 AM
[2017-06-08] MEDS: D5W 1,000 ML IV SCH (07:35)
[2017-06-08] MEDS: LEVOPHED 8 MG in D5 1/2 NS 250 ML IV SCH (07:35)
[2017-06-08] MEDS: LOPRESSOR PO SCH ×2 (08:50→20:26)
[2017-06-08] MEDS: TUMS PO SCH ×3 (08:52→16:18)
[2017-06-08] MEDS: ASPIRIN PO SCH (08:53)
[2017-06-08] MEDS: COLACE PO SCH ×2 (08:53→20:25)
[2017-06-08] MEDS: LOVENOX SUBQ SCH ×2 (08:57→20:26)
--- NOTE | 2017-06-08 12:50 | PROGRESS NOTE ---
DATE: 06/08/2017 SUBJECTIVE: The patient is on BiPAP but he is awake. I asked him if he was having any pain and he said no. Apparently, he comes in and out of consciousness but can not tolerate being off the BiPAP for more than a few seconds. However, blood gas was stable on the BiPAP with 40% FiO2. OBJECTIVE: Vital Signs: Blood pressure is running from 80-92 on his systolic pressure, pulse 104, respirations 22, temperature 97.5 degrees Fahrenheit. HEENT: He is normocephalic. Lungs: Sound fairly clear to auscultation. However, chest x-ray shows continued pulmonary edema. How much of this is pneumonia and how much is just congestive heart failure with pulmonary edema his unclear, but we are actually covering him for both. Heart: Irregular. It is hard to tell whether he is in atrial fibrillation at times. He does have an irregularly irregular heart rate but occasionally I can see what looks like P waves. Abdomen: Soft. Active bowel sounds. No organomegaly or tenderness. Neurological: Patient is confused but does become alert at times. ASSESSMENT: 1. Cerebrovascular accident. 2. Congestive heart failure. 3. Hypotension. 4. Questionable pneumonia. 5. Hypokalemia. Now, potassium is back up to 3.6. 6. Patient also has chronic obstructive pulmonary disease. PLAN: We will continue to keep him comfortable. We will support. He is a DNR level 1. Prognosis is poor. cc: Paul More Jr, MD
--- NOTE | 2017-06-08 13:06 | PROGRESS NOTE ---
DATE: 06/08/2017 ADDENDUM: Family members were here when I made rounds and I talked with them extensively. They are aware of the patient's critical condition, but they want him made comfortable, did not want him on a ventilator. A son was here and another family member. cc: Paul More Jr, MD
[2017-06-08] MEDS: SEROQUEL PO SCH (20:25)
[2017-06-08] MEDS: COUMADIN PO SCH (20:26)
[2017-06-09] MEDS: HALDOL IM PRN (00:32)
[2017-06-09] MEDS: MORPHINE IV PRN ×3 (00:39→16:30)
[2017-06-09] MEDS: DUONEB (A & A) INH SCH ×4 (03:27→15:56)
[2017-06-09] MEDS: ZOSYN 3.375 GM/NS 3.375 GM/50 ML IVPB IV SCH ×3 (03:30→22:01)
[2017-06-09 05:33] LABS: BASO% 0.1 % (0.0-0.8); EOS# 0.04 X1000 (0.0-0.7); EOS% 0.4 % (0.0-10.0); HEMATOCRIT 39.1 % (42.0-52.0); HEMOGLOBIN 12.2 g/dL (14.0-18.0); IMM GRAN# 0.04 X1000 (0.0-0.04); IMM GRAN% 0.4 % (0.0-0.5); LYMPH# 0.44 X1000 (1.2-3.4); LYMPH% 4.5 % (20.5-51.1); MANUAL DIFF NEEDED? YES; MCH 30.5 PG (27-31); MCHC 31.2 g/dL (33-37); MCV 97.8 FL (81-99); MONO# 0.52 X1000 (0.11-0.59); MONO% 5.3 % (1.7-9.3); MPV 10.5 FL (7.4-10.4); NEUT% 89.3 % (42.2-75.2); PLT 231 X1000 (130-400)
[2017-06-09 05:40] LABS: INR 1.8; PROTIME 19.6 Seconds (9.2-11.7)
[2017-06-09 05:53] LABS: CALCIUM 8.7 mg/dL (8.8-10.2); POTASSIUM 3.6 mmol/L (3.5-5.1)
[2017-06-09 06:27] LABS: BANDS 1 % (0-1); LYMPHS 6 % (21-51); MONO 1 % (1-9); POLYCHROM OCCASIONAL
[2017-06-09] MEDS ORDERED: NS 1,000 ML IV SCH (06:49)
--- NOTE | 2017-06-09 07:38 | Diag Imaging Result Doc PS360 ---
EXAM: FLAT/UPRIGHT ABD/1 VIEW CHEST HISTORY: pulm edema and abd distention TECHNIQUE: Portable upright AP COMPARISON: 06/08/2017 FINDINGS: Increased interstitial markings persist. The heart remains mildly enlarged. Sternal wires are present. I believe there are small pleural effusions. The overall appearance of the chest is similar to that of the prior exam. IMPRESSION: Stable chest. Electronically signed by Benjamin Foley 06/09/2017 7:36 AM
--- NOTE | 2017-06-09 07:44 | PROGRESS NOTE ---
DATE: 06/09/2017 SUBJECTIVE: The patient is not communicating at this time. There have been times when he will wake up some. He has been confused. He is pulling his leads off at times. OBJECTIVE: Blood pressure ranges from about 80-100 systolic, pulse is 105, temp 97.2 degrees Fahrenheit. O2 saturation on BiPAP is 93% on 40% FiO2. Weight is 220 pounds 4.8 ounces.HEENT: Normocephalic. Lungs: Sound fairly clear to auscultation and percussion without rhonchi, rales, or wheezes. Chest x-ray yesterday still showed some pulmonary edema. Heart: Regular rate and rhythm to slightly irregular at times. Abdomen: Distended with active bowel sounds and more distended than usual. Neurological: Essentially unchanged. Patient is confused. ASSESSMENT: 1. Cerebrovascular accident. 2. Congestive heart failure. 3. Chronic obstructive pulmonary disease. 4. Respiratory failure. 5. Distended abdomen. PLAN: We will get chest x-ray and abdominal film. We will restart him on IV fluids slowly as his urine output has gone down. cc: Paul More Jr, MD
[2017-06-09] MEDS: ASPIRIN PO SCH ×2 (08:06→08:24)
[2017-06-09] MEDS: TUMS PO SCH ×4 (08:06→16:33)
[2017-06-09] MEDS: COLACE PO SCH ×3 (08:06→20:26)
[2017-06-09] MEDS: NS 1,000 ML IV SCH (08:06)
[2017-06-09] MEDS: LOVENOX SUBQ SCH ×2 (08:07→20:26)
[2017-06-09] MEDS: LOPRESSOR PO SCH ×2 (08:08→20:27)
--- NOTE | 2017-06-09 10:35 | PROGRESS NOTE ---
DATE: 06/09/2017 CHIEF COMPLAINT: Stroke, aphasia, shortness of breath. SUBJECTIVE: Mr. Freitas appears to be more obtunded today. He is not in distress. Right now, he is getting a BiPAP mask for respiratory support. OBJECTIVE: Blood pressure has been running low, 82/63 to as low as 65/50. Dr. More has ordered IV fluids at this time. Heart rate is 105, temperature 97.3, respirations 23. He is awake but is not following commands. He is somewhat confused, not talking. BiPAP mask is in place. HEENT: No jugular venous distention. Chest: Diminished breath sounds with some chest cage muscle assistance. Heart sounds are slightly irregular. Closing click of aortic valve noted. Abdomen is obese, nontender. Extremities showed no edema. Neurologic: He is confused, aphasic. Cranial nerves are hard to evaluate right now. He does not quite follow commands. DIAGNOSTIC DATA: His laboratory work today shows hemoglobin is 12.2, hematocrit 39.1, white count 9840. INR is 1.8. Sodium is 142, potassium 3.6, BUN is 37, creatinine 1.3. IMPRESSION: 1. The patient has suffered a stroke. He has global aphasia. 2. Aortic valve replacement, probably partial thrombosis of the mechanical aortic valve. 3. History of coronary heart disease. 4. Hypotension. This probably relates to fluid depletion, volume contraction. RECOMMENDATIONS: Dr. More has ordered IV fluids. I concur with that decision. Overall, the patient's hospital course has been very prolonged, and he is at high risk of additional complications. He has been made DNR. We will follow him along. cc: MD Paul Resendez Jr, MD
[2017-06-09] MEDS: COUMADIN PO SCH (20:26)
[2017-06-09] MEDS: SEROQUEL PO SCH (20:26)
[2017-06-10] MEDS: NS 1,000 ML IV SCH ×3 (00:36→17:04)
[2017-06-10] MEDS: MORPHINE IV PRN ×5 (02:47→22:19)
[2017-06-10] MEDS: HALDOL IM PRN ×2 (02:47→14:58)
[2017-06-10] MEDS: DUONEB (A & A) INH SCH ×6 (03:34→23:11)
[2017-06-10] MEDS: ZOSYN 3.375 GM/NS 3.375 GM/50 ML IVPB IV SCH ×3 (03:48→19:18)
[2017-06-10 07:04] LABS: INR 1.77; PROTIME 19.3 Seconds (9.2-11.7)
--- NOTE | 2017-06-10 07:39 | PROGRESS NOTE ---
DATE: 06/10/2017 SUBJECTIVE: The patient is not talking at this time. He is more obtunded. He is requiring the BiPAP. OBJECTIVE: Vital signs: Blood pressure was 92/62 earlier this morning but it is 111/70 now. Respirations are 17. Pulse is 97, slightly irregular. Temp 97.6 degrees Fahrenheit. HEENT: Normocephalic. Lungs: Sound fairly clear to auscultation. Heart: Slightly irregular. You can hear his aortic valve clicking. Abdomen: Distended. Abdominal film shows dilated loops of bowel consistent with either ileus or possible obstruction. The patient is not a surgical candidate. Neurological: Patient is barely responsive at this time. ASSESSMENT: 1. Status post cerebrovascular accident. 2. Respiratory distress. 3. Pulmonary edema. 4. Congestive heart failure. 5. Coagulopathy, resolved. 6. Ileus versus bowel obstruction. 7. Hypotension, now somewhat improved. PLAN: Will transfer to [facility]. We will try to put an NG tube down to low suction. Get another x- ray in the morning of his abdomen but there is not much else that can be done at this point. We will try to keep him comfortable. cc: Paul More Jr, MD
[2017-06-10] MEDS: LOVENOX SUBQ SCH ×2 (08:41→19:18)
[2017-06-10] MEDS: ASPIRIN PO SCH (08:43)
[2017-06-10] MEDS: COLACE PO SCH (08:43)
[2017-06-10] MEDS: LOPRESSOR PO SCH (08:43)
[2017-06-10] MEDS: TUMS PO SCH ×3 (08:44→17:04)
[2017-06-10] MEDS ORDERED: VITAMIN D PO SCH (10:12)
[2017-06-10] MEDS ORDERED: COUMADIN PO SCH (10:12)
[2017-06-10] MEDS ORDERED: ASPIRIN EC PO SCH (10:12)
[2017-06-10] MEDS ORDERED: LOVENOX SUBQ SCH (10:12)
[2017-06-10] MEDS ORDERED: COREG CR PO SCH (10:12)
--- NOTE | 2017-06-10 10:37 | Diag Imaging Result Doc PS360 ---
EXAM: CHEST-PORTABLE HISTORY: NG tube placement TECHNIQUE: Portable upright AP COMPARISON: 06/09/2017 FINDINGS: There is a nasogastric tube overlying the esophagus and stomach. There are infiltrates in the lower lungs. No free air beneath the diaphragm. There are air distended loops of bowel the upper abdomen. IMPRESSION: Nasogastric tube enters the stomach. Electronically signed by Benjamin Foley 06/10/2017 10:34 AM
[2017-06-10] MEDS: HYDROCHLOROTHIAZIDE PO SCH (11:18)
[2017-06-10] MEDS: IMDUR PO SCH (11:18)
[2017-06-10] MEDS: NORVASC PO SCH (11:18)
[2017-06-10] MEDS: RAPAFLO PO SCH (11:19)
[2017-06-10] MEDS: OSCAL 500 + D PO SCH (11:19)
[2017-06-10] MEDS: ULTRAM PO SCH (11:19)
--- NOTE | 2017-06-10 11:59 | Diag Imaging Result Doc PS360 ---
EXAM: FLAT/UPRIGHT ABD/1 VIEW CHEST HISTORY: tube placement TECHNIQUE: Portable upright AP COMPARISON: Compared to films taken earlier. FINDINGS: Sternal wires are present. A nasogastric tube overlies the esophagus. Due to the technique, unable to see the distal portion. There are diffuse bilateral infiltrates. These are most pronounced in the right lung base. Heart is not enlarged. There are small pleural effusions. IMPRESSION: Diffuse bilateral infiltrates. A nasogastric tube overlies the esophagus. Electronically signed by Benjamin Foley 06/10/2017 11:56 AM
[2017-06-10] MEDS: DOMEBORO PACKET TOP SCH (17:03)
[2017-06-11] MEDS: SEROQUEL PO SCH ×2 (00:15→21:04)
[2017-06-11] MEDS: COUMADIN PO SCH ×2 (00:16→21:03)
[2017-06-11] MEDS: COLACE PO SCH ×3 (00:16→21:03)
[2017-06-11] MEDS: LOPRESSOR PO SCH ×3 (00:17→21:03)
[2017-06-11] MEDS: ULTRAM PO SCH ×3 (00:18→21:04)
[2017-06-11] MEDS: LOVENOX SUBQ SCH ×4 (00:18→20:43)
[2017-06-11] MEDS: MORPHINE IV PRN ×8 (00:26→23:58)
[2017-06-11] MEDS: NS 1,000 ML IV SCH ×3 (02:04→17:13)
[2017-06-11] MEDS: DUONEB (A & A) INH SCH ×6 (03:23→23:22)
--- NOTE | 2017-06-11 03:51 | PROGRESS NOTE ---
DATE: 06/10/2017 CHIEF COMPLAINT: Shortness of breath, aphasia. SUBJECTIVE: Mr. Freitas remains obtunded. He is not complaining of any pain at this time. He is about to be transferred to [facility]. The patient has remained for the most part in what appears to be sinus rhythm with premature beats. His INR has not gone up. It is 1.77. Hemoglobin 12.2, white count 9840. Sodium 141, BUN 37, creatinine 1.1. OBJECTIVE: Vital signs: Blood pressure 98/78, temperature 98.4, pulse 94, respirations 26. General: He is obtunded with a BiPAP system. He has an NG tube in place. His skin is cold. HEENT: Unremarkable. Chest: Diminished breath sounds bilaterally. Cardiac: Heart sounds re irregular. Closing click of aortic valve is noted. Abdomen: Nontender. Distended. bowel sounds. Extremities: Cold. Diminished pulses. LABORATORY DATA: Chest x-ray was done today. We do not have any official report, however, the nonexpert review of the film shows dilatation of the bowel, possible ileus. There is no air under the diaphragm. IMPRESSION: 1. The patient has suffered an embolic stroke with resultant aphasia. 2. Status post mechanical aortic valve replacement on long-term anticoagulation. The patient may have developed partial thrombosis of his valve. 3. Hemodynamic instability with hypotension that has improved with IV fluids. 4. History of coronary heart disease. RECOMMENDATIONS: At this point in time, the patient's condition seems to be generally deteriorating. He is DNR Level I. Consideration should be given to switching focus of care to hospice. Thank you for the opportunity to participate in his evaluation. cc: MD Paul Resendez Jr, MD
[2017-06-11] MEDS: ZOSYN 3.375 GM/NS 3.375 GM/50 ML IVPB IV SCH ×3 (04:45→20:44)
[2017-06-11] MEDS: HALDOL IM PRN ×2 (05:07→16:41)
[2017-06-11 05:17] LABS: INR 2.37; PROTIME 26.3 Seconds (9.2-11.7)
[2017-06-11] MEDS: ASPIRIN PO SCH (08:55)
[2017-06-11] MEDS: DOMEBORO PACKET TOP SCH (08:56)
[2017-06-11] MEDS: TUMS PO SCH ×3 (08:56→16:21)
[2017-06-11] MEDS: RAPAFLO PO SCH (08:57)
[2017-06-11] MEDS: NORVASC PO SCH (08:57)
[2017-06-11] MEDS: OSCAL 500 + D PO SCH (08:57)
[2017-06-11] MEDS: IMDUR PO SCH (08:58)
[2017-06-11] MEDS: HYDROCHLOROTHIAZIDE PO SCH (08:59)
--- NOTE | 2017-06-11 10:03 | PROGRESS NOTE ---
DATE: 06/11/2017 SUBJECTIVE: The patient is not responsive this morning. He is on his BiPAP. OBJECTIVE: Vital Signs: Blood pressure is 102/62, respirations 18, pulse 87, temperature 96.9 degrees Fahrenheit. HEENT: He is normocephalic. Lungs: Fairly clear to auscultation. Heart: Slightly irregular. Abdomen: Distended with high-pitched sounds consistent with either obstruction or an ileus, though since he has bowel sounds and he is distended, and they are high- pitched, I favor obstruction clinically. Neurological Examination: Patient is just not responsive at this time. ASSESSMENT: 1. Cerebrovascular accident. 2. Congestive heart failure. 3. Bowel obstruction versus an ileus. 4. Status post aortic valve replacement. PLAN: We will support but condition is critical and prognosis is poor. cc: Paul More Jr, MD
--- NOTE | 2017-06-11 10:07 | Diag Imaging Result Doc PS360 ---
EXAM: FLAT/UPRIGHT ABD/1 VIEW CHEST HISTORY: ileus TECHNIQUE: Portable COMPARISON: 06/10/2017 FINDINGS: Chest: Sternal wires are present. Heart remains mildly prominent. There are increased interstitial markings diffusely in the lungs and there are small pleural effusions. Abdomen and pelvis: There is a nasogastric tube overlying the esophagus. Due to the technique unsure where the distal portion is located. I cannot tell if it enters the stomach. There are multiple dilated loops of bowel within the abdomen. No organomegaly. Mild scoliosis. IMPRESSION: Chest: No interval improvement Abdomen and pelvis: multiple air distended loops of bowel persist. I'm unsure as to the location of the distal nasogastric tube. Electronically signed by Benjamin Foley 06/11/2017 10:05 AM
[2017-06-12] MEDS: DUONEB (A & A) INH SCH ×2 (03:13→07:47)
[2017-06-12] MEDS: ZOSYN 3.375 GM/NS 3.375 GM/50 ML IVPB IV SCH (03:28)
[2017-06-12] MEDS: MORPHINE IV PRN ×9 (03:28→23:37)
[2017-06-12] MEDS: NS 1,000 ML IV SCH (03:28)
[2017-06-12 05:14] LABS: BASO% 0.1 % (0.0-0.8); HEMATOCRIT 36.8 % (42.0-52.0); HEMOGLOBIN 11.2 g/dL (14.0-18.0); IMM GRAN# 0.04 X1000 (0.0-0.04); IMM GRAN% 0.4 % (0.0-0.5); LYMPH# 0.47 X1000 (1.2-3.4); LYMPH% 4.2 % (20.5-51.1); MANUAL DIFF NEEDED? NO; MCH 30.5 PG (27-31); MCHC 30.4 g/dL (33-37); MCV 100.3 FL (81-99); MONO# 0.79 X1000 (0.11-0.59); MONO% 7.1 % (1.7-9.3); MPV 10.2 FL (7.4-10.4); NEUT% 88.2 % (42.2-75.2); PLT 274 X1000 (130-400); RBC 3.67 XMIL (4.7-6.1)
[2017-06-12 05:22] LABS: INR 2.75; PROTIME 30.8 Seconds (9.2-11.7)
[2017-06-12 05:27] LABS: CALCIUM 7.8 mg/dL (8.8-10.2); POTASSIUM 3.6 mmol/L (3.5-5.1)
[2017-06-12] MEDS ORDERED: SALINE LOCK IV FLUID XX ONE (08:48)
[2017-06-12 12:03] VITALS: BP 90/65
--- NOTE | 2017-06-12 15:14 | PROGRESS NOTE ---
DATE: 06/12/2017 SUBJECTIVE: The patient is unresponsive. He is somewhat hypotensive. I talked with his son who is his legal guardian and he and the family decided they want nothing further done for the patient except for him to be kept comfortable. I agree with this. The patient came in with a stroke and has developed congestive heart failure and now either a bowel obstruction or ileus. He is unresponsive. We have had several consultants look at him. He has had a mechanical valve placement. His heart just is not functioning well. He has several complications. Family wants everything stopped except for pain medications. OBJECTIVE: Blood pressure is 90/62, temperature is 96.7 degrees Fahrenheit, pulse 96 and slightly irregular. On BiPAP he is 100% O2 saturation on 15 L.HEENT: He is normocephalic. Lungs: Have a few scattered rales. Heart: Irregularly irregular. Abdomen: Distended with high tinkling bowel sounds. Neurological: Patient is unresponsive. PLAN: We will pullback everything but IV pain medications. It should be noted that the patient's creatinine is 2.4 so he is getting dehydrated or going into organ failure. Discussed stopping his Lovenox as well and family wants it stops as well. Prognosis poor. DIAGNOSES: 1. Cerebrovascular accident. 2. Congestive heart failure. 3. Bowel obstruction. 4. Renal failure. 5. Altered mental status. 6. Respiratory distress. cc: Paul More Jr, MD
[2017-06-13] MEDS: MORPHINE IV PRN ×10 (01:37→21:58)
--- NOTE | 2017-06-13 12:08 | PROGRESS NOTE ---
DATE: 06/13/2017 SUBJECTIVE: Patient is unresponsive. OBJECTIVE: Vital Signs: He is breathing on the BiPAP with O2 saturations 90% with 15 L. HEENT: Normal. Lungs: Sound fairly clear to auscultation. Heart: Slightly irregular. Abdomen: Distended, but somewhat soft. There are some high tinkling sounds consistent with obstruction. Last x-ray showed either obstruction or ileus. Neurologic: The patient is unresponsive at this time. DISCUSSION: I sat and talked with family a good bit about this. They do not want any more vital signs. They do not want anything but comfort measures including morphine and his BiPAP. We talked about even taking the BiPAP off, but he desaturates so quickly that he would probably pass away fairly soon after that and that is not exactly what they want either, so we will continue with the BiPAP. I think in the long run it will not make any difference, but I do not think the family wants to see him struggle with his breathing at this point and I concur. ASSESSMENT: 1. Cerebrovascular accident. 2. Respiratory distress. 3. Congestive heart failure. 4. Bowel obstruction. PLAN: Continue support for comfort care. cc: Paul More Jr, MD
[2017-06-14] MEDS: MORPHINE IV PRN ×10 (00:03→21:12)
--- NOTE | 2017-06-14 12:36 | PROGRESS NOTE ---
DATE: 06/14/2017 SUBJECTIVE: The patient is not responsive. He does have his eyes open. Family says he tried to respond a little bit yesterday, but was incoherent. For the most part, he has just been on his BiPAP and he has been struggling with his breathing to a certain extent. We have been trying to make him comfortable. OBJECTIVE: Vital signs: Vital signs have been stopped at the request of the family. HEENT: Normocephalic. Lungs: He has had some Emeterio-Raygoza breathing. Lungs are fairly clear to auscultation at this time. Heart: Slightly irregular. Abdomen: Soft, with active bowel sounds. It has gone down in size, so this makes me think that he did not have a bowel obstruction as much as he might have had an ileus, and that that is resolving. Family does not want any x- rays or any other lab work for confirmation. Neurologic: Patient is really nonresponsive. He is moving his extremities a little bit. ASSESSMENT: 1. Cerebrovascular accident. 2. Respiratory distress. 3. Status post aortic valve replacement. 4. Congestive heart failure. 5. Bowel obstruction versus ileus. PLAN: Patient is for comfort measures only at this time. cc: Paul More Jr, MD
[2017-06-14] MEDS: ATIVAN IV PRN ×2 (15:08→22:37)
[2017-06-15] MEDS: MORPHINE IV PRN ×12 (00:22→22:45)
--- NOTE | 2017-06-15 09:28 | PROGRESS NOTE ---
DATE: 06/15/2017 SUBJECTIVE: The patient is not responsive. He is struggling some with his breathing even on the BiPAP, but he has rested a little bit better through the night. The family said we added some Ativan to his regimen. OBJECTIVE: Vital Signs: We are not doing vital signs at the request of the family. HEENT: Normocephalic. Lungs: Have a few scattered rales. Heart: Slightly irregular. Abdomen: Soft and not distended anymore. Neurological exam: Patient is not responsive at this time. ASSESSMENT: 1. Cerebrovascular accident. 2. Congestive heart failure. 3. Respiratory distress. PLAN: The patient now on comfort measures only. cc: Paul More Jr, MD
[2017-06-15] MEDS: ATIVAN IV PRN (18:59)
[2017-06-16] MEDS: MORPHINE IV PRN ×6 (00:43→14:11)
[2017-06-16] MEDS: ATIVAN IV PRN (02:03)
--- NOTE | 2017-06-16 14:33 | PROGRESS NOTE ---
DATE: 06/16/2017 SUBJECTIVE: Patient remains with some mild work of breathing on BiPAP. He is in no discomfort. Family members in the room with him. OBJECTIVE: Vital Signs: Not being performed. Cardiovascular: Distant heart sounds. Lungs: Mild rhonchi, right greater than left. Extremities: No significant edema. ASSESSMENT: 1. Cerebrovascular accident. 2. Congestive heart failure. 3. Respiratory distress. 4. On comfort measures only. PLAN: Continue comfort care as is being performed. cc: MD Paul Collado Jr, MD
--- NOTE | 2017-06-20 07:08 | DISCHARGE SUMMARY ---
ADMISSION DATE: 05/10/2017 DISCHARGE DATE: 06/16/2017 FINAL DIAGNOSES: 1. Cerebrovascular accident. 2. Altered mental status. 3. Congestive heart failure. 4. Respiratory distress. 5. Coagulopathy. 6. Atrial fibrillation. 7. Status post aortic valve replacement. 8. Coronary artery disease. 9. Osteoporosis. 10. Hypertension. 11. Hypotension. 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 13. Chronic obstructive pulmonary disease. 14. Chronic pain syndrome. 15. Ileus versus bowel obstruction. CONSULTATIONS: 1. Dr. Yadav, Cardiology. 2. Dr. Casey of Neurology. 3. Dr. Toure Gastroenterology. 4. Dr. Mckeon Pulmonology. HISTORY OF PRESENT ILLNESS: The patient came in with altered mental status. CT scan showed questionable left cerebral hemisphere infarct. We repeated CT scan later which showed evolution of this CVA. Patient had confusion during most of his hospital stay. He had had biopsy of his prostate gland and had to come off of his Coumadin for that reason. The question is whether he through up a clot from his heart from aortic valve mechanical causing a CVA due to his being off of the blood thinner that is a risk with doing the procedure that patient was aware of. The patient then developed some respiratory distress and went into heart failure. Cardiology was consulted. The patient had a coronary artery disease. He had some arrhythmias that looked like he was in and out of atrial fibrillation at times. He was later anticoagulated but he developed a coagulopathy and that had to be reversed. He had a long hard course with this without much improvement as far as mental status. He then developed some respiratory distress with his congestive heart failure and just was not improving otherwise. He developed a distended abdomen. The question was whether he had a bowel obstruction or ileus. The abdomen did go down in time with nothing but an NG tube. Patient was not a surgical candidate. Patient did have some mild atherosclerotic disease of the distal common and internal carotid arteries bilaterally without hemodynamically significant lesions. The patient got progressively worse and was placed on BiPAP. He was in the intensive care unit for much of this time. Family decided that they wanted comfort measures. He was moved to the [facility] and eventually all measures were stopped including medications except for morphine. Family was by his side each time I visited on almost every visit. The patient just did not get any better with this and on 06/16/2017 at 3:44 in the afternoon from respiratory distress, congestive heart failure and underlying CVA. cc: Paul More Jr, MD MTDD
== END 2017-06-16 15:44 | disposition expired ==
LOC: ED 11:50 → 3N 15:40 → ICU 05-21 19:01 → 3S 06-10 10:11
PROVIDERS: ADMIT Emergency Medicine; ATTEND Emergency Medicine